=== PATIENT | female | born 1975 | race Caucasian/White ===

== ENCOUNTER 2017-01-16 09:37 | Inpatient (IN) | payer BC ==
[~2017-01-16] VITALS: Ht 175.3 cm; Wt 82.3 kg
[2017-01-16] VITALS (9 sets, daily range): BP systolic 136–159; BP diastolic 81–107; BMI 26.5
[~2017-01-16 09:37] MED LIST: ADDERALL 20 MG20 M1 PO; GLUCOPHAGE1000 MG PO; PRILOSEC20 MG PO; WELLBUTRIN75 MG PO
[2017-01-16 10:24] LABS: COLOR STRAW (YELLOW)
[2017-01-16 10:25] LABS: APPEARANCE CLEAR (CLEAR); BILIRUBIN NEGATIVE (NEGATIVE); GLUCOSE 1000 mg/dL (NEGATIVE); KETONE NEGATIVE (NEGATIVE); LEUKOCYTE ESTERASE NEGATIVE (NEGATIVE); NITRITE NEGATIVE (NEGATIVE); PROTEIN 2+ mg/dL (NEGATIVE); UROBILINOGEN NORMAL (NORMAL)
[2017-01-16 10:26] LABS: BACTERIA MODERATE /hpf (NONE SEEN); EPITHELIAL CELLS 0-5 /hpf (0-5); RED CELLS - URINE 0-5 /hpf (0-5); WHITE CELLS - URINE 0-5 /hpf (0-5); YEAST <1+ /hpf (NONE SEEN)
[2017-01-16 10:48] LABS: KETONE - SERUM NEGATIVE (NEGATIVE)
[2017-01-16 10:57] LABS: ALBUMIN 2.8 g/dL (3.4-5.0); ALKALINE PHOSPHATASE 102 U/L (46-116); ALT (SGPT) 28 U/L (10-68); BILIRUBIN - TOTAL 0.24 mg/dL (0.2-1.3); CALC OSMOLALITY 278 mosm/kg (275-300); CALCIUM 8.5 mg/dL (8.5-10.1); CARBON DIOXIDE 27.6 mmol/L (21.0-32.0); CHLORIDE - SERUM 96 mmol/L (98-107); CREATININE - SERUM 0.7 mg/dL (0.6-1.3); GLUCOSE 325 mg/dL (74-106); PROTEIN - SERUM 7.2 g/dL (6.4-8.2); SODIUM 131 mmol/L (136-145); UREA NITROGEN 22 mg/dL (7-18); eGFR NON AFRICAN AMERICAN > 90 mL/min (90-120)
[2017-01-16 11:01] LABS: CREATINE KINASE 207 UL (21-215)
[2017-01-16 11:17] LABS: TROPONIN-I < 0.017 ng/mL (0.000-0.060)
[2017-01-16 11:40] LABS: BASOPHILS 0.2 % (0.0-2.0); EOSINOPHILS 2.2 % (0-7); HEMATOCRIT 25.4 % (36.0-48.0); IMMATURE GRANULOCYTES 0.2 % (0-5); LYMPHOCYTES 29.5 % (15-50); MCHC 26.8 g/dL (31.0-37.0); MCV 59.2 fL (80.0-100.0); MEAN PLATELET VOLUME 9.1 fL (7.4-10.4); NEUTROPHILS 57.9 % (40-80); PLATELET COUNT 311 10x3/uL (130-400); RBC 4.29 10x6/uL (4.00-5.40); RDW 19.1 % (11.5-14.5); WBC 5.9 10x3/uL (4.8-10.8)
[2017-01-16 11:42] LABS: HEMOGLOBIN 6.8 g/dL (12-16); MCH 15.9 pg (26.0-34.0)
--- NOTE | 2017-01-16 13:25 | NUR ---
rec'd REPORT FROM [facility] (JULIA) ROOM READY FOR PT
--- NOTE | 2017-01-16 14:24 | NUR ---
CONSENT SINGED FOR BLOOD TRANSFUSION - DISUCCES PROCEDURE WITH PT - PT ANXIOUS ABOUT RECEIEVING PRBC. PT AGREED TO TRANSFUSION - WILL START AT 75MG/HR. ~1430 - PT C/O ITCHING - RN PAGED MD TO REQUEST BENADRYL AND TO INFORM OF ADMISSION. 1448 PAGED MD - AWAITING CALL BACK 1510 PAGED MD - AWAITING CALL BACK 1540 RN SPOKE TO MD TO INFORM, PT SLIGHTLY ELEVATED TEAM 99.[address] WOMACK ORDER BENADRYL IV PUSH - GIVEN. 1635 CALLED ANSWERING SERVICE - ASKED IF MDs PAGER IS WORKING - INFORMED AN VIBRATION ANALYST COULD BE AVAILABLE - CALLED MED I/II TO LOCATE MD/VIBRATION ANALYST. SPOKE TO EFREN - PT'S BLOOD SUGAR AT 427, RECHECK AT 402, PT REFUSED STAT LAB DRAW, AND PT REFUSED 20 UNITS HUMALOG, NOTIFIED FISH SKINNING MACHINE FEEDER - PT AGREED TO 15 UNITS HUMALOG - GIVEN. WILL REASSESS BLOOD SUGAR IN 30 MINUTES 1650 - TEMP 100.1 - DR. WOMACK ON UNIT FOR ASSESSMENT - INFORMED OF TEMP. 1330
--- NOTE | 2017-01-16 14:44 | NUR ---
Patient Name: MELY FRY Admission Status: ER Accout number: [id number] Admission Date: 01-16-2017 : 1975 Admission Diagnosis: anemia w/ tachycardia Attending: MILAGRO Current LOS: 1 Anticipated DC Date: 01-18-2017 Planned Disposition: Home Primary Insurance: [employer] [facility] Discharge Planning Comments: Cm met with patient to complete initial discharge planning assessment. Patient gave consent to complete assessment. Patient reports she lives home independently with her significant other. She denied use of community resources. Patient plans to return to home at discharge with her significant other. CM will continue to follow and assist with dc plan/needs. Manager Story: Emma Redd RN, [facility] [phone] Is the patient Alert and Oriented? Yes 0 * PCP Dr. Aguirre 0 * Pharmacy [facility] on [address] 0 * Preadmission Environment Home with Family 0 * ADLs Independent 0 * Equipment None 0 * List name and contact numbers for known caregivers / representatives who currently or will assist patient after discharge: Shawn Mccrary - [facility] - [phone] 0 * Community resources currently utilized None 0 * Additional services required to return to the preadmission environment? No 0 * Can the patient safely return to the preadmission environment? Yes 0 * Has this patient been hospitalized within the prior 30 days at any hospital? No
--- NOTE | 2017-01-16 15:02 | NUR ---
REQUESTED RESULTS AND UPDATE OF LAB
[2017-01-16] MEDS ORDERED: LEXAPRO10 MG PO (16:25)
[2017-01-16] MEDS ORDERED: DIFLUCAN150 MG PO (16:26)
--- NOTE | 2017-01-16 16:56 | NUR ---
DECREASED PRMB TO 10O ML/HOUR
--- NOTE | 2017-01-16 16:57 | NUR ---
RECHECKED BLOOD SUGAR [address] WOMACK
--- NOTE | 2017-01-16 17:30 | NUR ---
AT BEDSIDE FOR ASSESSMENT - REC'D ORDERS SEE WENDY CPOC
--- NOTE | 2017-01-16 18:00 | NUR ---
SIGNIFACANT OTHER IN ROOM VISITING. 2ND UNIT PRBC INFUSING - PT VOICED NOT CONCERNS OR DISTRESS. DR. NOVAK ORDERED 14MCG NICOTINE PATCH. 1814 X-RAY TECH AT BEDSIDE TO TRANPORT PT TO X-RAY - PT VISITING WITH FAMILY ASKE TO RTN LATER TONIGHT. TECH AGREED TO RTN FOR PT. 1829 SISTER CALLED - ANSWERED ALL QUESTIONS PER PT REQUEST - CPOC
--- NOTE | 2017-01-16 19:15 | NUR ---
SHIFT ASSESSMENT COMPLETED. SIGNIFICANT OTHER AT BEDSIDE. WITNESSED LIVING WILL. RT WRIST 20G PIV INTACT INFUSING PRBC'S @ 150ML/HR. NO REACTION NOTED. SCABS/SORES NOTED TO UPPER ARMS, BACK AND SCALP LINE. SCD'S ON TO BILATERAL LE'S AND WORKING PROPERLY. HEELS BRIDGED. +4 PITTING EDEMA TO LOWER HALF OF LEGS BILATERALLY. SINUS TACHYCARDIAC ON THE MONITOR IN THE 110'S. WILL MONITOR.
[2017-01-16] MEDS ORDERED: ZANAFLEX4 MG PO (19:58)
--- NOTE | 2017-01-16 20:18 | NUR ---
IV LASIX GIVEN. PRBC'S COMPLETED AT 2014. NO REACTION NOTED. WILL MONITOR.
--- NOTE | 2017-01-16 21:30 | NUR ---
FSBS ASSESSSED. SUGAR-157. DENIES SLIDING SCALE INSULIN AT THIS TIME OR NICOTINE PATCH. REQUESTING ZANAFLEX. MANAGER PLACEMENT MADE AWARE. WILL MONITOR.
[2017-01-16 23:45] LABS: MAGNESIUM - SERUM 2.3 mg/dL (1.8-2.4); THYROID STIMULATING HORMONE 1.9 uIU/mL (0.36-3.74)
--- NOTE | 2017-01-17 | NUR ---
ASSISTED UP TO BSC. URINE AND BM NOTED AND EMPTIED, BACK TO BED PER SELF. CONNECTED BACK TO IV FLUIDS. NS @ 75ML/HR RESTARTED.
--- NOTE | 2017-01-17 02:00 | NUR ---
EYES CLOSED. LAYING ON LEFT SIDE. NO ACUTE DISTRESS NOTED. WILL MONITOR.
[2017-01-17 03:45] VITALS: BP 138/84
--- NOTE | 2017-01-17 04:00 | NUR ---
EYES CLOSED. NO ACUTE DISTRESS NOTED. WILL MONITOR.
--- NOTE | 2017-01-17 04:40 | NUR ---
ISAAK SCHWARTZ AT BEDSIDE TO DRAW AM LABS. ASSESSED VITAL SIGNS. EMPTIED BSC. PO ZANAFLEX GIVEN. WILL MONITOR.
[2017-01-17 05:11] LABS: BASOPHILS 0 % (0.0-2.0); EOSINOPHILS 2.5 % (0-7); IMMATURE GRANULOCYTES 0.2 % (0-5); LYMPHOCYTES 29.1 % (15-50); MCHC 28.7 g/dL (31.0-37.0); MEAN PLATELET VOLUME 9.9 fL (7.4-10.4); MONOCYTES 10.4 % (2-11); NEUTROPHILS 57.8 % (40-80); PLATELET COUNT 328 10x3/uL (130-400); RBC 4.99 10x6/uL (4.00-5.40); RDW 21.9 % (11.5-14.5); WBC 6.3 10x3/uL (4.8-10.8)
[2017-01-17 05:13] LABS: HEMOGLOBIN A1C 12.9 % (4.8-6.0)
[2017-01-17 05:15] LABS: CALC OSMOLALITY 291 mosm/kg (275-300); CARBON DIOXIDE 28.2 mmol/L (21.0-32.0); CHLORIDE - SERUM 104 mmol/L (98-107); CHOL - HDL RATIO 4.1 ratio (2.3-4.1); CHOLESTEROL, TOTAL 231 mg/dL (0-200); CREATININE - SERUM 0.7 mg/dL (0.6-1.3); GLUCOSE 352 mg/dL (74-106); HDL CHOLESTEROL 57 mg/dL (32-96); LDL CHOLESTEROL 132 mg/dL (0-100); LDL-HDL RATIO 2.3 ratio (1.5-3.5); POTASSIUM - SERUM 4.5 mmol/L (3.5-5.1); SODIUM 138 mmol/L (136-145); TRIGLYCERIDE 214 mg/dL (30-200); UREA NITROGEN 18 mg/dL (7-18); eGFR NON AFRICAN AMERICAN > 90 mL/min (90-120)
--- NOTE | 2017-01-17 05:15 | NUR ---
STANDING UP IN ROOM BRUSHING HAIR. NO ACUTE DISTRESS NOTED. WILL MONITOR.
[2017-01-17 05:18] LABS: % SATURATION 5 % (15-55); IRON 22 ug/dl (35-150); TOTAL IRON BIND CAPACITY 431 ug/dl (260-445); UNSAT IRON BIND CAPACITY 409 ug/dl (150-375)
[2017-01-17 05:28] LABS: HEMATOCRIT 31.4 % (36.0-48.0); MCV 62.9 fL (80.0-100.0)
[2017-01-17 07:00] VITALS: BP 146/79
--- NOTE | 2017-01-17 07:00 | NUR ---
REC'D REPORT FROM OUTGOING RN - PT RESTING SUPINE IN BED WITH EYES CLOSED - EASILY AWAKENED BY VERBAL STIMULI - VOICE NO DISTRESS - ASSESSMENT COMPLETE - PT UP TO BSC. 0730 - BREAKFAST TRAY GIVEN TO PT. CPOC
--- NOTE | 2017-01-17 10:14 | HP ---
PATIENT: MELY FRY MEDICAL RECORD: [id number] ACCOUNT: [id number] LOCATION:[facility] D.2309 : 77 ADMISSION DATE: 01/16/17 HISTORY AND PHYSICAL EXAMINATION HISTORY OF PRESENT ILLNESS: Ms. Fry is a nice 41-year-old white female, who presents initially to the walk-in clinic this morning with weakness, shortness of breath, some chest discomfort. She has a history of uncontrolled diabetes, recent sugars have been running in 300s to 400s. She has been a diabetic for over 10 years. She has a history of gestational diabetes in her earlier 20s with her pregnancies, most recent hemoglobin A1c was 13. She has a history of chronic anemia and has taken iron infusions in the past. She saw Dr. Prieto previously. She does have pretty heavy monthly periods. They usually last 4-5 days and occur about once a month. She has had increasing fatigue and generalized weakness. 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 She works 3 days and states she will gain about 10-15 pounds with being up on her feet and then when she goes home, she is so exhausted and she will diurese over the next few days. She has had polydipsia, polyuria, polyphagia. Her lab reveals a marked microcytic anemia, compatible with an iron deficiency with a hemoglobin of around 6. Her EKG shows a sinus tachycardia. She has got edema. She is admitted at this time for transfusion and further evaluation. PAST MEDICAL HISTORY: Significant for known diabetes for the last 10 years that is complicated by neuropathy. She also has a history of GERD. PAST SURGICAL HISTORY: Include a tubal ligation and cataract surgery. ALLERGIES: None. HOME MEDICATIONS: Include Janumet 1000 b.i.d., Lexapro 10 a day, Adderall 20 every day, Toujeo 45 units a day, Invokana 300 mg a day, OTC Prilosec, Zanaflex, gabapentin 100 t.i.d., and tramadol p.r.n. FAMILY HISTORY: Significant for heart disease and diabetes. SOCIAL HISTORY: Seldom drinks. She smokes a little less than a pack per day. REVIEW OF SYSTEMS: She has had quite a bit of fluctuation in her weight. She has had some chest tightness with marked shortness of breath and generalized weakness and fatigue. She denies any changes in her bowel, states she is chronically constipated. No dysuria, no rashes. PHYSICAL EXAMINATION: GENERAL: Pale and moderately ill in appearance. She is in no distress, but obviously does not feel well. HEENT: Conjunctivae are pale. NECK: Soft and supple. Thyroid is not palpable. HEART: Regular and slightly tachycardic. LUNGS: With good breath sounds. ABDOMEN: Soft. Liver and spleen are not enlarged. EXTREMITIES: Lower extremities reveal no pitting edema of her feet. NEUROLOGIC: Without any gross focal deficits. IMPRESSION: 1. Severe microcytic anemia. HISTORY AND PHYSICAL [id number] MELY FRY 2. Uncontrolled diabetes with neuropathy. 3. Edema. 4. Strong family history of cardiac disease and diabetes. PLAN: Admit, transfuse, check iron studies, hematology consult, check an echo. Must see orders for plan. TRANSINT:[id number] Voice Confirmation ID: [id number] DOCUMENT ID: [id number] NITA WOMACK DO at 1014 CC: [id number] DICTATION DATE: 01/16/171747 MEDIA RELATIONS SPECIALIST: 01/16/172133 ADM IN [facility] [address] [id number]
[2017-01-17 16:00] VITALS: BP 100/58
[2017-01-17 17:00] VITALS: BP 123/82
--- NOTE | 2017-01-17 18:19 | NUR ---
1600-RECIEVED PT AWAKE AND ALERT--NOTED MARKED DECREASED PITTINEDEMA TO BOTH LEGS-PT STATES DECREASED-PT REQUESTING SHOWER AND AMBULATION -NOTIFIED ROUTE SALES REPRESENTATIVE IF ROOM ASSIGNMENT AVAILABLE-STATED NO-NOTIFIED DR WOMACK-RECIEVED VERBAL OK TO ACCOMPANY PT TO CLOSED PT RM WITH SHOWER- 1630-RETURNED TO UNIT-R PERIPHERAL IV RESTARTED N/S AT 75ML/H-COMPLETE NAT SUERO DONE-FAMILY AT [facility]-QUESTIONS ADDRESSED TO BEST OF ABILITY-PT CONTINUES TO REFUSE HABITROL PATCH-FSBS 152-PT STATED FEELS LIGHT HEADED-AGREED WITH PT TO HOLD S/S INSULIN AT THIS
[2017-01-17 19:00] VITALS: BP 128/84
--- NOTE | 2017-01-17 19:32 | NUR ---
REPORT RECIEVED. ASSESSMENT COMPLETEPER LFOW SHEET. VSS. WILL CNOTINUE TO MONITOR DENIES NEEDS.
--- NOTE | 2017-01-17 21:16 | NUR ---
NO NEW CHANGES. VSS. FAMILY AT BEDSIDE. DENIES NEEDS.
[2017-01-17 23:00] VITALS: BP 134/89
--- NOTE | 2017-01-17 23:04 | NUR ---
PT SLEEPING COMFORTABLY. VSS. WILL CONTINUE TO MONITOR.
--- NOTE | 2017-01-18 03:16 | NUR ---
NO NEW CHANGES AT THIS TIME. VSS. PT SLEPEING COMFORTABLY. WILL CONTINUE TO MONITOR.
--- NOTE | 2017-01-18 05:10 | NUR ---
REC'D PT TO ROOM 1215 VIA W/C TRANSPORT FROM ICU. VSS. PT A&OX3. ORIENTED TO ROOM, BATHROOM, BED CONTROLS AND CL USE. BED PLACED IN LOW POSITION WITH UPPER SIDE RAILS RAISED X2. CL/PHONE WITHIN REACH. PT RATES PAIN 2-3/10 AT THIS TIME. ICE GIVEN PER REQUEST. DENIES ADDITIONAL NEEDS AT THIS TIME.
[2017-01-18 07:45] VITALS: BP 84/45
--- NOTE | 2017-01-18 08:15 | NUR ---
PATIENT IS RESTING QUIETLY IN HER BED. SHE HAS EATEN HER MORNING MEAL AND DENIES ANY NAUSEA. HER BS ARE ACTIVE, LUNGS ARE CLEAR AND RRR AUSCULTATES. HER IV SITE DRESSING NEEDS REPAIR, INSERTION SITE IS WITHOUT REDNESS OR EVIDENCE OF IRRITATION. SHE ANTICIPATES DISCHARGE TODAY AND VERIFIES THAT SHE DID REFUSE IV FLUIDS EARLIER THIS MORNING. HYPOTENSION NOTED AND PATINET AGREES TO HAVE FLUIDS REINITIATED. SHE STATES THAT UPON ADMISSION SHE HAD 4+ PITTING EDEMA TO BLE, CURRENTLYSHE HAS TRACE EDEMA BLE NOTED. SHE DOES C/O MILD NICOLE AND OCCASIONAL LE MUSCLE CRAMPS. COFFEE PROVIDED PER REQUEST. DENIES OTHER NEEDS AT THIS TIME. CALL LIGHT IS WITHIN HER REACH.
[2017-01-18 09:34] LABS: BASOPHILS 0.1 % (0.0-2.0); EOSINOPHILS 1.8 % (0-7); HEMATOCRIT 30.5 % (36.0-48.0); HEMOGLOBIN 8.6 g/dL (12-16); IMMATURE GRANULOCYTES 0.1 % (0-5); LYMPHOCYTES 23.1 % (15-50); MCHC 28.2 g/dL (31.0-37.0); MCV 63.9 fL (80.0-100.0); MONOCYTES 9.5 % (2-11); NEUTROPHILS 65.4 % (40-80); PLATELET COUNT 281 10x3/uL (130-400); RBC 4.77 10x6/uL (4.00-5.40); RDW 22.3 % (11.5-14.5)
[2017-01-18 09:35] LABS: WBC 8.1 10x3/uL (4.8-10.8)
--- NOTE | 2017-01-18 09:43 | NUR ---
PATIENT RESTING QUIETLY WITHOUT NOTED NEEDS.
[2017-01-18 09:55] LABS: CALC OSMOLALITY 278 mosm/kg (275-300); CARBON DIOXIDE 24.5 mmol/L (21.0-32.0); CHLORIDE - SERUM 102 mmol/L (98-107); CREATININE - SERUM 0.8 mg/dL (0.6-1.3); GLUCOSE 167 mg/dL (74-106); SODIUM 135 mmol/L (136-145); UREA NITROGEN 27 mg/dL (7-18); eGFR NON AFRICAN AMERICAN 85 mL/min (90-120)
--- NOTE | 2017-01-18 10:30 | NUR ---
PATIENT UP AND ABOUT; IN WHEELCHAIR WITH FAMILY ESCORTING PATIENT TO GO OUTSIDE. REMAINS STABLE WITH NO SIGNS OF DISTRESS.
--- NOTE | 2017-01-18 12:30 | NUR ---
REMAINS STABLE IN ROOM WITH NO SIGNS OF DISTRESS.
[2017-01-18 12:39] VITALS: BP 122/75
--- NOTE | 2017-01-18 13:30 | NUR ---
UP AND ABOUT IN ROOM WITH VISITORS AT BEDSIDE.
[2017-01-18 14:54] VITALS: Ht 175.3 cm; Wt 82.3 kg
--- NOTE | 2017-01-18 14:59 | NUR ---
Reconnected patient to IV and started existing IV fluid at KVO 20 ml an hour.
--- NOTE | 2017-01-18 15:30 | NUR ---
STATES SHE FELT WEAK WHEN BLOOD SUGAR WAS 130MG/DL AROUND LUNCH TIME BUT FEELS BETTER NOW AFTER EATING. UP AND ABOUT IN ROOM WITH VISITORS AT BEDSIDE. IN WHEELCHAIR TO GO OUTSIDE WITH VISITORS.
--- NOTE | 2017-01-18 17:30 | NUR ---
REMAINS STABLE IN ROOM WITH NO SIGNS OF DISTRESS. PIV PATENT.
[2017-01-18 19:55] VITALS: BP 159/85
--- NOTE | 2017-01-18 21:20 | NUR ---
FSBS 311, 20 UNITS HUMALOG GIVEN TO LEFT UPPER ARM PER SSI ORDER. NICOTINE PATCH REFUSED BY PT. LASIX GIVEN VIA SIVP PER ORDERS. PT STATES THAT HER DAUGHTER IS COMING TO VISIT AT A LATER TIME AND REQUEST TO TAKE ZANAFLEX WHEN SHE IS READY TO GO TO SLEEP. BED IN LOW POSITION, UPPER SIDE RAILS RAISED. CL/PHONE WITHIN REACH.
--- NOTE | 2017-01-18 22:15 | NUR ---
PT SITTING UP IN HIGH FOWLERS POSITION VISITING WITH FAMILY MEMBERS AT THIS TIME. PAIN 2/10, TO BACK AND LEGS, DENIES NEED FOR INTERVENTION AT THIS TIME. ASKS TO AMBULATE AROUND UNIT WITH FAMILY MEMBER. FALL PRECAUTIONS DISCUSSED, VERBALIZED UNDERSTANDING. BED IN LOW POSITION WITH UPPER SIDE RAILS RAISED X2. CL/PHONE WITHIN REACH. PT VERBALIZES THAT SHE WILL SIT DOWN IF SHE BECOMES LIGHTHEADED.
--- NOTE | 2017-01-18 22:40 | NUR ---
BACK TO ROOM FROM AMBULATING WITH FAMILY MEMBER. DENIES NEEDS AT THIS TIME
--- NOTE | 2017-01-18 23:09 | NUR ---
PAIN 3-4/10, INTERMITTENT TO BACK AND LEGS, BURNING AND TINGLING. REQUEST ULTRAM AND ZANAFLEX. GIVEN PER REQUEST/ORDER. FAMILY MEMBER NO LONGER AT BEDSIDE. ICE CHIPS GIVEN PER REQUEST. DENIES ADDITIONAL NEEDS AT THIS TIME. BED IN LOW POSITION WITH UPPER SIDE RAILS RAISED X2. CL/PHONE WITHIN REACH. WILL CONT TO MONITOR AND ASSIST PRN.
--- NOTE | 2017-01-18 23:54 | NUR ---
PAIN REASSESSMENT COMPLETED. PT RESTING WITH EYES CLOSED WHEN RN ENTERED ROOM. VSS. PAIN 1-210. DENIES NEEDS AT THIS TIME. BED IN LOW POSITION. CL/PHONE WITHIN REACH. WILL CONT TO MONITOR.
[2017-01-19 00:10] VITALS: BP 163/92
--- NOTE | 2017-01-19 02:33 | NUR ---
ROUNDS MADE. PT RESTING WITH EYES CLOSED. RESPIRATIONS REGULAR, NO S/S OF DISTRESS NOTED. BED IN LOW POSITION WITH UPPER SIDE RAILS RAISED X2. CL/PHONE WITHIN REACH. WILL CONT TO MONITOR AND ASSIST PRN.
--- NOTE | 2017-01-19 03:54 | NUR ---
ROUNDS MADE. PT RESTING WITH EYES CLOSED. RESPIRATIONS REGULAR, NO S/S OF DISTRESS. BED IN LOW POSITION WITH UPPER SIDE RAISED X2. CL/PHONE WITHIN REACH. WILL CONT TO MONITOR.
[2017-01-19 04:20] VITALS: BP 139/82
[2017-01-19 06:29] LABS: BASOPHILS 0.2 % (0.0-2.0); EOSINOPHILS 2.6 % (0-7); HEMATOCRIT 31.4 % (36.0-48.0); HEMOGLOBIN 8.8 g/dL (12-16); IMMATURE GRANULOCYTES 0.2 % (0-5); LYMPHOCYTES 30.5 % (15-50); MCV 64.9 fL (80.0-100.0); MEAN PLATELET VOLUME 9.9 fL (7.4-10.4); MONOCYTES 11.5 % (2-11); PLATELET COUNT 304 10x3/uL (130-400); RBC 4.84 10x6/uL (4.00-5.40); RDW 22.8 % (11.5-14.5)
[2017-01-19 06:40] LABS: MCH 18.2 pg (26.0-34.0); WBC 5.8 10x3/uL (4.8-10.8)
[2017-01-19 07:07] LABS: ALBUMIN 2.3 g/dL (3.4-5.0); ANION GAP 8.5 mmol/L (8-16); BILIRUBIN - TOTAL 0.1 mg/dL (0.2-1.3); CARBON DIOXIDE 28.7 mmol/L (21.0-32.0); POTASSIUM - SERUM 4.2 mmol/L (3.5-5.1); PROTEIN - SERUM 6.2 g/dL (6.4-8.2)
[2017-01-19 08:00] VITALS: BP 160/93
--- NOTE | 2017-01-19 08:15 | NUR ---
PATIENT IS AWAKE AND ALERT, DRESSED AND EXPECTING TO BE DISCHARGED HOME TODAY. 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 SHE FEELS THAT HER FSBS COVERAGE WOULD BE MORE BENEFICIAL DURING THE NIGHT HOURS. SHE REQUESTS AN ULTRAM FOR C/O BACK AND HIP PAIN THAT IS A CHRONIC CONCERN FOR HER. SHE RATES THIS PAIN A 4-5. DENIES OTHER NEEDS. IV TO THE RIGHT FA IS PATENT TO IV FLUSH/ PUSH. CALL LIGHT IS WITHIN HER REACH. SHE DENIES OTHER NEEDS AT THIS TIME. ENCOURAGED HER TO CALL FOR AND NEEDS/ QUESTIONS.
--- NOTE | 2017-01-19 09:00 | NUR ---
PATIENT IS AWAKE AND ALERT. 1+ PITTING EDEMA NOTED TO ZAHRA LOWER EXTREMITIES. DISCUSSED WITH HER THAT WE HELD HER LASIX YESTERDAY AND THE HIGH SODIUM DIET SHE HAD LAST NIGHT. HER LOW SODIUM WAS THEN NOTED. WILL REPORT TO PHYSICIAN.
[2017-01-19 09:17] LABS: C-PEPTIDE 2.9 ng/mL (1.1-4.4)
--- NOTE | 2017-01-19 11:30 | NUR ---
PATIENT'S FSBS DOESN'T REQUIRE INSULIN COVERAGE AT THIS TIME. DISCUSSED HER DIET AND CONCERN FOR MANAGEMENT.
--- NOTE | 2017-01-19 12:00 | NUR ---
DR. MOTT IN THE ASSESS PATINET. EXPECTATION IS FOR DISCHARGE. REPORTED HER EDEMA
[2017-01-19] MEDS ORDERED: FERROUS SULFAT325 MG PO (12:10)
[2017-01-19] MEDS ORDERED: NICODERM C1 PATCH .1 TRANSDERM (12:10)
[2017-01-19] MEDS ORDERED: LANTUS INSULIN10 ML SC (12:11)
[2017-01-19] MEDS ORDERED: GLUCOPHAGE500 MG PO (12:11)
[2017-01-19] MEDS ORDERED: LISINOPRIL10 MG PO (12:11)
[2017-01-19] MEDS ORDERED: HUMALOG 30100 UNITS/ SC (12:12)
[2017-01-19] MEDS ORDERED: KLOR-CON 1010 MEQ PO (12:16)
[2017-01-19] MEDS ORDERED: LASIX20 MG PO (12:16)
--- NOTE | 2017-01-19 12:52 | NUR ---
ORDERS FOR DISCHARGE NOTED. PATIENT IS AWARE AND HAS A RIDE HOME ALREADY HERE. WILL PROCESS.
--- NOTE | 2017-01-19 14:38 | NUR ---
DISCUSSED THE DISCHARGE INSTRUCTIONS WITH PATIENT. INCLUDED HER MEDICATIONS ORDERED AND HIGHLIGHTED THEM FOR EASY IDENTIFICATION. SHE UNDERSTANDS THE SLIDING SCALE. STATES THAT SHE HAS SUPPLIES AT HOME. VARIFIES THAT [facility] IS CORRECT. ALL FOLLOW UP APPTS MADE AND WRITTEN OUT FOR HER. SHE IS APPRECIATIVE AND ANXIOUS TO GO HOME. OUT TO CAR VIA WHEELCHAIR, ACCOMPANIED BY VOLUNTEER
--- NOTE | 2017-01-26 14:37 | EC ---
PATIENT:MELY FRY DATE OF SERVICE: 01/16/17 SEX: F MEDICAL RECORD: [id number] DATE OF : [birth year] LOCATION:[facility] AGE OF PATIENT: 41 ADMISSION DATE: 01/16/17 REFERRING PHYSICIAN: INTERPRETING PHYSICIAN: BECKY JOHNSON MD ECHOCARDIOGRAM REPORT ECHO CHARGES 4 ECHO COMPLETE CLINICAL DIAGNOSIS: EDEMA/SOB ECHOCARDIOGRAPHIC MEASUREMENTS (adult normal given) AC root (d.<3.7cm) 1.3 LV Septum d (<1.2 cm> 1.3 Valve Excursion 1.9 LV Septum (systole) 1.5 Left Atria (s.<4.0cm> 3.8 LVPW d(<1.2cm) 1.6 RV (d.<2.3cm) 3.4 LVPW (sytole) 1.7 LV diastole(<5.6CM) 4.2 MV E-F(>70mm/sec) LV systole 2.6 LVOT Diameter 1.8 MV exc.(>10mm) 1.8 Est.ejection fraction (50-75%) Pericardial Effusion N DOPPLER: LVIT A 138 E LA RVSP 20 LVOT 112 AOP1/2T Asc. Ao 132 RVOT 126 RA PA 150 AV Gradient Peak 6.95 AV Mean 3.58 AV Area 3.0 MV Gradient Peak MV Mean MV Area COMMENTS: Photographic Hand Developer: Tano SUTHERLAND Compugraph Operator:Eileen Denis TAPE# PACS DATE OF SERVICE: 01/17/2017 Echocardiogram FINDINGS: 1. Left ventricular chamber size is within normal limits. Left ventricular systolic function is normal. Overall ejection fraction estimated at 65%. 2. Left atrium, right atrium, and right ventricular chamber sizes are within normal limits. 3. Valvular structures have normal structure and motion. ECHOCARDIOGRAM REPORT [id number] MELY FRY 4. Doppler interrogation only reveals mild tricuspid regurgitation. No other valvular insufficiency or stenosis. Pulmonary systolic pressure is normal estimated at 21 mmHg. 5. No evidence of pericardial effusion or left ventricular thrombus. TRANSINT:[id number] Voice Confirmation ID: [id number] DOCUMENT ID: [id number] 01/25/2017 Edited to correct date of service, dm. BECKY JOHNSON MD at [id number] CC: [id number] DICTATION DATE: 01/18/17 1207 PHARMACOVIGILANCE SAFETY EXPERT: 01/18/17 1420 DIS IN 01/19/17 [address] [place] [id number] [id number]
== END 2017-01-19 14:42 | disposition home or self-care (01) | DRG 812 ==
LOC: D.ER 09:37 → D.ICU 12:59 → D.WS 12:59
PROVIDERS: Emergency Medicine; Family Medicine; ADMIT Family Medicine
DX: D50.9 Iron deficiency anemia, unspecified (principal); E11.65 Type 2 diabetes mellitus with hyperglycemia; E11.40 Type 2 diabetes mellitus with diabetic neuropathy, unspecified; Z79.4 Long term (current) use of insulin; R07.9 Chest pain, unspecified; Z72.0 Tobacco use

== ENCOUNTER 2017-10-17 05:12 | Inpatient (IN) | payer BC ==
[~2017-10-17] VITALS: Ht 175.3 cm; Wt 88.0 kg
[2017-10-17] VITALS (44 sets, daily range): BP systolic 106–183; BP diastolic 66–115; BMI 29.6
[~2017-10-17 05:12] MED LIST changes: +DIFLUCAN150 MG PO; +FERROUS SULFAT325 MG PO; +GLUCOPHAGE500 MG PO; +HUMALOG 30100 UNITS/ SC; +KLOR-CON 1010 MEQ PO; +LANTUS INSULIN10 ML SC; +LASIX20 MG PO; +LEXAPRO10 MG PO; +LISINOPRIL10 MG PO; +NICODERM C1 PATCH .1 TRANSDERM; +ZANAFLEX4 MG PO
[2017-10-17 05:40] LABS: ALBUMIN 2.1 g/dL (3.4-5.0); ALKALINE PHOSPHATASE 226 U/L (46-116); ALT (SGPT) 22 U/L (10-68); CALCIUM 8.1 mg/dL (8.5-10.1); CARBON DIOXIDE 22.8 mmol/L (21.0-32.0); CHLORIDE - SERUM 90 mmol/L (98-107); CKMB 5.9 U/L (0.0-3.6); CREATINE KINASE 195 UL (21-215); CREATININE - SERUM 1.3 mg/dL (0.6-1.3); POTASSIUM - SERUM 4.7 mmol/L (3.5-5.1); PROTEIN - SERUM 6.5 g/dL (6.4-8.2); SODIUM 123 mmol/L (136-145); TROPONIN-I < 0.017 ng/mL (0.000-0.060); UREA NITROGEN 26 mg/dL (7-18); eGFR NON AFRICAN AMERICAN 48 mL/min (90-120)
[2017-10-17 05:41] LABS: CALC OSMOLALITY 314 mosm/kg (275-300); GLUCOSE 1210 mg/dL (74-106)
[2017-10-17 05:48] LABS: BASOPHILS 0.1 % (0-2); EOSINOPHILS 2.4 % (0-7); HEMATOCRIT 26.4 % (36.0-48.0); HEMOGLOBIN 7.3 g/dL (12-16); IMMATURE GRANULOCYTES 0.3 % (0-5); LYMPHOCYTES 15.7 % (15-50); MCH 17.8 pg (26.0-34.0); MCHC 27.7 g/dL (31.0-37.0); MCV 64.2 fL (80.0-100.0); MEAN PLATELET VOLUME 9.9 fL (7.4-10.4); MONOCYTES 6.1 % (2-11); NEUTROPHILS 75.4 % (40-80); PLATELET COUNT 417 10x3/uL (130-400); RBC 4.11 10x6/uL (4.00-5.40); WBC 9.6 10x3/uL (4.8-10.8)
[2017-10-17 07:01] LABS: ANION GAP 15.2 mmol/L (8-16); CALCIUM 7.8 mg/dL (8.5-10.1); CARBON DIOXIDE 22.7 mmol/L (21.0-32.0); CREATININE - SERUM 1.3 mg/dL (0.6-1.3); MAGNESIUM - SERUM 1.9 mg/dL (1.8-2.4); PHOSPHOROUS 4.9 mg/dL (2.5-4.9); POTASSIUM - SERUM 4.9 mmol/L (3.5-5.1)
[2017-10-17 07:19] LABS: CHOL - HDL RATIO 5.7 ratio (2.3-4.1); CHOLESTEROL, TOTAL 302 mg/dL (0-200); HDL CHOLESTEROL 53 mg/dL (32-96); TRIGLYCERIDE 521 mg/dL (30-200)
[2017-10-17] MEDS ORDERED: ULTRAM50 MG PO (07:45)
[2017-10-17] MEDS ORDERED: GABAPENTIN100 MG PO (07:46)
--- NOTE | 2017-10-17 09:59 | NUR ---
0730-RECIEVED AWAKE ALERT-MARKED SOBOE-ABLE TO MVE SELF FROM STRETCHER TO BED-DIFFICULT WITH STRENGTH-ASSISTED TO RESTROOM-REQUIRED 50%ASSIST WITH BALANCE ISSUE-QUESTIONED HERSELF IF SHE HAS M.S.-NOTED MARKED EDEMA TO BOTH LEGS-STATED VISION BECOMING BLURRY-NOTED R PERIPHERAL IV INFUSING N/S AT 100ML/H INSULIN GTT AT 5UNITS/H PLACED TO MONITOR FOR ST 110-NIBP 147/91 C/O SOME SOB AND HEAVINESS-ASSISTED TO BED 0815 L HAND 22 G OBTAINED LAB SENT FOR GLUCOSE CHECK-INSULIN GTT CHANGED TO L ARM--R 20G FOR PRBC -CONSENT OBTAINED FOR BLOOD 0830-PRBC STARTED IN R ARM-BENADRYL 12.5MG IVP GIVEN PREMED TYLENOL PO GIVEN FOR PREMED 0915-C/O TIGHTNESS TO CHEST-O2 SAT 100-HR 110-NIBP 186/114-DR MARCUS PG'D -LASIX 10MG PO GIVEN
[2017-10-17 10:27] LABS: MAGNESIUM - SERUM 1.8 mg/dL (1.8-2.4); PRO BNP 525 pg/mL (0-125); TROPONIN-I < 0.017 ng/mL (0.000-0.060)
[2017-10-17 15:06] LABS: CALC OSMOLALITY 277 mosm/kg (275-300); CALCIUM 8.1 mg/dL (8.5-10.1); CARBON DIOXIDE 24.6 mmol/L (21.0-32.0); CHLORIDE - SERUM 99 mmol/L (98-107); CREATININE - SERUM 0.8 mg/dL (0.6-1.3); GLUCOSE 263 mg/dL (74-106); MAGNESIUM - SERUM 1.7 mg/dL (1.8-2.4); POTASSIUM - SERUM 4.3 mmol/L (3.5-5.1); SODIUM 132 mmol/L (136-145); UREA NITROGEN 23 mg/dL (7-18); eGFR NON AFRICAN AMERICAN 84 mL/min (90-120)
[2017-10-17 18:12] LABS: CALCIUM 7.1 mg/dL (8.5-10.1); CARBON DIOXIDE 24.2 mmol/L (21.0-32.0); CHLORIDE - SERUM 104 mmol/L (98-107); CREATININE - SERUM 0.7 mg/dL (0.6-1.3); MAGNESIUM - SERUM 1.5 mg/dL (1.8-2.4); SODIUM 137 mmol/L (136-145); UREA NITROGEN 20 mg/dL (7-18); eGFR NON AFRICAN AMERICAN > 90 mL/min (90-120)
[2017-10-17 18:14] LABS: CALC OSMOLALITY 281 mosm/kg (275-300); GLUCOSE 181 mg/dL (74-106); POTASSIUM - SERUM 3.4 mmol/L (3.5-5.1)
--- NOTE | 2017-10-17 19:01 | NUR ---
163-DR MARCUS AT [facility]-SPOKE WITH PT AND STATUS REPORT GIVEN 850-ORDRS RECIEVED-ADDRESSED INSULIN-INSULIN GTT D/C'D-S/S STARTED-ULTRAN 50MG PO GIVEN
--- NOTE | 2017-10-17 19:20 | NUR ---
SHIFT ASSESSMENT COMPLETE. PT IS A&O X4 WITH NO COMPLAINTS OF PAIN. O2 @ 2 L/MIN. S1S2 AUDIBLE, HR 109, MONITOR READING SINUS TACH. RR SHALLOW, CLEAR THROUGHOUT ALL LOBES. ABD FLAT, SOFT, NON TENDER TO TOUCH. BS ACTIVE X4. ASSISTED TO BATHROOM, CLEAR YELLOW URINE NOTED. PIV TO L & R FOREARM. L FOREARM INFUSING NS @ 35 ML/HR. LOWER EXT +2 PITTING EDEMA. L AND R PEDAL PULSES WEAK, FEET ARE WARM TO TOUCH. SHE STATES THAT SHE IS HAVING A HARD TIME FEELING HER L FOOT, REFLEXES ARE NORMAL. BED ALARM ON. REFILLED REFRESHMENTS. WILL CONT WITH POC.
--- NOTE | 2017-10-17 19:40 | NUR ---
REFUSED SCDS. EDUCATED ON BENEFITS. WILL CONT TO MONITOR.
--- NOTE | 2017-10-17 21:00 | NUR ---
PO MEDS GIVEN WITH NO COMPLICATIONS. PT DENIES ANY PAIN AT THIS TIME. VSS. WILL CONT WITH POC.
--- NOTE | 2017-10-17 21:10 | NUR ---
FBSB 260. ADMINISTERED 6 UN HUMALOG PER SLIDING SCALE.
[2017-10-17 21:27] LABS: BASOPHILS 0.1 % (0-2); HEMATOCRIT 28.9 % (36.0-48.0); IMMATURE GRANULOCYTES 0.3 % (0-5); LYMPHOCYTES 16.3 % (15-50); MCH 20.8 pg (26.0-34.0); MCHC 30.8 g/dL (31.0-37.0); MEAN PLATELET VOLUME 9.7 fL (7.4-10.4); MONOCYTES 4.6 % (2-11); NEUTROPHILS 74.7 % (40-80); RBC 4.28 10x6/uL (4.00-5.40); RDW 20.9 % (11.5-14.5); WBC 8.8 10x3/uL (4.8-10.8)
[2017-10-17 21:43] LABS: HEMOGLOBIN 8.9 g/dL (12-16)
[2017-10-17 21:44] LABS: MCV 67.5 fL (80.0-100.0); PLATELET COUNT 318 10x3/uL (130-400)
--- NOTE | 2017-10-17 23:30 | NUR ---
REASSESSMENT COMPLETE. PT STATES PAIN OF 7/10 IN HER HEAD/LEGS/GENERALIZED. ADMINISTERED PRN ULTRAM. ASSISSTED TO RESTROOM. SMALL BM. COMPLETE LINEN CHANGE. PARTIAL BED BATH COMPLETE. NO FURTHER CHANGES. WILL CONT TO MONITOR.
[2017-10-18] VITALS (13 sets, daily range): BP systolic 120–176; BP diastolic 69–100; Ht 175.3 cm; Wt 88.0 kg
--- NOTE | 2017-10-18 00:32 | HP ---
PATIENT: MELY FRY MEDICAL RECORD: [id number] ACCOUNT: [id number] LOCATION:[facility] D.CV07 : 77 ADMISSION DATE: 10/17/17 HISTORY AND PHYSICAL EXAMINATION HISTORY: This is a 42-year-old white female who states she just has not felt well, she feels tired all the time. She has had some chest pain. She presented to the ER last night with those complaints and was found to have glucose of 1210. Her hemoglobin was 7.3. She states she has some chest pain when her hemoglobin gets that low. She has been diagnosed with iron-deficient anemia in the past. Her serum ketones were actually negative. She was admitted to the ICU for close monitoring and further control of her diabetes and her anemia. PAST MEDICAL AND SURGICAL HISTORY: Just reviewing records here at [place], she was admitted in 2011 with some abdominal pain and consult was to primary care for that and it was mentioned that this was the first diagnosis of diabetes, though the patient states that she did have gestational diabetes when she was now 21 years ago. It is unclear if she actually followed up with Dr. Ball at that time for her diabetes. She was admitted into the hospital in December of this year with significant anemia. Her iron was low. Her TIBC was at the very upper end of normal. She had been seen by Dr. Prieto in the past for iron-deficiency anemia and gotten 8 injections of iron at some point. I do not know if she has had any other iron treatments. She states she did see digital media coordinator one-time, I am not sure how long ago. She was started on medicines for diabetes, but she never went back. She states her A1c has been as high as 15 and got down to 10. She states she has lost a lot of weight at some point, but never really got her A1c down below the 10. She states she was most recently followed by Dr. Maldonado for her diabetes, but she states she missed one appointment with him and got a letter basically terminating her from the clinic. She ran out of all her medicines and has not had any for a month and a half to 2 months. She also has a history of depression and neuropathy, most likely due to her uncontrolled diabetes. She has a long history of fatigue and weakness as well as depression. PAST SURGICAL HISTORY: Bilateral tubal ligation, cataract repair. DRUG ALLERGIES: None known. HOME MEDICATIONS: I do not know that she was taking any of these right now, but at sometime has been on Janumet at 1000/50 twice a day; Adderall-XR 20 (not sure of a diagnosis for ADD or ADHD; the patient states she was taking it to elderly caregiver her energy); Lexapro 20 mg once a day; Toujeo 45 units once a day; Invokana 300 mg once a day; Prilosec 20 mg once a day; Zanaflex 4 mg at bedtime; gabapentin prescribed as 100 mg 3 times a day, but she would only take 1 or 2 at bedtime because it made her drowsy; tramadol p.r.n.; lisinopril uncertain dose daily; Lasix as needed. She got her medicines at [facility]. HABITS: She smokes less than 1 pack of cigarettes a day. She drinks alcohol occasionally. Denies any drug use. SOCIAL HISTORY: Recently ended a 16 year relationship with significant other. She has a 19-year-old daughter and 18-year-old son that are nearby. 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 FAMILY HISTORY: Father at 64 of end-stage renal disease. He had diabetes. HISTORY AND PHYSICAL [id number] MELY FRY He had coronary artery disease. He had peripheral artery disease and required amputations. Mother at 65 of cerebral bleed. She was on blood thinners. She also had diabetes and also had coronary artery disease. Sister at age 38 in her sleep of unknown causes and one sister is alive with seizure disorder. REVIEW OF SYSTEMS: GENERAL: She states her weight has been up to a size of 300 pounds, but usually now around 175 to 180. HEENT: No particular sinus or allergy problems. RESPIRATORY: Long time smoker. No diagnosis of COPD, asthma or pneumonia. CARDIAC: No known coronary artery disease. GASTROINTESTINAL: No known diarrhea or constipation. She has taken omeprazole for heartburn. GENITOURINARY: No known problems there. MUSCULOSKELETAL: She states she hurts all over and will hurt for long periods of time like a few felt for her radial pulse, she may have pain in that area where you pressed on her radial artery for an hour. She has numbness and tingling and pains down both legs and to her feet. NEUROLOGIC: No seizures, no migraine headaches. She states she is concerned about the possibility of MS, but states she had a CT of her head done at [facility] about 6 months ago, I need to get a copy of that. PSYCHIATRIC: She has depression. PHYSICAL EXAMINATION: VITAL SIGNS: Today, temperature 98.2, pulse 114, respirations 21, blood pressure is 169/106, O2 sat 99%. GENERAL: She is awake, alert, does not appear in acute distress. SKIN: Warm, dry. HEENT: Grossly within normal limits. NECK: Supple. HEART: Tachycardia. No murmur. LUNGS: Clear to auscultation. No wheeze or rales. ABDOMEN: Soft, flat, maybe a little tenderness in the left upper quadrant. No guarding, no rebound, no mass. EXTREMITIES: She has 2+ pitting edema in the lower extremities with tenderness to palpation anywhere. NEUROLOGIC: She has neuropathy symptoms in her lower extremities. LABORATORY DATA: From the ER, CBC with a white count of 9600, hemoglobin 7.3, hematocrit 26.4. Basic metabolic panel; sodium 123, potassium 4.7, chloride 90, CO2 22.8, BUN 26, creatinine 1.3, glucose 1210, alkaline phosphatase 226. Other LFTs were all okay. CK 195, CK-MB 5.9, troponin less than 0.017. Total cholesterol 302, HDL 53, triglycerides 521, LDL is not calculated due to the triglycerides being so high. ASSESSMENT: 1. Uncontrolled diabetes, but not diabetic ketoacidosis. 2. Iron-deficient anemia. 3. Hypertension. 4. Peripheral neuropathy. PLAN: She is in CVICU for close monitoring, on insulin drip now to get her sugar down. We will monitor her electrolytes. We will start her on appropriate meds when the time is right. Discussed statin drugs. She states she was never told that she needed to be on the statin drug. We will get CT of the head HISTORY AND PHYSICAL [id number] MELY FRY report done from [facility]. Further review in the hospital notes, she has a CPAP titration done in December of 2016 and it was 2.9, which is normal. Other tests and r procedures as warranted. TRANSINT:[id number] Voice Confirmation ID: [id number] DOCUMENT ID: [id number] ARIANA MARCUS MD at 0032 CC: [id number] DICTATION DATE: 10/17/17 170 CHEMIST BIOLOGICAL: 10/17/17 182 ADM IN [place] [id number] [place] [id number]
--- NOTE | 2017-10-18 01:25 | NUR ---
PT RESTING ON L SIDE WITH NO SIGNS OF ACUTE DISTRESS NOTED. VSS. WILL CONT WITH POC.
--- NOTE | 2017-10-18 03:30 | NUR ---
REASSESSMENT COMPLETE. ASSISTED PT TO BATHROOM. GAIT IS IMPROVING AND SHE STATES THAT HER L FOOT IS HAVING MORE SENSATION. SEE FLOWSHEET FOR DETAILS. NO FURTHER NEEDS AT THIS TIME. WILL CONT WITH POC.
--- NOTE | 2017-10-18 05:30 | NUR ---
LAB AT BEDSIDE. PT DENIES ANY NEEDS. NO COMPLAINTS AT THIS TIME. VSS. WILL CONT WITH POC.
[2017-10-18 05:59] LABS: BASOPHILS 0.1 % (0-2); EOSINOPHILS 3.6 % (0-7); HEMATOCRIT 29.7 % (36.0-48.0); HEMOGLOBIN 9.1 g/dL (12-16); IMMATURE GRANULOCYTES 0.4 % (0-5); LYMPHOCYTES 20.7 % (15-50); MCH 20.8 pg (26.0-34.0); MCHC 30.6 g/dL (31.0-37.0); MEAN PLATELET VOLUME 9.8 fL (7.4-10.4); MONOCYTES 7.1 % (2-11); NEUTROPHILS 68.1 % (40-80); PLATELET COUNT 305 10x3/uL (130-400); RBC 4.37 10x6/uL (4.00-5.40); RDW 20.9 % (11.5-14.5); WBC 8.5 10x3/uL (4.8-10.8)
--- NOTE | 2017-10-18 06:30 | NUR ---
ADMINISTERED 6 UN HUMALOG PER SLIDING SCALE. FSBS 264
[2017-10-18 06:31] LABS: HEMOGLOBIN A1C 13.9 % (4.8-6.0)
[2017-10-18 06:34] LABS: CALC OSMOLALITY 279 mosm/kg (275-300); CALCIUM 8.3 mg/dL (8.5-10.1); CARBON DIOXIDE 26.6 mmol/L (21.0-32.0); CHLORIDE - SERUM 102 mmol/L (98-107); CREATININE - SERUM 0.8 mg/dL (0.6-1.3); GLUCOSE 219 mg/dL (74-106); SODIUM 135 mmol/L (136-145); UREA NITROGEN 21 mg/dL (7-18); eGFR NON AFRICAN AMERICAN 84 mL/min (90-120)
[2017-10-18 06:40] LABS: POTASSIUM - SERUM 4.2 mmol/L (3.5-5.1)
--- NOTE | 2017-10-18 08:15 | NUR ---
PT UP TO RESTROOM. VOIDED WITHOUT DIFFICULTY. AMBUALTED TO CHAIR WITHOUT ASSIST.
--- NOTE | 2017-10-18 08:30 | NUR ---
DR. MARCUS AT BEDSIDE. UPDATED ON PT'S STATUS.
--- NOTE | 2017-10-18 09:54 | NUR ---
PT ASSISTED BACK TO BED. CALL LIGHT WITHIN REACH.
--- NOTE | 2017-10-18 12:05 | NUR ---
PT SITTING UP IN BED. SET UP WITH BREAKFAST TRAY.
--- NOTE | 2017-10-18 14:23 | NUR ---
PT RESTING IN BED WITH EYES CLOSED. RESPIRATIONS EQUAL AND UNLABORED.
--- NOTE | 2017-10-18 16:27 | NUR ---
PT SITTING UP IN BED VISITING WITH FAMILY. GIVEN FRESH TEA. NO OTHER NEEDS AT THIS TIME.
--- NOTE | 2017-10-18 18:45 | NUR ---
DR. MARQUEZ AT BEDSIDE.
--- NOTE | 2017-10-18 19:20 | NUR ---
SHIFT ASSESSMENT COMPLETE. PT IS A&O X4 WITH NO COMPLAINTS OF PAIN OR DISCOMFORT AT THIS TIME. ASSISTED TO RESTROOM. WASTED THE FIRST URINE. WILL START 24 HOUR URINE COLLECTION NOW. PT'S GAIT IS IMPROVING, BUT SHE STATES THAT HER LEFT FOOT IS STILL FEELING NUMB. +2 PITTING EDEMA NOTED IN LOWER EXT, PEDAL PULSES ARE WEAK. EXT ARE WARM TO TOUCH WITH NORMAL REFLEXES. S1S2 AUDIBLE, RR EVEN AND UNLABORED, CLEAR LUNG HERNANDEZ THROUGHOUT ALL LOBES. ABD IS SOFT AND NON TENDER TO TOUCH, BS ACTIVE X4. SHE STATES THAT SHE DID HAVE A SMALL BM TODAY. REFUSES SCDS AT THIS TIME. SET UP DINNER TRAY PROVIDED BY [employer]. NO FURTHER NEEDS AT THIS TIME. WILL CONT WITH POC.
--- NOTE | 2017-10-18 21:00 | NUR ---
FSBS 145. NO INSULIN ADMIN PER SLIDING SCALE. PO MEDS TAKEN WITHOUT DIFFICULTY. SHE DENIES ANY NEEDS AT THIS TIME. REFILLED REFRESHMENTS. REPOSITONED FOR COMFORT. NO FURTHER NEEDS AT THIS TIME.
--- NOTE | 2017-10-18 23:00 | NUR ---
L ARM BP 176/100 R ARM BP 161/101 PT STATES THAT "HER HEAD IS GOING TO EXPLODE." PAGED PMO CONSULTANT DRSusana FOR DR. MARCUS. AWAITING HIS RESPONSE. ADMINISTERED PRN ULTRAM, REPOSITIONED FOR COMFORT. WILL CONT WITH POC.
--- NOTE | 2017-10-18 23:45 | NUR ---
BP IS NOW 148/68. SHE STATES THAT SHE IS FEELING BETTER AT THIS TIME. NO CALL BACK FROM DR. DICKERSON. WILL CONT WITH POC.
--- NOTE | 2017-10-19 00:05 | NUR ---
ASSISTED TO RESTROOM. GAIT STEADY. EXCRETED 300 ML CLEAR YELLOW URINE. XFER TO COLLECTION BIN ON ICE. WILL CONT TO MONITOR.
--- NOTE | 2017-10-19 01:30 | NUR ---
PT RESTING PEACEFULLY AT THIS TIME WITH NO DISTRESS NOTED. WILL CONT WITH POC.
[2017-10-19 03:00] VITALS: BP 131/86
--- NOTE | 2017-10-19 03:30 | NUR ---
ASSISTED PT TO RESTROOM. 350 ML CONCENTRATED URINE EXCRETED WITH SOME WHITE SEDIMENT NOTED. REFILLED ICE TRAY HOLDING 24 HOUR URINE COLLECTION. SHE DENIES ANY PAIN AT THIS TIME. SHE WAS ABLE TO WALK HERSELF BACK TO BED. GAIT IS STEADY. NO FURTHER NEEDS. VSS. BP 131/86. WILL CONT WITH POC.
--- NOTE | 2017-10-19 05:30 | NUR ---
PT RESTING WITH NO SIGNS OF ACUTE DISTRESS. HR 99 BPM, NORMAL SINUS RHYTHM. RR EVEN AND UNLABORED. WILL CONT WITH POC.
--- NOTE | 2017-10-19 06:50 | NUR ---
PT THROWING UP IN BATHROOM. DR. DOYLE PAGED.
--- NOTE | 2017-10-19 07:15 | NUR ---
RECEIVED PT FOR CARE. PT RESTING IN BED WITH EYES OPEN. CALL LIGHT WITHIN REACH. PT REPORTS NO NAUSEA AT THIS TIME. ASSESSMENT COMPLETED.
[2017-10-19 07:32] LABS: BASOPHILS 0.2 % (0-2); EOSINOPHILS 3.1 % (0-7); HEMATOCRIT 30.5 % (36.0-48.0); HEMOGLOBIN 9.2 g/dL (12-16); IMMATURE GRANULOCYTES 0.5 % (0-5); LYMPHOCYTES 24.1 % (15-50); MCH 20.9 pg (26.0-34.0); MCHC 30.2 g/dL (31.0-37.0); MCV 69.3 fL (80.0-100.0); MEAN PLATELET VOLUME 9.2 fL (7.4-10.4); MONOCYTES 12.1 % (2-11); PLATELET COUNT 292 10x3/uL (130-400); RDW 21.3 % (11.5-14.5)
[2017-10-19 07:33] LABS: WBC 5.5 10x3/uL (4.8-10.8)
[2017-10-19 07:43] LABS: ALBUMIN 1.6 g/dL (3.4-5.0); ALKALINE PHOSPHATASE 93 U/L (46-116); ALT (SGPT) 17 U/L (10-68); CALC OSMOLALITY 279 mosm/kg (275-300); CALCIUM 8.5 mg/dL (8.5-10.1); CARBON DIOXIDE 27.1 mmol/L (21.0-32.0); CHLORIDE - SERUM 103 mmol/L (98-107); CREATININE - SERUM 0.8 mg/dL (0.6-1.3); GLUCOSE 195 mg/dL (74-106); POTASSIUM - SERUM 3.8 mmol/L (3.5-5.1); PROTEIN - SERUM 5.4 g/dL (6.4-8.2); SODIUM 137 mmol/L (136-145); UREA NITROGEN 16 mg/dL (7-18); eGFR NON AFRICAN AMERICAN 84 mL/min (90-120)
[2017-10-19 08:00] VITALS: BP 146/95
[2017-10-19 12:15] VITALS: BP 123/87
--- NOTE | 2017-10-19 12:37 | NUR ---
Nutrition Follow Up: Pt is eating 23% meal avg on a diabetic diet. Noted per chart pt with N/V. +BM 10/18/17. Wt loss noted. Labs reviewed. Meds noted including Lasix. Rec continue current diet as tolerated. RD following.
--- NOTE | 2017-10-19 14:33 | NUR ---
PT UP TO RESTROOM. VOMITING. GIVEN EMESIS BASIN. CALLING CONSULT TO GI.
--- NOTE | 2017-10-19 15:27 | NUR ---
PT TO CT VIA WHEELCHAIR.
--- NOTE | 2017-10-19 16:00 | NUR ---
PT'S FSBS 72. PT REPORTS "FEELING BAD". CLAMMY. COOL TO TOUCH. GAVE PT APPLE JUICE.
[2017-10-19 16:22] VITALS: BP 120/80
--- NOTE | 2017-10-19 16:30 | NUR ---
PT REPORTS FEELING BETTER. WILL CONTINUE TO MONITOR.
--- NOTE | 2017-10-19 18:22 | NUR ---
PT CONTINUES TO COMPLAIN OF "JUST FEELING BAD". HEADACHE FOR [address] LIVE. ORDERS RECEIVED.
--- NOTE | 2017-10-19 19:30 | NUR ---
REC'D PT RESTING IN BED ON ROOM AIR, PT AWAKENS TO VERBAL STIMULI, ORIENTED X 4, RIGHT FOREARM PIV SALINE LOCKED, LEFT FOREARM PIV SALINE LOCKED, MAEE, PT COMPLAINS OF NUMBNESS IN LEFT FOOT, 3+ PITTING EDEMA NOTED TO LOWER EXT'S, PPP, PT DENIES NEEDS AT THIS TIME, SR UP, CALL LIGHT IN REACH, BED IN LOW POSITION.
[2017-10-19 20:20] LABS: PROTEIN - URINE 399.8 mg/dL (0.0-11.9)
[2017-10-19 20:30] VITALS: BP 153/103
--- NOTE | 2017-10-19 20:45 | NUR ---
EVENING MEDS GIVEN, PT WISHES TO WAIT ON ZANAFLEX UNTIL AFTER SHOWER, ZOFRAN GIVEN SLOW IVP ON REQUEST PRIOR TO IRON AND POTASSIUM PILLS, NO FURTHER NEEDS VOICED.
--- NOTE | 2017-10-19 21:15 | NUR ---
PT TAKEN TO SHOWER VIA WHEELCHAIR DAUGHTER ASSISTING
--- NOTE | 2017-10-19 21:55 | NUR ---
PT RETURNED TO ROOM FROM SHOWER, COMPLETE LINEN CHANGE PROVIDED, PT ASSISTED BACK TO BED AND NICODERM PATCH APPLIED, PT REQUESTING PAIN MEDICATION FOR HEADACHE AND BACK PAIN, BP 165/99
--- NOTE | 2017-10-19 22:05 | NUR ---
ULTRAM AND ZANAFLEX GIVEN ORDERED, PT PROVIDED WARM BLANKET ON REQUEST, NO FURTHER NEEDS VOICED.
--- NOTE | 2017-10-19 23:45 | NUR ---
DR. CALVILLO AT SPEAKING WITH PATIENT, NEW ORDERS REC'D.
--- NOTE | 2017-10-20 01:35 | NUR ---
PT AWAKE COMPLAINS OF BEING NAUSEATED AND HEADACHE RATING PAIN "8", TYLENOL 500MG GIVEN PO, ZOFRAN GIVEN 4MG SLOW IVP FOR NAUSEA.
--- NOTE | 2017-10-20 03:00 | NUR ---
PT RESTING ON LEFT SIDE EYES CLOSED, RESP EVEN AND UNLABORED, WILL CONT TO MONITOR FOR CHANGES.
--- NOTE | 2017-10-20 04:30 | NUR ---
REPORT GIVEN TO JAMA ON [facility].
--- NOTE | 2017-10-20 05:05 | NUR ---
PT TRANSFERRED VIA WHEELCHAIR TO ROOM 1223, ASSISTED PT TO BED, CALL LIGHT IN REACH.
--- NOTE | 2017-10-20 05:54 | NUR ---
PT C/O NICOLE AND NAUSEA, ADM TRAMADOL PO AND ZOFRAN SIVP PER MD ORDERS, SALINE LOCK FLUSHED WITH 10MLS OF NS, ZOFRAN ADM, SALINE LOCK FLUSHED, FSBS 148, PT INFORMED OF NEED FOR STOOL SAMPLE, PT INST TO USE CALL LIGHT WHEN NEEDING TO GET UP TO VOID, PT VERBALIZES UNDERSTANDING, DENIES FURTHER NEEDS AT THIS TIME
[2017-10-20 06:34] LABS: BASOPHILS 0 % (0-2); EOSINOPHILS 2.1 % (0-7); HEMATOCRIT 31.7 % (36.0-48.0); HEMOGLOBIN 9.4 g/dL (12-16); IMMATURE GRANULOCYTES 0.5 % (0-5); LYMPHOCYTES 18.8 % (15-50); MCH 20.7 pg (26.0-34.0); MCHC 29.7 g/dL (31.0-37.0); MCV 69.7 fL (80.0-100.0); MEAN PLATELET VOLUME 9.7 fL (7.4-10.4); MONOCYTES 6.5 % (2-11); NEUTROPHILS 72.1 % (40-80); PLATELET COUNT 306 10x3/uL (130-400); RBC 4.55 10x6/uL (4.00-5.40); RDW 21.9 % (11.5-14.5); WBC 5.7 10x3/uL (4.8-10.8)
[2017-10-20 07:00] LABS: ALBUMIN 1.6 g/dL (3.4-5.0); ALKALINE PHOSPHATASE 92 U/L (46-116); ALT (SGPT) 19 U/L (10-68); CALC OSMOLALITY 271 mosm/kg (275-300); CALCIUM 8.6 mg/dL (8.5-10.1); CHLORIDE - SERUM 103 mmol/L (98-107); CREATININE - SERUM 0.7 mg/dL (0.6-1.3); POTASSIUM - SERUM 3.7 mmol/L (3.5-5.1); PROTEIN - SERUM 5.5 g/dL (6.4-8.2); SODIUM 135 mmol/L (136-145); UREA NITROGEN 13 mg/dL (7-18); eGFR NON AFRICAN AMERICAN > 90 mL/min (90-120)
--- NOTE | 2017-10-20 07:00 | NUR ---
SHIFT REPORT TO DAY SHIFT
[2017-10-20 07:01] LABS: GLUCOSE 138 mg/dL (74-106)
[2017-10-20 07:32] VITALS: BP 158/98
--- NOTE | 2017-10-20 07:32 | NUR ---
RCVD PT FROM Martell WARREN RN. PT LYING ON BACK WITH HOB 20 DEGREES. PT REQUESTS COOL RAG ON FOREHEAD FOR HEADACHE RATED 6/10 AT THIS TIME. PT STATES MEDICATIONS DON'T HELP AND FEELS IT MAY BE DUE TO BS BEING LOWER THAN USED TO. HR-RRR, PPP, PIVS SL NOTED TO LEFT AND RIGHT WRISTS WITH NO EDEMA OR ERYETHEMA NOTED TO SITES. BOWEL SOUNDS ACTIVE X4 WITH LEFT UPPER QUADRANT PAIN AND TENDERNESS ON PALPATION. PT REPORTS VOIDING AND BM WITHOUT DIFFICULTY. NO EDEMA NOTED TO BLE. PT DENIES FURTHER NEEDS AT THIS TIME. WILL CONT TO MONITOR.
--- NOTE | 2017-10-20 08:03 | NUR ---
CALL PLACED TO GI LAB. SPOKE WITH ESTEFANÍA IN LAB REGARDING SCHEDULED 0900 MEDICATIONS. MED LIST REVIEWED WITH ESTEFANÍA AND WAS ADVISED TO HOLD ALL MEDICATIONS EXCEPT PEPCID FOR 1030 AM PROCEDURE. LAB WILL CALL BEFORE COMING TO GET PT.
--- NOTE | 2017-10-20 09:35 | NUR ---
PEPCID AND TYLENOL GIVEN PER ORDERS. SEE EMAR. PT RATES HEADACHE PAIN /10 AT THIS TIME. ADV PT ALL OTHER 0900 MEDICATIONS ARE HELD AT THIS TIME PER GI LAB DUE TO PROCEDURE THIS MORNING. ADV PT IF SHE FEELS SYMPOMATIC WITH BS TO CALL RN. PT VERBALIZED UNDERSTANDING. COOL RAG PLACED ON FOREHEAD PER PT REQUEST. PT DENIES FURTHER NEEDS AT THIS TIME.
--- NOTE | 2017-10-20 10:11 | NUR ---
PT AMB IN CROSS WITH PT AT THIS TIME. PER PHYSICAL THERAPY PT NEEDS OUTPATIENT THERAPY FOR DROPPED FOOT THAT HAS BEEN PROGRESSING OVER LAST YEAR.
--- NOTE | 2017-10-20 10:20 | NUR ---
PT REPORTS TYLENOL NOT HELPING AT ALL BUT DENIES NEEDS FOR ANYTHING AT THIS TIME. PT ASKS FOR BS TO BE TAKEN BEFORE GOING TO GI LAB. ADV PT GI LAB WILL CALL BEFORE THEY COME TO GET HER AND WILL CHECK THEN UNLESS SYMPTOMATIC BEFOREHAND. PT VERBALIZED UNDERSTANDING AND DENIES FURTHER NEEDS.
--- NOTE | 2017-10-20 10:38 | NUR ---
PT OFF UNIT VIA BED WITH GI LAB FOR EGD.
--- NOTE | 2017-10-20 11:31 | NUR ---
PT BACK TO ROOM VIA GI LAB.
--- NOTE | 2017-10-20 11:43 | NUR ---
RN TO PT BEDSIDE. PT SITTING UP IN FOOD TO EAT LUNCH. ADV PT WILL BE CLEAR LIQUID DIET FOR COLONOSCOPY ON FRI. PT VERBALIZED UNDERSTANDING. NS NOTED TO BE INFUSING BY GRAVITY. ORDERS AND EMAR REVIEWED. NO ORDERS NOTED FOR IV FLUIDS. PIV SL AT THIS TIME.
--- NOTE | 2017-10-20 12:09 | NUR ---
2 UNITS HUMALOG GIVEN IN RT ARM SUB Q PER SLIDING SCALE ORDERS. SEE EMAR. PT REFUSED FERROUS SULFATE AND STATES "THAT MEDICINE MAKES MY STOMACH HURT." LISINOPRIL, ZOFRAN INFUSION VIA ALARIS PUMP @ 4.7ML/HR BEGUN, LASIX, LEXAPRO, LIPITOR, AND LOVENOX ALL GIVEN PER ORDERS. SEE EMAR FOR ADMINISTRATION. PT SITTING UP IN BED CONSUMING MEAL TRAY DELIVERED WITH FAMILY IN ROOM FOR SUPPORT. PT DENIES FURTHER NEEDS AT THIS TIME.
--- NOTE | 2017-10-20 14:27 | NUR ---
STOOL SAMPLE COLLECTED. 2ND CUP OF GOLYTELY PROVIDED WITH LEMON [place] SODA AND CUP OF ICE. PT WEIGHED USING BED SCALE AT 192.9. 2+ PITTING EDEMA NOTED TO BLE. PT REPORTS SOME EDEMA NORMAL, BUT NOT PITTING. WILL CONT TO MONITOR.
--- NOTE | 2017-10-20 15:12 | NUR ---
TYLENOL 500MG X1 TAB GIVEN FOR HEADACHE PAIN RATED 5/10 AT THIS TIME. PIV TO RT WRIST D/C'D PER PT REQUEST DUE TO C/O SORENESS AND PAIN AT SITE. BANDAID PLACED OVER SITE. PIV TO LT WRIST PATENT WITH ZOFRAN INFUSING PER ORDERS. BABY WIPES AND 3RD CUP OF GOLYTELY PROVIDED AT THIS TIME. PT DENIES FURTHER NEEDS.
--- NOTE | 2017-10-20 15:58 | NUR ---
PT REPORTS PAIN 4/10 WITH HEADACHE AT THIS TIME.
--- NOTE | 2017-10-20 16:21 | NUR ---
FSBS 259. WILL GIVE HUMALOG ACCORDING TO SLIDING SCALE. PT UP TO BR AT THIS TIME.
--- NOTE | 2017-10-20 16:32 | NUR ---
6 UNITS HUMALOG GIVEN PER SLIDING SCALE WITH FSBS OF 259. V/S ASSESSED AT THIS TIME. ELEVATED BP NOTED. WILL CALL REPORT TO ATTENDING MD.
--- NOTE | 2017-10-20 16:38 | NUR ---
ULTRAM GIVEN PER ORDERS. SEE EMAR FOR ADMINISTRATION. FOR PAIN RATED 6/10 WITH HER HEADACHE. PT DENIES FURTHER NEEDS AT THIS TIME. 4TH CUP OF GOLYTELY PROVIDED.
[2017-10-20 16:40] VITALS: BP 178/104
--- NOTE | 2017-10-20 16:50 | NUR ---
REPORT CALLED TO DR MARCUS'S NURSE ON PT'S ELEVATED BP AND 2+ PITTING EDEMA TO BOTH FEET. NURSE STATES SHE WILL LET HIM KNOW.
--- NOTE | 2017-10-20 17:23 | NUR ---
PAIN REASSESSMENT COMPLETE. PT REPORTS NO RELIEF OF HEADACHE WITH ULTRAM AND STATES "THE GETTING UP AND DOWN ISN'T HELPING ANYTHING." PT REPORTS FINISHING 4TH CUP OF GOLYTELY AND WILL BRING ANOTHER. DENIES FURTHER NEEDS AT THIS TIME.
--- NOTE | 2017-10-20 18:07 | NUR ---
ROUNDS MADE. PT LYING ON BACK. HOB 30 DEGREES HOLDING HEAD AT THIS TIME, BUT DENIES NEEDS FOR PAIN MEDICATION. 4TH CUP OF GOLYTELY PROVIDED. PT CONSUMED 100% OF CLEAR LIQUID MEAL TRAY. EDU PT ON CHANGE IN BP MEDS AND LASIX. PT VERBALIZED UNDERSTANDING AND DENIES FURTHER NEEDS.
[2017-10-20 19:30] VITALS: BP 136/82
--- NOTE | 2017-10-20 19:30 | NUR ---
AWAKE DURING INITIAL ROUNDS. INTRODUCED SELF. V/S TAKEN. ASSESSMENT DONE. STATUS Dx: HYPERGLYCEMIA / ANEMIA. ON ZOFRAN DRIP TO L WRIST. IV SITE OK.
--- NOTE | 2017-10-20 20:11 | NUR ---
FERRLECIT (IRON) IV INFUSION STARTED. SEE E-MAR.
--- NOTE | 2017-10-20 20:21 | NUR ---
HS MEDS GIVEN. SEE E-DEC. YURIDIA ADAMS 1tab PO GIVEN FOR C/O HEADACHE/BACK PAIN.
--- NOTE | 2017-10-20 20:59 | NUR ---
FSBS 200mg/dl. HUMALOG 2units SQ TO L UPPER ARM GIVEN PER SLIDING SCALE.
--- NOTE | 2017-10-20 21:00 | NUR ---
ON TELEMETRY--HR 98/min SR.
[2017-10-20 22:58] VITALS: BP 116/70
--- NOTE | 2017-10-20 22:59 | NUR ---
IRON IV INFUSUON COMPLETED.
--- NOTE | 2017-10-20 23:05 | NUR ---
REQUESTED TO HAVE ZOFRAN DRIP OFF AT THIS TIME TO REST HER ARM FROM IV FLUIDS. R ARM SLIGHTLY SWOLLEN FROM PREVIOUS IV SITE.
--- NOTE | 2017-10-21 00:10 | NUR ---
EYES CLOSED. LEFT UNDISTURBED.
--- NOTE | 2017-10-21 02:05 | NUR ---
APPEARS TO BE ASLEEP.
--- NOTE | 2017-10-21 02:10 | NUR ---
EYES CLOSED. LEFT UNDISTURBED.
--- NOTE | 2017-10-21 04:45 | NUR ---
VULCANIZING PRESS OPERATOR HERE TO DRAW AM LAB.
[2017-10-21 05:09] LABS: BASOPHILS 0.1 % (0-2); EOSINOPHILS 2.1 % (0-7); HEMATOCRIT 31.2 % (36.0-48.0); HEMOGLOBIN 9.2 g/dL (12-16); IMMATURE GRANULOCYTES 0.6 % (0-5); LYMPHOCYTES 16.1 % (15-50); MCHC 29.5 g/dL (31.0-37.0); MCV 71.2 fL (80.0-100.0); MEAN PLATELET VOLUME 9.6 fL (7.4-10.4); MONOCYTES 10.8 % (2-11); NEUTROPHILS 70.3 % (40-80); PLATELET COUNT 328 10x3/uL (130-400); RBC 4.38 10x6/uL (4.00-5.40); RDW 22.8 % (11.5-14.5); WBC 7.1 10x3/uL (4.8-10.8)
[2017-10-21 05:14] LABS: INR 0.95 (0.85-1.17); PROTIME 12.3 SECONDS (11.6-15.0)
[2017-10-21 05:27] LABS: ALBUMIN 1.6 g/dL (3.4-5.0); ALKALINE PHOSPHATASE 101 U/L (46-116); ALT (SGPT) 16 U/L (10-68); CALCIUM 8.2 mg/dL (8.5-10.1); CARBON DIOXIDE 28.3 mmol/L (21.0-32.0); CHLORIDE - SERUM 102 mmol/L (98-107); CREATININE - SERUM 0.8 mg/dL (0.6-1.3); POTASSIUM - SERUM 4.2 mmol/L (3.5-5.1); PROTEIN - SERUM 5.3 g/dL (6.4-8.2); SODIUM 135 mmol/L (136-145); UREA NITROGEN 14 mg/dL (7-18); eGFR NON AFRICAN AMERICAN 84 mL/min (90-120)
[2017-10-21 05:36] LABS: CALC OSMOLALITY 280 mosm/kg (275-300); GLUCOSE 287 mg/dL (74-106)
--- NOTE | 2017-10-21 06:26 | NUR ---
SLEPT ON AND OFF DURING THE NIGHT. CONTINUING PLAN OF CARE.
[2017-10-21 07:42] VITALS: BP 150/90
--- NOTE | 2017-10-21 07:42 | NUR ---
RCVD PT FROM Faye GREER, RN. PT ON BACK, HOB 40 DEGREES WITH MEAL TRAY SERVED. PT DENIES RELIEF OF HEADACHE WITH ULTRAM AND RATES PAIN 5/10 STILL. MD HAS BEEN NOTIFIED OF CONSTANT HEADACHE. VSS, HR-RRR, PPP, PT ON TELEMETRY AT THIS TIME. BOWEL SOUNDS ACTIVE X4. 1+ PITTING EDEMA NOTED TO BLE. PT REPORTS VOIDING OK. CONTINUES TO CONSUME GOLYTELY AND WILL RING RN WHEN READY FOR ANOTHER CUP. WILL CONT POC FOR TODAY. PT DENIES FURTHER NEEDS. BED LOW, WHEELS LOCKED, CL IN REACH. SIDE RAILS UP X2.
--- NOTE | 2017-10-21 09:04 | NUR ---
POTASSIUM AND PROTONIX GIVEN PER ORDERS AT THIS TIME. PT DENIES PAIN OR FURTHER NEEDS. WILL CONT TO MONITOR.
--- NOTE | 2017-10-21 09:25 | NUR ---
GOLYTELY, LEMON [place] SODA, AND WARM PACK FOR RT FOREARM PROVIDED AT THIS TIME. PT DENIES FURTHER NEEDS. WILL RETURN WITH THE REST OF MEDS WHEN PHARMACY BRINGS THEM. PT VERBALIZES UNDERSTANDING AND DENIES FURTHER NEEDS.
--- NOTE | 2017-10-21 09:40 | NUR ---
COLONOSCOPY SCHEDULED FOR 10 AM 10/22 PER JANUARY IN SCHEDULING. REPORT CALLED TO DR CALVILLO'S NURSE AT CLINIC AT THIS TIME.
--- NOTE | 2017-10-21 09:58 | NUR ---
VT B-12 INJECTION GIVEN IM IN RT DELTOID, LISINOPRIL GIVEN AND 30 U LANTUS GIVEN IN LLQ PER ORDERS. SEE EMAR. PT JAYME. WELL. DENIES PAIN IN HEAD, BUT RT ARM SORE DUE TO PREVIOUS IV SITE. WARM PACK PROVIDED.
--- NOTE | 2017-10-21 10:25 | NUR ---
2 WARM BLANKETS PROVIDED TO PT'S DAUGHTER PER REQUEST AT THIS TIME. DENIES ANY FURTHER NEEDS.
--- NOTE | 2017-10-21 10:47 | NUR ---
Nutrition Follow Up: Pt is eating 16% meal avg on a clear liquid diet. Noted pt to have colonoscopy 10/22/17. +BM 10/18/17. Wt loss 4#. Labs reviewed - Glucose elevated. Meds noted including Lasix. Rec advancing TIRSO when medically feasible. RD following.
--- NOTE | 2017-10-21 11:42 | NUR ---
BLOOD SUGAR CHECKED-192. WILL RETURN WITH HUMALOG 2 UNITS PER SLIDING SCALE.
--- NOTE | 2017-10-21 11:42 | NUR ---
PT RESTING ON RT SIDE UPON ENTERING ROOM. PT DENIES PAIN OR NEEDS AT THIS TIME. FAMILY IN ROOM FOR SUPPORT.
[2017-10-21 12:00] VITALS: BP 151/92
--- NOTE | 2017-10-21 12:00 | NUR ---
SCHEDULED MEDS GIVEN PER ORDERS AT 1156. SEE EMAR FOR ADMINISTRATION. VSS ASSESSED. PT RATES PAIN 5/10 AT THIS TIME. GOLYTELY PROVIDED. PT DENIES FURTHER NEEDS.
--- NOTE | 2017-10-21 13:18 | NUR ---
ULTRAM GIVEN FOR PAIN RATED 6/10 IN ARM AT THIS TIME. PT DENIES FURTHER NEEDS AT THIS TIME. WILL CONT TO MONITOR.
--- NOTE | 2017-10-21 13:30 | NUR ---
DR MCCLELLAND TO PT ROOM. PER DR MCCLELLAND SHE WILL TRANSFER PT TO L&D AFTER CLINIC (AROUND 1500) TO ASSESS PT AND DO PAP SMEAR.
--- NOTE | 2017-10-21 14:03 | NUR ---
PAIN REASSESSMENT COMPLETE. PT RATES PAIN 5/10 IN FOREARM WITH NO RELIEF. ICE PACK PLACED ON ARM AT THIS TIME. SL IN LT WRIST AREA D/C'D DUE TO ERYTHEMA AND HEAT AT SITE. ATTEMPTED TO RESITE X1 STICK. WILL HAVE ANOTHER RN ATTEMPT.
--- NOTE | 2017-10-21 16:23 | NUR ---
PT RETURNS TO L&D VIA W/C PER Roxana LOPEZ RN WITH REPORT THAT PT FEELS BS IS LOW. FSBS RESULTS 62. PT IS SYMPTOMATIC, COOL AND CLAMMY. APPLE JUICE AND REGULAR SPRITE PROVIDED AT THIS TIME. WILL RECHECK BS IN 30 MINS. PT STATES "I'M ALREADY FEELING A LITTLE BETTER GETTING THE JUICE DOWN."
--- NOTE | 2017-10-21 17:01 | NUR ---
TYLENOL 500MG X1 TAB GIVEN FOR PAIN RATED 6/10 AT THIS TIME, GENERALIZED..FSBS REPEATED WITH RESULTS OF 96. PT REPORTS FEELING BETTER. WARM BLANKET PROVIDED. PT DENIES FURTHER NEEDS.
--- NOTE | 2017-10-21 17:40 | NUR ---
RN OUT OF ROOM AFTER ATTEMPTING TO START IV ACCESS WITH REPORT PT WILL RECEIVE A ML FOR IV ACCESS.
--- NOTE | 2017-10-21 17:46 | NUR ---
PT REPORTS PAIN GONE AT THIS TIME STATING "I THINK THE ICE HELPED SOME." CONSENT FOR COLONOSCOPY EXPLAINED, SIGNED, AND WITNESSED PER THIS RN. PT DENIES FURTHER NEEDS AT THIS TIME.
--- NOTE | 2017-10-21 18:03 | NUR ---
Jame SCHOFIELD RN TO ROOM TO START MIDLINE IV ACCESS.
--- NOTE | 2017-10-21 18:08 | NUR ---
DR CALVILLO TO ROOM TO DISCUSS POC WITH PT. PT REPORT TO DR CALVILLO THAT STOOL IS MUDDY INSTEAD OF CLEAR. V/O RCVD TO PUSH 2 MORE LITERS OF GYLYTELY BEFORE 2 AM. AND TO TEXT HER IF NOT COMPLETED.
--- NOTE | 2017-10-21 18:33 | NUR ---
CUP OF 500ML GOLYTELY PROVIDED TO PT. ADV PT SHE NEEDS TO CONSUME 4 CUPS OF 500 BY MIDNIGHT TONIGHT IN ORDER TO HAVE COLONOSCOPY IN THE MORNING. DIET LEMON [place] SODA PROVIDED. PT DENIES FURTHER NEEDS AT THIS TIME.
--- NOTE | 2017-10-21 19:30 | NUR ---
ASSESSMENT PER FLOW SHEET, VS OBTAINED, MIDLINE TO UPPER LEFT ARM INTACT WITH NO REDNESS OR EDEMA, PT REPORTS FLATUS, STATES "I AM STILL GOING A LITTLE YELLOW WHEN I HAVE A BM", PT INST ON COMPLETING GOLYTELY, PT VERBALIZES UNDERSTANDING, PT INFORMED OF BP, STATES "IT'S PROBABLY BECAUSE I WAS TIGHTENING UP MY ARM, THAT PLACE WHERE THE SL WAS HURTS SO BAD, PLUS DR MARCUS KNOWS ABOUT MY BP, THAT'S WHY HE UPPED MY LISINOPRIL", PT REQUESTED TYLENOL AND ICE PACK FOR HER ARM, INFORMED PT THAT I WILL CHECK TO SEE IF THE TYLENOL WAS DUE
[2017-10-21 19:35] VITALS: BP 157/103
--- NOTE | 2017-10-21 19:54 | NUR ---
PT INFORMED THAT IT WAS NOT TIME FOR THE TYLENOL, OFFERED ULTRAM, PT STATES "YES, I'LL TAKE THAT", ADM ULTRAM PO PER MD ORDERS, SEE EMAR, PT SERVED FRESH H20 AND 500 MLS MORE OF GOLYTELY, ICE PACK PROVIDED, DENIES FURTHER NEEDS, DAUGHTER AT BEDSIDE
--- NOTE | 2017-10-21 20:30 | NUR ---
IRON HUNG IVPB PER MD ORDERS, SEE EMAR, PT DENIES NEEDS AT THIS TIME
--- NOTE | 2017-10-21 21:21 | NUR ---
FSBS OBTAINED, PT REQUESTED AND SERVED CHICKEN BROTH, PT INFORMED THAT I WAS WAITING ON THE KEFLEX FROM THE PHARMACY, PT VERBALIZES UNDERSTANDING, WANTS TO TAKE THE ZANAFLEX RIGHT BEFORE SHE IS TRANSFERRED UPSTAIRS
--- NOTE | 2017-10-21 21:45 | NUR ---
2100 MEDS ADM PER GINNY SANTIZO RN, SEE EMAR
--- NOTE | 2017-10-21 22:00 | NUR ---
REPORT TO JERMAINE CARMONA
--- NOTE | 2017-10-21 23:00 | NUR ---
PT TRANSFERRED VIA WC TO [facility] ROOM 2132, PT TRANSFERRED SELF TO BED, BED IN LOW POSITION, SIDE RAILS X 2, CALL LIGHT IN REACH, KRISTINE RN TO ROOM
--- NOTE | 2017-10-21 23:11 | NUR ---
PT ARRIVED TO FLOOR FROM [facility]OMENS. VSS. BREATHING EVEN AND UNLABORED. PT RECIEVING IRON INFUSION, THEN CAN BE SALINE LOCKED. PT DRINKING LAST 1000 ML OF GOLYTELY FOR UPCOMING COLONOSCOPY TOMORROW. WILL CTM.
[2017-10-22 04:00] VITALS: BP 193/109
--- NOTE | 2017-10-22 04:09 | NUR ---
PT C/O HEADACHE AND HER BLOOD PRESSURE WAS VERY HIGH. GAVE PT PRN TYLENOL AND WILL RECHECK BP.
[2017-10-22 06:01] LABS: BASOPHILS 0.1 % (0-2); EOSINOPHILS 2.2 % (0-7); HEMATOCRIT 31.7 % (36.0-48.0); HEMOGLOBIN 9.5 g/dL (12-16); IMMATURE GRANULOCYTES 0.5 % (0-5); LYMPHOCYTES 19.3 % (15-50); MCH 21.3 pg (26.0-34.0); MCV 71.1 fL (80.0-100.0); MEAN PLATELET VOLUME 9.4 fL (7.4-10.4); MONOCYTES 11.9 % (2-11); PLATELET COUNT 318 10x3/uL (130-400); RBC 4.46 10x6/uL (4.00-5.40); RDW 23.7 % (11.5-14.5); WBC 7.3 10x3/uL (4.8-10.8)
[2017-10-22 06:07] LABS: CALCIUM 8.3 mg/dL (8.5-10.1); CARBON DIOXIDE 29.7 mmol/L (21.0-32.0); CHLORIDE - SERUM 104 mmol/L (98-107); SODIUM 140 mmol/L (136-145)
[2017-10-22 06:08] LABS: CALC OSMOLALITY 276 mosm/kg (275-300); CREATININE - SERUM 0.5 mg/dL (0.6-1.3); GLUCOSE 79 mg/dL (74-106); POTASSIUM - SERUM 3.5 mmol/L (3.5-5.1); UREA NITROGEN 10 mg/dL (7-18); eGFR NON AFRICAN AMERICAN > 90 mL/min (90-120)
[2017-10-22 06:32] LABS: INR 0.93 (0.85-1.17); PROTIME 12.1 SECONDS (11.6-15.0)
--- NOTE | 2017-10-22 07:18 | NUR ---
PT IN BED, WITH EYES CLOSED, AROUSES EASILY TO VOICE. PT UPPER MIDLINE SL. RESP EVEN AND UNLABORED. PT REQUESTING SOME TYLENOL, WILL SEE IF SHE CAN HAVE AND ADMINISTER ORDERD. PT DENIES ANY OTHER NEEDS AT THIS TIME. CALL LIGHT IN REACH, NAD NOTED, WILL CONTINUE PLAN OF CARE.
[2017-10-22 08:32] VITALS: BP 147/87
--- NOTE | 2017-10-22 10:56 | NUR ---
PT TRANSFERED TO GI LAB VIA BED, NAD NOTED.
--- NOTE | 2017-10-22 11:30 | NUR ---
ABLATED 2 POLYPS.
--- NOTE | 2017-10-22 12:42 | NUR ---
BLOOD SUGAR OF 120, NO COVERAGE NEEDED PER S/S. PT'S BP IS STILL HIGH, WILL CALL DR. MARCUS AND GET SOMETHING ORDERED PRN. PT DENIES ANY NEEDS AT THIS TIME CALL LIGHT IN REACH, NAD NOTED.
--- NOTE | 2017-10-22 13:12 | NUR ---
PT CALLED C/O NICOLE AND THINKS HER BP WAS HIGH. CURRENT BP 169/107 PT DID RECIEVE HER LISINOPRIL LATE SHE WAS IN A PROCEDURE WILL GIVE IT MORE TIME TO WORK. PT ALSO C/O HER R.ARM HURTING FROM PREVIOUS INFILTRATION, PROVIDED PT WITH PRN PAIN MEDICATION. SON AT BEDSIDE, PT VOICED THANKS AND DENIES ANY FURTHER NEEDS AT THIS TIME. WILL CPOC.
--- NOTE | 2017-10-22 14:06 | NUR ---
ASSISTED PT INTO SHOWER. PT HAS SMALL ACCIDENT IN BR FLOOR OF GREEN DIARRHEA. NO FURTHER NEEDS AT THIS TIME. WILL CTM.
--- NOTE | 2017-10-22 14:37 | NUR ---
PT SHOWERED AND THEN SAID SHE WAS VERY WEAK AND WAS GOING TO FALL SO SHE LOWERED HERSELF TO FLOOR WITH SONS ASSISTANCE. ROUNDING AND AWARE PT DENIES ANY PAIN OR THAT SHE HIT ANYTHING AND STATES SHE IS FINE BUT C/O NAUSEA REQUESTING PRN ZOFRAN AND WILL BE PROVIDED WITH IT. PT DENIES ANY FURTHER NEEDS AT THIS TIME. WILL CPOC.
--- NOTE | 2017-10-22 19:21 | NUR ---
PT IN BED. PROVIDED DIET [place] AND ICE PER REQUEST. DENIES FURTHER NEEDS AT THIS TIME.
[2017-10-22 20:00] VITALS: BP 130/76
[2017-10-23] VITALS: BP 105/52
--- NOTE | 2017-10-23 02:59 | NUR ---
PT RESTING COMFORTABLY AT THIS TIME, NO NEEDS. CONTINUE TO MONITOR CLOSELY.
[2017-10-23 04:00] VITALS: BP 149/90
--- NOTE | 2017-10-23 05:18 | NUR ---
PT IN BED. COMPLAINS OF PAIN IN LOWER LEFT ARM. UPON INSPECTION SMALL RAISED WHITE WOUND AREA SURROUND BY RED AREA. SPOT IS VERY TENDER AND WARM TO TOUCH. PT STATES IT WAS AN IV THAT INFILTRATED AND HAS NOT HEALED.
--- NOTE | 2017-10-23 07:34 | NUR ---
REPORT RECEIVED ON PATIENT. MORNING ROUNDS MADE. PATIENT LAYING IN BED, EYES CLOSED. CHEST RISES AND FALLS EQUALLY BILAT. NAD NOTED. WILL CONTINUE TO MONITOR. CPOC.
[2017-10-23 07:51] VITALS: BP 164/73
--- NOTE | 2017-10-23 11:07 | NUR ---
NO NEEDS VOICED. CALL LIGHT IN REACH. WILL CONT. PLAN OF CARE.
[2017-10-23 11:12] VITALS: BP 161/79
--- NOTE | 2017-10-23 11:55 | NUR ---
PATIENT SITTING ON SIDE OF BED. C/O PAIN, "6" ON 0-10 SCALE AT PREVIOUS IV SITE ON LEFT ARM. THE AREA IS RAISED, RED & WARM TO THE TOUCH, THERE IS A SMALL WHITE WOUND IN THE MIDDLE OF REDDENED AREA. PATIENT IS VERY CONCERNED. SHE HAS BEEN USING THE BACTROBAN OINTMENT, BUT FEELS SHE MADE NEED SOME IV ANTIBIOTICS. ADVISED I WILL INFORM HER MD. NO OTHER NEEDS AT THIS TIME. CPOC.
[2017-10-23] MEDS ORDERED: ZANAFLEX4 MG PO (15:09)
[2017-10-23] MEDS ORDERED: ZESTRIL40 MG PO (15:10)
[2017-10-23] MEDS ORDERED: LIPITOR10 MG PO (15:10)
[2017-10-23] MEDS ORDERED: CARDIZEM CD120 MG PO (15:10)
[2017-10-23] MEDS ORDERED: LEXAPRO10 MG PO (15:11)
[2017-10-23] MEDS ORDERED: LASIX40 MG PO (15:12)
[2017-10-23] MEDS ORDERED: KLOR-CON 1010 MEQ PO (15:12)
[2017-10-23] MEDS ORDERED: LANTUS INSULIN10 ML SC (15:16)
[2017-10-23] MEDS ORDERED: AUGMENTIN 875-11 TAB PO (15:17)
[2017-10-23] MEDS ORDERED: DIFLUCAN150 MG PO ×2 (15:18→19:16)
[2017-10-23] MEDS ORDERED: GLUCOPHAGE500 MG PO (15:19)
[2017-10-23] MEDS ORDERED: NEURONTIN 300300 MG PO (15:19)
[2017-10-23] MEDS ORDERED: HUMALOG 30100 UNITS/ SC (15:19)
[2017-10-23] MEDS ORDERED: ULTRAM50 MG PO (15:19)
--- NOTE | 2017-10-23 18:26 | NUR ---
CALLED [facility] AND SPOKE WITH ANSWERING SERVICE. TOLD THEM I NEEDED TO REPORT A HIGH BS ON A DR. MARCUS PATIENT. STATES THEY WILL PUT THE PAGE IN.
--- NOTE | 2017-10-23 18:30 | NUR ---
SPOKE WITH DR. DOYLE, INSPECTOR SEMICONDUCTOR WAFER FOR DR. MARCUS. ADVISED BS WAS 491, 12 UNITS OF HUMALOG GIVEN, PATIENT ASYMPTOMATIC. VOICED UNDERSTANDING AND ADVISED TO KEEP IT MONITORED. ALSO, ADVISED DR. MARCUS TOLD PATIENT SHE COULD HAVE DIFULCAN, ORDER NOT IN SYSTEM. PER DR. DOYLE, DIFLUCAN 150MG #3 1 PO QD FOR 3 DAYS. REPEATED BACK AND CONFIRMED.
--- NOTE | 2017-10-23 19:35 | NUR ---
EVENING ROUNDS MADE. PATIENT LAYING IN BED, FAMILY AT BEDSIDE. DENIES ANY NEEDS AT THIS TIME. ADVISED SOMEONE IS WORKING ON HER DISCHARGE PAPERWORK. ALL QUESTIONS ANSWERED. REPORT GIVEN TO COLD ROLL INSPECTOR.
--- NOTE | 2017-10-23 20:27 | NUR ---
MIDLINE REMOVED, TIP INTACT UPON REMOVAL. DRSG APPLIED AFTER HEMOSTASIS ACHIEVED. DISCHARGE TEACHING COMPLETED. SIGNS DISCHARGE INSTRUCTIONS. STATES WILL USE CALL LIGHT TO CALL FOR WC WHEN READY.
--- NOTE | 2017-10-23 20:51 | NUR ---
PT OUT TO PRIVATE AUTOMOBILE VIA WC ACCOMPANIED BY [facility].
== END 2017-10-23 20:52 | disposition home or self-care (01) | DRG 74 ==
LOC: D.ER 05:12 → D.CVICU 06:39 → D.WS 06:39 → D.M2 06:39 → D.WS 10-20 05:15 → D.M2 10-21 22:50
PROVIDERS: Emergency Medicine; Internal Medicine Gastroenterology; Internal Medicine Hematology & Oncology; ADMIT Family Medicine
PROC: 0DB78ZX Excision of Stomach, Pylorus, Via Natural or Artificial Opening Endoscopic, Diagnostic (ICD-10-PCS; 2017-10-20)
PROC: 0DB58ZX Excision of Esophagus, Via Natural or Artificial Opening Endoscopic, Diagnostic (ICD-10-PCS; 2017-10-20)
PROC: 0DB98ZX Excision of Duodenum, Via Natural or Artificial Opening Endoscopic, Diagnostic (ICD-10-PCS; principal; 2017-10-20 10:30)
PROC: 0D5P8ZZ Destruction of Rectum, Via Natural or Artificial Opening Endoscopic (ICD-10-PCS; 2017-10-21)
PROC: 05HC33Z Insertion of Infusion Device into Left Basilic Vein, Percutaneous Approach (ICD-10-PCS; 2017-10-21)
PROC: B54NZZA Ultrasonography of Left Upper Extremity Veins, Guidance (ICD-10-PCS; 2017-10-21)
DX: E11.40 Type 2 diabetes mellitus with diabetic neuropathy, unspecified (principal); L03.114 Cellulitis of left upper limb; L03.113 Cellulitis of right upper limb; E11.21 Type 2 diabetes mellitus with diabetic nephropathy; N92.0 Excessive and frequent menstruation with regular cycle; R10.32 Left lower quadrant pain; I11.0 Hypertensive heart disease with heart failure; I50.9 Heart failure, unspecified; E78.5 Hyperlipidemia, unspecified; F17.200 Nicotine dependence, unspecified, uncomplicated; K21.9 Gastro-esophageal reflux disease without esophagitis; D50.9 Iron deficiency anemia, unspecified; W19.XXXA Unspecified fall, initial encounter; K20.9 Esophagitis, unspecified; K29.00 Acute gastritis without bleeding; K29.80 Duodenitis without bleeding

== ENCOUNTER 2018-01-12 07:00 | Day surgery (SDC) | payer BC ==
[2018-01-11 13:51] LABS: BASOPHILS 0.1 % (0-2); EOSINOPHILS 2.7 % (0-7); HEMATOCRIT 36.1 % (36.0-48.0); IMMATURE GRANULOCYTES 0.3 % (0-5); LYMPHOCYTES 27.4 % (15-50); MCH 26.9 pg (26.0-34.0); MCHC 33.2 g/dL (31.0-37.0); MCV 80.9 fL (80.0-100.0); MONOCYTES 6.7 % (2-11); NEUTROPHILS 62.8 % (40-80); RBC 4.46 10x6/uL (4.00-5.40); RDW 16.1 % (11.5-14.5); WBC 6.7 10x3/uL (4.8-10.8)
[2018-01-11 13:52] LABS: PLATELET COUNT 218 10x3/uL (130-400)
[2018-01-11 14:16] LABS: ANION GAP 9.5 mmol/L (8-16); CALCIUM 8.4 mg/dL (8.5-10.1); CARBON DIOXIDE 28.2 mmol/L (21.0-32.0); POTASSIUM - SERUM 3.7 mmol/L (3.5-5.1)
[~2018-01-12] VITALS: Ht 167.6 cm; Wt 80.7 kg
[2018-01-12] VITALS (7 sets, daily range): BP systolic 95–156; BP diastolic 58–91; Ht 167.6 cm; Wt 80.7 kg
--- NOTE | ~2018-01-12 | OP ---
PATIENT NAME: MELY FRY MEDICAL RECORD: [id number] :79 LOCATION:D.[facility] ADMISSION DATE: SURGEON: HAM GRAJEDA MD DATE OF OPERATION: 01/12/2018 PREOPERATIVE DIAGNOSIS: Cervical intraepithelial neoplasia III. POSTOPERATIVE DIAGNOSIS: Cervical intraepithelial neoplasia III. PROCEDURE: Total laparoscopic hysterectomy with bilateral salpingectomy. SURGEON: Ham Grajeda MD ANESTHESIOLOGIST: Shen Watkins MD ANESTHESIA: General. FINDINGS: Uterus is slightly enlarged. Otherwise, the tubes and ovaries are unremarkable. What was visualized of the abdominal anatomy was also unremarkable. Cervix appears parous without obvious lesion. SPECIMEN REMOVED: Uterus with cervix and bilateral tubes. SPECIMEN DISPOSITION: Pathology. ESTIMATED BLOOD LOSS: Less than or equal to 75 cc. FLUIDS: 1350 cc of normal saline. URINE OUTPUT: 100 of clear urine. COMPLICATIONS: None. DRAINS: Rincon to gravity discontinued in the PACU. INDICATIONS: The patient is a 42-year-old female, noncompliant with annual examination with a recent history of high-grade Pap smear and NICOLLE 3 confirmed by colpo directed biopsy. The patient was counseled and desires definitive treatment. The patient was consented for total laparoscopic hysterectomy and any indicated procedure. DESCRIPTION OF PROCEDURE: After informed consent was assured, the patient was taken to the operating room where anesthetic was obtained and she was placed in [facility]. The patient is now prepped and draped and a speculum introduced in the vagina and uterine manipulator placed. Primary ports now placed in the umbilicus. Accessory ports were placed in right and left lower quadrant. With the patient in Trendelenburg position and well established pneumoperitoneum, the bowel swept free of the pelvis and dissection was begun on the right. Using a gyrus coagulation cutter, the tube was removed from its attachments to the adnexa. This dissection was carried down over the uteroovarian ligament and round ligaments. The anterior leaf of the broad ligament was opened and the bladder flaps developed to the midline. The posterior leaf was opened. The vessels identified on the right side. Then, they are compressed, coagulated, and . Attention was directed to the left side. The left tube was elevated and dissection begun in a similar manner. OPERATIVE REPORT [id number] MELY FRY Again, the dissection was carried out over the uteroovarian and round ligaments. The anterior leaf of the broad ligament is opened all the way to the midline. Posterior leaf is open and the vessels on the left side skeletonized, compressed, coagulated, and . The dissection of the uterus from the attachment to the vaginal vault was begun at the 9 o'clock position. Dissection was carried out from the 9 o'clock to 6 o'clock and then 9 o'clock to 12 o'clock. Attention was now directed to the right side where the dissection was concluded from the 6 o'clock to 12 o'clock positions. Once the uterus is freed, it is pulled into the vaginal vault. Pelvis is inspected. Adequate hemostasis has been established. The legs were positioned and the uterus removed. A weighted speculum was now placed in the vaginal vault and a Magdi retractor used to displace the anterior vault. The stitch was placed through the left uterosacral ligament across the cul-de-sac and through the left uterosacral ligament. This is held to be used later in the procedure. The cuff was now closed in anterior to posterior fashion. Once the cuff has been closed, the aforementioned stitch, the transfix, the uterosacral ligaments is secured in the midline. This holds ligament support and incorporated into the vaginal close. The pneumoperitoneum was now reestablished. A visual inspection reveals adequate hemostasis. Sponge, lap, and needle count was correct times 2 as the pneumoperitoneum was released, trocars were removed, and the skin reapproximated with a subcuticular stitch. Sterile dressing is applied. The patient went to the recovery room in stable condition. TRANSINT:[id number] Voice Confirmation ID: [id number] DOCUMENT ID: [id number] HAM GRAJEDA MD at 1623 CC: [id number] DICTATION DATE: 01/12/18 1238 BUSINESS INTELLIGENCE CONSULTANT: 01/12/18 1306 [facility] 01/12/18 [place] [id number] [place] [address]
[~2018-01-12 07:00] MED LIST changes: +AUGMENTIN 875-11 TAB PO; +CARDIZEM CD120 MG PO; +GABAPENTIN100 MG PO; +LANTUS SOL100 UNIT/1 SC; +LASIX40 MG PO; +LIPITOR10 MG PO; +NEURONTIN 300300 MG PO; +OMEPRAZOLE20 M1 PO; +ULTRAM50 MG PO; +ZESTRIL40 MG PO
[2018-01-13 02:36] VITALS: BP 115/62
== END 2018-01-12 22:15 | disposition home or self-care (01) ==
LOC: D.LD 07:00 → D.OPS 07:00 → D.PAN 09:45 → D.OPS 09:45 → D.LD 13:40 → D.OPS 22:15
PROVIDERS: Anesthesiology; Obstetrics & Gynecology
DX: D06.9 Carcinoma in situ of cervix, unspecified (principal); F17.200 Nicotine dependence, unspecified, uncomplicated; I10 Essential (primary) hypertension; E11.9 Type 2 diabetes mellitus without complications; K21.9 Gastro-esophageal reflux disease without esophagitis; I50.9 Heart failure, unspecified; Z01.812 Encounter for preprocedural laboratory examination

== ENCOUNTER 2018-05-20 19:16 | Emergency (ER) | payer BC ==
[~2018-05-20] VITALS: Ht 167.6 cm; Wt 75.0 kg
[2018-05-20 19:28] VITALS: Ht 167.6 cm; Wt 75.0 kg
[2018-05-20 19:52] LABS: BASOPHILS 0.3 % (0-2); EOSINOPHILS 0.9 % (0-7); HEMATOCRIT 35.7 % (36.0-48.0); HEMOGLOBIN 12.2 g/dL (12-16); IMMATURE GRANULOCYTES 0.3 % (0-5); LYMPHOCYTES 26.7 % (15-50); MCH 27.6 pg (26.0-34.0); MCHC 34.2 g/dL (31.0-37.0); MCV 80.8 fL (80.0-100.0); MEAN PLATELET VOLUME 9.6 fL (7.4-10.4); MONOCYTES 8.2 % (2-11); NEUTROPHILS 63.6 % (40-80); RBC 4.42 10x6/uL (4.00-5.40); RDW 12.8 % (11.5-14.5); WBC 6.5 10x3/uL (4.8-10.8)
[2018-05-20 19:54] LABS: PLATELET COUNT 269 10x3/uL (130-400)
[2018-05-20 20:34] LABS: APTT 25.5 SECONDS (22.8-39.4); INR 0.95 (0.85-1.17); PROTIME 12.3 SECONDS (11.6-15.0)
[2018-05-20 20:34] LABS: ALBUMIN 2.8 g/dL (3.4-5.0); ALKALINE PHOSPHATASE 72 U/L (46-116); ALT (SGPT) 13 U/L (10-68); BILIRUBIN - TOTAL 0.24 mg/dL (0.2-1.3); CALC OSMOLALITY 282 mosm/kg (275-300); CALCIUM 8.8 mg/dL (8.5-10.1); CARBON DIOXIDE 30.3 mmol/L (21.0-32.0); CHLORIDE - SERUM 96 mmol/L (98-107); CREATININE - SERUM 1.8 mg/dL (0.6-1.3); POTASSIUM - SERUM 4.7 mmol/L (3.5-5.1); PROTEIN - SERUM 6.9 g/dL (6.4-8.2); SODIUM 133 mmol/L (136-145); UREA NITROGEN 29 mg/dL (7-18); eGFR NON AFRICAN AMERICAN 33 mL/min (90-120)
[2018-05-20 20:35] LABS: D-DIMER-QUANTITATIVE 1.49 ug/mLFEU (0.20-0.54)
[2018-05-20 20:37] LABS: GLUCOSE 301 mg/dL (74-106)
[2018-05-20 20:44] LABS: CKMB 2.7 U/L (0.0-3.6); CREATINE KINASE 69 UL (21-215); LIPASE 115 U/L (73-393)
[2018-05-20 20:45] LABS: TROPONIN-I < 0.017 ng/mL (0.000-0.060)
[2018-05-20 20:46] LABS: THYROID STIMULATING HORMONE 2.23 uIU/mL (0.36-3.74)
[2018-05-20 21:49] LABS: APPEARANCE HAZY (CLEAR); BILIRUBIN NEGATIVE (NEGATIVE); COLOR YELLOW (YELLOW); GLUCOSE 100 mg/dL (NEGATIVE); KETONE NEGATIVE (NEGATIVE); NITRITE NEGATIVE (NEGATIVE); PROTEIN 2+ mg/dL (NEGATIVE); SPECIFIC GRAVITY 1.015 (1.005-1.020); UROBILINOGEN NORMAL (NORMAL)
[2018-05-21 01:46] VITALS: BP 127/78
== END 2018-05-21 01:46 | disposition home or self-care (01) ==
LOC: D.ER 19:16
PROVIDERS: Family Medicine
DX: R10.9 Unspecified abdominal pain (principal); R53.81 Other malaise; R53.83 Other fatigue; N28.9 Disorder of kidney and ureter, unspecified; R19.7 Diarrhea, unspecified; E11.9 Type 2 diabetes mellitus without complications; I10 Essential (primary) hypertension; F17.200 Nicotine dependence, unspecified, uncomplicated

== ENCOUNTER → 2019-02-27 09:12 | Outpatient (CLI) | payer MEDICAID ==
[2018-05-20 19:28] VITALS: BMI 26.7
== END | disposition home or self-care (01) ==
LOC: D.US 09:12
PROVIDERS: ATTEND Nurse Practitioner Family
DX: I12.9 Hypertensive chronic kidney disease with stage 1 through stage 4 chronic kidney disease, or unspecified chronic kidney disease (principal); N18.3 Chronic kidney disease, stage 3 (moderate); E11.22 Type 2 diabetes mellitus with diabetic chronic kidney disease; D63.1 Anemia in chronic kidney disease; Z68.27 Body mass index [BMI] 27.0-27.9, adult

== ENCOUNTER 2020-06-11 06:29 | Day surgery (SDC) | payer OTHER ==
[~2020-06-11] VITALS: Ht 175.3 cm; Wt 99.7 kg
--- NOTE | ~2020-06-11 | OP ---
PATIENT NAME: MELY FRY MEDICAL RECORD: [id number] :79 LOCATION:D.M2 D.2100 ADMISSION DATE: SURGEON: KONG RODGERS MD DATE OF OPERATION: 06/11/2020 PREOPERATIVE DIAGNOSES: 1. Chronic kidney disease. 2. Hypertension. 3. Diabetes mellitus. POSTOPERATIVE DIAGNOSES: 1. Chronic kidney disease. 2. Hypertension. 3. Diabetes mellitus. PROCEDURE: 1. Laparoscopic peritoneal dialysis catheter placement. 2. Left upper extremity AV graft placement. SURGEON: Kong Rodgers MD REPORT OF PROCEDURE: The patient's abdomen was prepped and draped in sterile fashion. A Veress needle was inserted in the left upper quadrant and the abdomen was insufflated. A 5-mm Visiport trocar was then inserted in the abdomen, I could see the Veress needle and there was no sign of any injury to bowel or surrounding structures. The Veress needle was then removed. Another 5-mm trocar was placed in the midline above the umbilicus. We then placed a trocar in the right lower quadrant, this trocar went through the subcutaneous tissues through the muscle and went right underneath the fascia and peritoneum of the rectus muscles until it penetrated the midline. I then placed a grasper through this trocar and removed it and was able to pull the pigtail catheter down through this opening and placed the pigtail end of the patient's pelvis. The 2 cuffs were noted to be in perfect position at the conclusion of this portion of the case. I then placed a 5-0 Monocryl on the skin incision and sutured the catheter into place with a 4-0 nylon. We irrigated out the wound with heparinized solution and everything flowed nicely. The ports and insufflation were then removed. The skin incisions were closed with subcutaneous 5-0 Monocryl and dressed appropriately. We then prepped and draped the patient's left arm and axilla. Using ultrasound guidance, I could see the patient's left axillary vein and artery coming down on to the arm. A longitudinal incision was made overlying these, and using electrocautery, we dissected down to the vessels. The patient had a very large vein present. The vein was dissected free and a vessel loop was placed proximally and distally on it just before large bifurcation. The patient's artery was then dissected free and we were able to place vessel loops proximally and distally. The artery itself was not very large in caliber, but did have good flow. The patient was given 5000 units of heparin IV. The 4-7 tapered heparinized graft was then tunneled under the skin of the upper arm and looped back to the wound using a beveled tip. The arterial anastomosis was performed first. We made a small opening in the arteriotomy and flushed it with heparinized saline proximally and distally. We then performed an end-to-side anastomosis with 6-0 Prolene. At the conclusion of this, we had good flow through the vessel and the graft. We then clamped off the graft and cut the venous end of the graft with a beveled tip and again made a venotomy with an 11 blade and opened this up further with Kincaid. We flushed it proximally and distally with heparinized saline and then OPERATIVE REPORT [id number] MELY FRY performed an end-to-side anastomosis with running 6-0 Prolene. CONCLUSION: We had good flow through the vessel and we could feel a palpable thrill present at the proximal aspect of the graft. There was no sign of any active bleeding at the conclusion of the case. A 10-Romansh Karlo drain was then inserted and placed in the area overlying the graft anastomoses and sutured down with 4-0 nylon. We reapproximated the subcutaneous tissues with interrupted 3-0 Vicryls and the skin incisions were closed with subcutaneous 5-0 Monocryl. COMPLICATIONS: None. CONDITION: Stable. ANESTHESIA: General endotracheal. BLOOD LOSS: 100 mL. TRANSINT:[id number] Voice Confirmation ID: [id number] DOCUMENT ID: [id number] KONG RODGERS MD CC: NANCY NICHOLS MD [id number] DICTATION DATE: 06/11/20 1239 SASH REPAIRER: 06/11/202055 [facility] [address] [place] [address]
[~2020-06-11 06:29] MED LIST changes: +BASAGLAR K100 UNIT/1 SC; +CLEOCIN HCL300 MG PO; +CYMBALTA60 MG PO; +GABAPENTIN300 MG PO; +LASIX80 MG PO; +LISINOPRIL20 MG PO; +METOLAZONE2.5 MG PO; +METOPROLOL TART50 MG PO; +NORVASC5 MG PO; +PAMELOR10 MG PO; +SODIUM BICARBO650 MG PO; +ZOFRAN4 MG PO
[2020-06-11 07:08] LABS: BASOPHILS 0.2 % (0-2); EOSINOPHILS 4.9 % (0-7); HEMATOCRIT 25.2 % (36.0-48.0); HEMOGLOBIN 8.2 g/dL (12-16); IMMATURE GRANULOCYTES 0.2 % (0-5); LYMPHOCYTES 22.4 % (15-50); MCH 27.4 pg (26.0-34.0); MCHC 32.5 g/dL (31.0-37.0); MCV 84.3 fL (80.0-100.0); MEAN PLATELET VOLUME 8.8 fL (7.4-10.4); MONOCYTES 8.2 % (2-11); NEUTROPHILS 64.1 % (40-80); PLATELET COUNT 222 10x3/uL (130-400); RBC 2.99 10x6/uL (4.00-5.40); RDW 13.6 % (11.5-14.5); WBC 5.1 10x3/uL (4.8-10.8)
[2020-06-11 07:34] LABS: ANION GAP 16.1 mmol/L (8-16); CARBON DIOXIDE 24.7 mmol/L (21.0-32.0); CREATININE - SERUM 6.3 mg/dL (0.6-1.3); POTASSIUM - SERUM 4.8 mmol/L (3.5-5.1)
[2020-06-11 07:56] LABS: CALCIUM 6.5 mg/dL (8.5-10.1)
--- NOTE | 2020-06-11 13:18 | NUR ---
1315 NORCO 10MG PO GIVEN FOR PAIN 7/10 IN LEFT ARM. LEFT ARM STRAIGHT. SPOUSE AT SIDE.
--- NOTE | 2020-06-11 15:53 | NUR ---
1550 REPORT PHONED TO [facility] TO 2100 BY WAYNE
[2020-06-11 17:37] VITALS: BP 133/71
--- NOTE | 2020-06-11 18:51 | NUR ---
PT ARRIVED TO FLOOR WITH HOANG, PT ALERT AND ORIENTED C/O SLIGHT DISCOMFORT IN LEFT ARM FROM AV GRAFT PROCEDURE. PT HAS IV IN RIGHT HAND AND PD IN ABDOMEM. PT ABLE TO AMBULATE TO BATHROOM WITH MINIMAL ASSISTANCE. CALL LIGHT WITHIN REACH AND PERSONAL ITEMS WITHIN REACH. PT IS HUNGRY WILL NOTIFY DIETARY TO SEND UP TRAY FOR PT.
--- NOTE | 2020-06-11 19:00 | NUR ---
REPORT RECEIVED, WILL CONTINUE POC. PATIENT IS AAXO4, SITTING UP IN BED. AT BEDSIDE. NO S/S OF DISTRESS OBSERVED, RR EVEN AND UNLABORED ON ROOM AIR. PIV TO RT HAND, PATENT, SL. PATIENT DENIES NEEDS AT THIS TIME. CL IN REACH, BED LOCKED AND LOWERED. WILL CTM.
[2020-06-11 21:41] VITALS: BP 136/76
[2020-06-11 22:33] VITALS: Ht 175.3 cm; Wt 99.7 kg
--- NOTE | 2020-06-11 23:26 | NUR ---
PATIENT C/O OF NOT BEING ABLE TO URINATE MUCH AND FEELING "FULL". POST VOID BLADDER SCAN SHOWED 999ML+ JAYLA HART APN.
[2020-06-12] VITALS: BP 150/80
--- NOTE | 2020-06-12 00:12 | NUR ---
IN AND OUT CATH PERFORMED WITH 15F CATHETER USING STERILE TECHNIQUE. 1200ML CLEAR YELLOW URINE DRAINED. BLADDER IS NOT LONGER PALPABLE.
[2020-06-12 04:00] VITALS: BP 139/79
--- NOTE | 2020-06-12 05:08 | NUR ---
PATIENT C/O PAIN AND REQUESTED MORPHINE. PATIENT PULLED OUT IV BY ACCIDENT DURING THE NIGHT. NEW 20G IV STARTED TO RT FA X3 ATTEMPTS. GOOD BLOOD RETURN, FLUSHED WITH EASE. MORPHINE ADMINISTERED PER ORDER.
[2020-06-12] MEDS ORDERED: SENNA LAXATIVE8.6 MG PO (08:26)
--- NOTE | 2020-06-12 08:30 | NUR ---
RIGHT FA 20G IV INFILTRATED. DC'D WITH CATH INTACT.
--- NOTE | 2020-06-12 08:35 | NUR ---
BLADDER SCAN DONE AND PT HAD OVER 1000ML. 16 SPANISH WORRELL CATHETER PLACED USING STERILE TECHNIQUE 350 INSTANT RETURNED CLAMPED CATHETER. PT HAVING BLADDER SPASMS. URINE IS LIGHT YELLOW. WILL CONTINUE TO MONITOR.
--- NOTE | 2020-06-12 09:28 | NUR ---
PT STATES SHE IS NO LONGER HAVING BLADDER SPASMS. UNCLAMPED FOELY CATH. WILL CONTINUE TO MONITOR.
[2020-06-12 11:25] VITALS: BP 144/76
--- NOTE | 2020-06-12 11:59 | NUR ---
PENNY NOT IN ROOM OR CASSETTE CALLED MELIZA NARANJO AND SPOKE WITH MAX SHE STATES SHE WILL BRING IT TO ME. I VERBALIZED UNDESTANDING.
--- NOTE | 2020-06-12 12:02 | NUR ---
PT WANTING CHANELLE CHANGED TO Q4H INSTEAD OF Q6H SINCE SHE CAN'T GET MORPHINE FROM NOT HAVING IV ACCESS. CALLED DR. SWEET OFFICE AND THEY STATED THEY WILL HAVE HIS NURSE OR HIM CALL ME BACK. I VERBALIZED UNDERSTANDING.
[2020-06-12] MEDS ORDERED: HYDROCODON-ACE1 EA10 PO (12:19)
--- NOTE | 2020-06-12 12:55 | NUR ---
WRITTEN SCRIPT OF NORCO 10 MG # 20 GIVEN TO PATIENT WITH NO REFILLS. COPY OF THIS TO CHART.
--- NOTE | 2020-06-12 13:39 | NUR ---
LEFT ARM STEF DRAINED REMOVED. PT TOLERATED WELL. DISCHARGE TEACHING DONE WITH PT AND DRESSIGN AND WORRELL CATHETER CARE AND TO REMOVE CATHETER TOMORROW AT 0700 AND IF SHE IS UNABLE TU URINATE AFTER [address] RODGERS'S OFFICE. DEMONSTRATION GIVEN ON HOW TO REMOVE WORRELL CATHETER AND 10CC SYRINGE GIVEN TO PT. PT VERBALIZED UNDERSTANDING. PT AHS NO IV AND NO TELEMETRY.
--- NOTE | 2020-06-12 14:34 | NUR ---
DISCHARGE INSTRUCTIONS GIVEN AND EXPLAINED TO PT. PT VERBALIZED UNDERSTANIDNG. NORCO SCRIPT GIVEN TO PT. PT SIGNED CHART COPY.
--- NOTE | 2020-06-12 15:01 | NUR ---
PT TAKEN OUT VIA WC BY INFORMATION SECURITY SYSTEMS INSTRUCTOR WITH ALL BELONGINGS AND LEFT WITH SPOUSE IN THEIR PERSONAL VEHICLE.
== END 2020-06-12 15:07 | disposition home or self-care (01) ==
LOC: D.OPS 06:29 → D.M2 15:54 → D.OPS 06-12 15:07
PROVIDERS: Anesthesiology; ATTEND Surgery
DX: E11.22 Type 2 diabetes mellitus with diabetic chronic kidney disease (principal); I12.9 Hypertensive chronic kidney disease with stage 1 through stage 4 chronic kidney disease, or unspecified chronic kidney disease; N18.9 Chronic kidney disease, unspecified

== ENCOUNTER 2020-07-30 19:11 | Inpatient (IN) | payer OTHER ==
[~2020-07-30] VITALS: Ht 175.3 cm; Wt 90.7 kg
--- NOTE | ~2020-07-30 | HEMODYNAMI ---
PATIENT:MELY FRY MEDICAL RECORD: [id number] : 79 LOCATION:[address] ADMISSION DATE: 07/31/20 Generatedon:08/13/20209:40 Patient name: MELY FRY Patient #: [id number] SSN: : 1975 Date of study: 08/13/2020 Page: Of Hemodynamic Procedure Report Patient Data Patient Demographics Procedure consent was obtained First Name: MELY Gender: Female Last Name: LISANDRA : 1975 Patient #: [id number] Age: 45 year(s) Race: Unknown Additional ID: [id number] Contact details Address: [address] [place] [address] State: [place] City: [place] Zip code: [address] Past Medical History Allergies: No known allergies Admission Admission Data Admission Date: 07/31/2020 Admission Time: 17:05 Room #: 2104 Height (in.): 69 BSA: 2.06 (m2) Height (cm.): 175.26 BMI: 29.39 (kg/m2) Weight (lbs.): 199 Weight (kg.): 90.26 Procedure Procedure Types Cath Procedure Peripheral Cath Diagnostic Procedure Datapower Consultant Peripheral Procedures Miscellaneous Cathetergram Procedure Description Procedure Date Procedure Date: 08/13/2020 Procedure Start Time: 9:21 Procedure Staff Name Function Zelda Bobby RT Fusion Analyst Koby Spann RT Scrub Wojciech Swanson MD Performing Physician Beti Ho RN Nurse Vilma MAN RN Nurse Procedure Data Cath Procedure Fluoroscopy Diagnostic fluoroscopy Total fluoroscopy Time: 0.6 time: 0.6 min min Diagnostic fluoroscopy Total fluoroscopy dose: 44 dose: 44 mGy mGy Contrast Material Contrast Material Type Amount (ml) Isovue 300 20 Procedure Medications Medication Administration Route Dosage Heparin Flush Bag added to field 1 bags (1000units/500ml NS) Lidocaine 1% added to field 20 Hemodynamics Rest BSA: 2.06 (m2) O2 Consumption: Estimated: 222.26 (ml/min) O2 Consumption indexed : Estimated:107.89 (ml/min/m) Heart Rate: 90 (bpm) Snapshots Pre Cath Intra NCS Post Cath Vital Signs Time Heart Resp SPO2 etCO2 NIBP Rhythm Pain Sedation Rate (ipm) (%) (mmHg) (mmHg) Status Level (bpm) 9:00:59 89 12 85 0 115/73(85) NSR 0 (11) 10(A) , No pain 9:05:07 89 10 100 37 107/71(83) NSR 0 (11) 10(A) , No pain 9:09:14 88 100 37.8 108/64(86) NSR 0 (11) 10(A) , No pain 9:13:20 86 12 100 37 106/66(77) NSR 0 (11) 10(A) , No pain 9:17:24 87 10 98 37 104/63(83) NSR 0 (11) 10(A) , No pain 9:21:30 86 12 98 37 103/64(78) NSR 0 (11) 10(A) , No pain 9:25:34 86 16 98 27.9 107/67(82) NSR 0 (11) 10(A) , No pain 9:29:39 86 4 93 34.7 99/64(76) NSR 0 (11) 10(A) , No pain 9:33:39 0 No Cuff NSR 0 (11) 10(A) , No pain 9:37:39 0 No Cuff NSR 0 (11) 10(A) , No pain Medications Time Medication Route Dose Verified Delivered Reason Notes Effec tiveness by by 8:54:50 Heparin Flush added 1 Wojciech Jeffrey for local Bag to bags Kiki Swanson MD anesthetic (1000units/500ml field APARICIO NS) 8:55:04 Lidocaine 1% added 20ml Wojciech Jeffrey for local to vial Kiki Swanson MD anesthetic field APARICIO Procedure Log Time Note 8:39:20 Patient Height : 69 inches 8:39:27 Patient Weight : 199 lbs 8:39:54 Time tracking: Regular hours (M-F 7:00 - 5:00) 8:54:09 Plan of Care:Hemodynamics will remain stable., Cardiac rhythm will remain stable., Comfort level will be maintained., Respiratory function will remain adequate., Patient/ family verbilizes understanding of procedure., Procedure tolerated without complication., Recovers from procedure without complications.. 8:54:19 Patient received from Med II to IR Alert and oriented. Tansferred to table in Supine position. 8:54:24 Signed procedure consent form obtained from patient. 8:54:33 H&P Date Dictated: 08/13/2020 Within 30 days and on chart.. 8:54:35 Pre-procedure instructions explained to patient. 8:54:36 Pre-op teaching completed and patient verbalized understanding. 8:54:39 Family unavailable. 8:54:42 Patient NPO since Midnight. 8:54:50 Heparin Flush Bag (1000units/500ml NS) 1 bags added to field was administered by Wojciech Swanson MD; for local anesthetic; Verbal order read back and verified. 8:54:55 Patient allergic to No known allergies 8:55:04 Lidocaine 1% 20ml vial added to field was administered by Wojciech Swanson MD; for local anesthetic; Verbal order read back and verified. 8:55:05 Is the patient allergic to Iodine/contrast media? No. 8:55:18 Patient diabetic? Yes. 8:55:20 If diabetic: On Metformin? No 8:55:25 8:55:26 ----Pre-sedation anethsthesia assessment.---- 8:55:30 Previous problem with sedation/anesthesia? No ? 8:55:33 Snore? Yes 8:55:35 Sleep apnea? No 8:55:37 Deviated septum? No 8:55:40 Opens mouth fully? Yes 8:55:41 Sticks out tongue? Yes 8:55:47 Airway obstruction? No ? 8:55:51 Dentures? No ? 8:56:10 Right abdomen area was prepped with chlora-prep and draped in sterile fashion 8:56:16 8:56:20 Use device set IR Diagnostic 8:56:24 Sterile Angiographic Pack opened to sterile field. 8:56:25 Bag Decanter () opened to sterile field. 9:00:00 Vital chart was started 9:01:25 ECG and BP/O2 sat monitors applied to patient. 9:01:26 Baseline sample Acquired. 9:01:30 Full Disclosure recording started 9::31 9:20:22 Physician arrived 9:20:23 --------ALL STOP TIME OUT------ 9:20:24 Final Timeout: patient, procedure, and site verified with staff and physician. All members of the team are in agreement. 9:20:30 Fire Safety Assessment: A--An alcohol-based skin anteseptic being used preoperatively., C--Open oxygen or nitrous oxide is being used. 9:21:04 Procedure started. 9:22:20 GLIDE WIRE ANGLE 180cm ([id number]) opened to sterile field. 9:25:43 pd catheter flushed and ready to use 9:25:48 Procedure ended.(Physican Out) 9:37:07 Fluoroscopy time 00.60 minutes. 9:37:11 Fluoroscopy dose: 44 mGy 9:37:11 Flurop Dose total: 44 9:37:17 Contrast amount:Isovue 300 20ml. 9:37:19 Procedure and supply charges have been captured, reviewed, submitted and are correct. 9:38:19 Vital chart was stopped 9:38:24 Full Disclosure recording stopped Device Usage Item Name Manufacture Quantity Catalog Hospital Part Current Minimal Lot# / Number Charge Number Stock Stock Serial# Code Sterile [place] 1 [id number] 5 Angiographic Health Pack Bag Decanter Microtek 1 [id number] 5 (2002S) Medical Inc. GLIDE WIRE Terumo 1 [id number] 5 ANGLE 180cm ([id number]) Signature Audit [place] Stage Time Signature Unsigned Intra-Procedure 08/13/2020 Zelda Bobby RT(R) 9:38:15 AM RT(R) 08/13/2020 9:39:26 AM Intra-Procedure 08/13/2020 Zelda Bobby 9:40:02 AM RT(R) [facility] [address] [place] [address]
--- NOTE | ~2020-07-30 | OP ---
PATIENT NAME: MELY FRY MEDICAL RECORD: [id number] :[birth year] LOCATION:[address] ADMISSION DATE:07/31/20 SURGEON: MAX RODGERS MD DATE OF OPERATION: 08/16/2020 PREOPERATIVE DIAGNOSES: 1. End-stage renal disease. 2. Clotted left upper extremity arteriovenous graft. 3. Hypertension. 4. Diabetes mellitus. POSTOPERATIVE DIAGNOSES: 1. End-stage renal disease. 2. Clotted left upper extremity arteriovenous graft. 3. Hypertension. 4. Diabetes mellitus. PROCEDURES: 1. Right IJ 19 cm HemoSplit catheter placement. 2. Mechanical thrombectomy of left upper extremity AV graft. 3. Left upper extremity fistulogram. 4. Fluoroscopic interpretation. SURGEON: Max Rodgers MD REPORT OF PROCEDURE: The patient's right neck was prepped and draped in sterile fashion. Using ultrasound guidance, a needle was used to cannulate the right internal jugular vein. The guidewire was advanced with ease. Fluoro was used to note that the wire was in good position in the venous system. A skin incision was made on the right superolateral chest and a subcutaneous tunneling of the catheter was performed between this incision and the wire exit site. The multiple dilators were placed over the wire followed by the dilator trocar device. The wire and dilator were removed and the catheter tips were advanced through the trocar. The trocar was then pulled back until it rested in good position. The catheter aspirated nonpulsatile dark blood and flushed easily with heparinized saline. This was sutured into place with 3-0 Prolenes and the skin incisions were closed with subcutaneous 5-0 Monocryl. The left arm was then prepped and draped in sterile fashion. A previous skin incision in the left superior medial arm, near the axilla was reopened. I was able to dissect through the subcutaneous tissues to the arterial and venous anastomoses of the loop axillary to axillary AV graft. These were noticeably clotted off. A skin incision was made on the distal aspect of the upper arm, near the antecubital space at the most distal aspect of the AV graft. I was able to elevate this portion of the graft and made a transverse incision through it and was able to run a 4 and 5 Oren catheter proximally and distally and removed a large portion of clot. We then had some brisk blood flow present. I was able to oversew the graftotomy using running 6-0 Prolene. I then ran the Oren one more time and got a small portion of the clot. We then inserted a 25 butterfly needle into the graft and performed a fistulogram. There was very slow flow through the vessel and there was some tightening to the arterial end of the AV graft. This has been banded at a previous surgery because of steal syndrome. I went ahead and took these 2 sutures off and using the Oren balloon I dilated this portion of the anastomosis. The patient had some continued clot near the graftotomy. I reopened this and was able to remove some very fresh clot and after performing this we had good brisk flow all the way through the vessel and OPERATIVE REPORT [id number] MELY FRY I could actually feel a thrill present in the axillary vein. The graftotomy was then tied down tightly and we had no evidence of any extravasation or blood near the anastomotic site. The wounds were irrigated out with normal saline. The subcutaneous tissues were reapproximated with interrupted 3-0 Vicryl and the skin was closed with running subcutaneous 5-0 Monocryl. COMPLICATIONS: None. CONDITION: Stable. ANESTHESIA: General endotracheal and local. BLOOD LOSS: 200 mL. INTRAOPERATIVE MEDICATIONS: 5000 units of heparin IV. TRANSINT:[id number] Voice Confirmation ID: [id number] DOCUMENT ID: [id number] MAX RODGERS MD CC: [id number] DICTATION DATE: 08/16/201836 OPERATIONS MANAGER ASSISTANT: 08/17/20214 ADM IN [facility] [address] [place] [address]
--- NOTE | ~2020-07-30 | HEMODYNAMI ---
PATIENT:MELY FRY MEDICAL RECORD: [id number] : 79 LOCATION:[address] ADMISSION DATE: 07/31/20 Generatedon:08/14/202012:33 Patient name: MELY FRY Patient #: [id number] SSN: : 1975 Date of study: 08/14/2020 Page: Of Hemodynamic Procedure Report Patient Data Patient Demographics Procedure consent was obtained First Name: MELY Gender: Female Last Name: LISANDRA : 1975 Patient #: [id number] Age: 45 year(s) Race: Unknown Additional ID: [id number] Contact details Address: [address] [place] [address] State: [place] City: [place] Zip code: [address] Past Medical History Allergies: No known allergies Admission Admission Data Admission Date: 07/31/2020 Admission Time: 17:05 Room #: 2104 Height (in.): 69 BSA: 2.06 (m2) Height (cm.): 175.26 BMI: 29.39 (kg/m2) Weight (lbs.): 199 Weight (kg.): 90.26 Procedure Procedure Types Cath Procedure Peripheral Cath Diagnostic Procedure Fistula Fistulagram Single Access Procedure Description Procedure Date Procedure Date: 08/14/2020 Procedure Start Time: 11:41 Procedure Staff Name Function Nima Stevens MD Performing Physician Koby Spann RT Monitor Dayana Miguel RT Scrub Beti Ho RN Nurse Procedure Data Cath Procedure Fluoroscopy Diagnostic fluoroscopy Total fluoroscopy Time: 4.3 time: 4.3 min min Diagnostic fluoroscopy Total fluoroscopy dose: 88 dose: 88 mGy mGy Contrast Material Contrast Material Type Amount (ml) Isovue 300 80 Estimated blood loss: 0 ml Procedure Medications Medication Administration Route Dosage Heparin Flush Bag added to field 2 bags (1000units/500ml NS) Lidocaine 1% added to field 20 Versed I.V. 1 mg Fentanyl I.V. 50 mcg Versed I.V. 1 mg Fentanyl I.V. 50 mcg Zofran I.V. 4 mg Hydralizine I.V. 10 mg Hemodynamics Rest BSA: 2.06 (m2) O2 Consumption: Estimated: 227.25 (ml/min) O2 Consumption indexed : Estimated:110.32 (ml/min/m) Heart Rate: 96 (bpm) Snapshots Pre Cath Intra NCS Post Cath Vital Signs Time Heart Resp SPO2 etCO2 NIBP (mmHg) Rhythm Pain Sedation Rate (ipm) (%) (mmHg) Status Level (bpm) 11:25:03 96 9 84 33.8 159/80(109) NSR 0 (11) 10(A) , No pain 11:29:18 96 18 100 27 158/83(125) NSR 0 (11) 10(A) , No pain 11:33:32 96 3 99 28.6 159/81(119) NSR 0 (11) 10(A) , No pain 11:37:49 96 0 94 36 163/80(105) NSR 0 (11) 10(A) , No pain 11:42:16 96 14 100 36 134/69(111) NSR 0 (11) 9(A) , No pain 11:46:30 96 6 100 24 132/70(100) NSR 0 (11) 9(A) , No pain 11:50:48 94 16 96 27 144/70(106) NSR 0 (11) 8(A) , No pain 11:55:00 94 18 98 30 134/74(105) NSR 0 (11) 8(A) , No pain 11:59:20 96 19 99 33 153/74(114) NSR 0 (11) 8(A) , No pain 12:03:44 122 21 88 27.7 173/87(129) NSR 0 (11) 8(A) , No pain 12:08:15 112 18 85 29.2 193/94(137) NSR 0 (11) 8(A) , No pain 12:12:53 116 27 95 31.5 202/100(138) NSR 0 (11) 8(A) , No pain 12:17:36 120 32 66 24.7 213/99(135) NSR 0 (11) 8(A) , No pain 12:22:23 122 33 67 21 226/101(149) NSR 0 (11) 8(A) , No pain 12:26:59 124 21 90 26.2 211/99(151) NSR 0 (11) 8(A) , No pain 12:31:46 21 18.8 220/95(151) NSR 0 (11) 8(A) , No pain Medications Time Medication Route Dose Verified Delivered Reason Notes Ef fectiveness by by 11:34:54 Heparin Flush added 2 Nima Herring used for Bag to bags Stevens Stevens procedure (1000units/500ml field MD APARICIO NS) 11:35:05 Lidocaine 1% added 20ml Nima Herring for local to vial Stevens Stevens anesthetic field MD APARICIO 11:47:54 Versed I.V. 1 mg Nima Bang for sedation Rodney Ho RN, MD 11:48:08 Fentanyl I.V. 50 Nima Bang for sedation mcg Rodney Ho RN, MD 12:01:08 Versed I.V. 1 mg Nima Bang for sedation Rodney Ho RN, MD 12:01:19 Fentanyl I.V. 50 Nima Bang for sedation mcg Rodney Ho RN, MD 12:07:44 Zofran I.V. 4 mg Nima Bang for nausea Rodney Ho RN, MD 12:22:20 Hydralizine I.V. 10 mg Nima Bang for Rodney Ho RN hypertension Procedure Log Time Note 10:49:45 Patient Height : 69 inches 10:49:45 Patient Weight : 199 lbs 10:56:13 Procedure Status Urgent Heart Cath (IP). 10:56:18 Beti Ho RN sent for patient. Start room use. 10:56:21 Time tracking: Regular hours (M-F 7:00 - 5:00) 10:56:33 Plan of Care:Hemodynamics will remain stable., Cardiac rhythm will remain stable., Comfort level will be maintained., Respiratory function will remain adequate., Patient/ family verbilizes understanding of procedure., Procedure tolerated without complication., Recovers from procedure without complications.. 11:05:26 Patient received from Med II to IR Alert and oriented. Tansferred to table in Supine position. 11:05:28 Signed procedure consent form obtained from patient. 11:05:29 Correct patient and procedure confirmed by team. 11:05:32 - 11:05:41 H&P Date Dictated: 08/14/2020 Within 30 days and on chart.. 11:05:43 Pre-procedure instructions explained to patient. 11::43 Pre-op teaching completed and patient verbalized understanding. 11:05:49 Patient NPO since Midnight. 11:06:01 no allergies 11:06:57 Is patient on blood thinner?No 11:06:59 Patient diabetic? Yes. 11:07:07 If diabetic: On Metformin? No 11:07:09 - 11:07:10 ----Pre-sedation anethsthesia assessment.---- 11:07:13 Previous problem with sedation/anesthesia? No ? 11:07:34 Snore? Yes 11:07:36 Sleep apnea? No 11:07:42 Deviated septum? No 11:08:13 Opens mouth fully? Yes 11:08:15 Sticks out tongue? Yes 11:08:20 Airway obstruction? No ? 11:08:28 Dentures? No ? 11:08:37 IV patent on arrival in right forearm with 0.9% NaCl at [facility]. 11:08:41 Alarms reviewed by Roberta NSusana 11:08:42 Alarms reviewed by RSusana NSusana 11:08:43 Sharps counted by scrub and verified by RSusanaNSusana 11:08:53 Left Arm area was prepped with chlora-prep and draped in sterile fashio n 11:23:57 ECG and BP/O2 sat monitors applied to patient. 11:23:57 Vital chart was started 11:34:54 Heparin Flush Bag (1000units/500ml NS) 2 bags added to field was administered by Nima Stevens MD; used for procedure; Verbal order read back and verified. 11:35:05 Lidocaine 1% 20ml vial added to field was administered by Nima Stevens MD; for local anesthetic; Verbal order read back and verified. 11:37:54 Baseline sample Acquired. 11:38:43 Use device set IR Diagnostic 11:38:45 Bag Decanter (2001S) opened to sterile field. 11:38:45 Sterile Angiographic Pack opened to sterile field. 11:38:46 Tegaderm 4 x 4 (1626W) opened to sterile field. 11:39:19 5) <15 or on dialysis Very severe, or end stage kidney failure. 11:39:53 Maximum allowable contrast dose (3.7 X eGFR X 0.75)14 ml. 11:40:10 DOUBLE ENDED GUIEDWIRE DOC 145CM (G05784) opened to sterile field. 11:40:11 DILATOR, VESSEL 4/20 opened to sterile field. 11:40:11 PERCUTANEOUS ENTRY 19GA needle opened to sterile field. 11:40:56 Physician arrived 11:40:56 --------ALL STOP TIME OUT------ 11:40:57 Final Timeout: patient, procedure, and site verified with staff and physician. All members of the team are in agreement. 11:41:00 Left Arm site verified by team. 11:41:04 Fire Safety Assessment: A--An alcohol-based skin anteseptic being used preoperatively., C--Open oxygen or nitrous oxide is being used. 11:41:08 Sedation plan: IV Moderate Sedation Medication:Versed, Fentanyl 11:41:25 Procedure started. 11:41:25 Full Disclosure recording started 11:41:30 Local anesthetic to left arm with Lidocaine 1% by Nima Stevens MD.INITIAL ACCESS ONLY 11:47:54 Versed 1 mg I.V. was administered by Beti Ho RN; for sedation; Verbal order read back and verified. 11:48:08 Fentanyl 50 mcg I.V. was administered by Beti Ho RN; for sedation ; Verbal order read back and verified. 11:58:55 St Jacob 6FR 5cm sheath opened to sterile field. 12:01:01 Arrow 6Fr TREROTOLA thrombectomy opened to sterile field. 12:01:08 Versed 1 mg I.V. was administered by Beti Ho RN; for sedation; Verbal order read back and verified. 12:01:19 Fentanyl 50 mcg I.V. was administered by Beti Ho RN; for sedation ; Verbal order read back and verified. 12:07:44 Zofran 4 mg I.V. was administered by Beti Ho RN; for nausea; Verbal order read back and verified. 12:08:57 INFLATOR BasixTOUCH (CK6099) opened to sterile field. 12:08:58 ROSSI 260 wire ([id number]) opened to sterile field. 12:08:58 St Jacob 6FR 5cm sheath opened to sterile field. 12::43 Inflate balloon Inflation number: 1 A Evercross 7 x 2 x 135 Balloon ([id number]) was prepped and advanced across the Undefined1 , then inflated to 0 CATIE for 0:00 (min:sec) . 12:22:20 Hydralizine 10 mg I.V. was administered by Beti Ho RN; for hypertension; Verbal order read back and verified. 12:24:00 Procedure ended.(Physican Out) 12:26:55 Fluoroscopy time 04.30 minutes. 12:27:08 Fluoroscopy dose: 88 mGy 12:27:08 Flurop Dose total: 88 12:27:18 Insertion/operative site no bleeding no hematoma. 12:27:23 Post-op/insertion site Left Fistula dressed using a 4 x 4 and Tegaderm. 12:27:32 Post left arm:stable 12:27:40 Contrast amount:Isovue 300 80ml. 12:27:44 Procedure and supply charges have been captured, reviewed, submitted an d are correct. 12:32:38 Estimated blood loss: 0 ml 12:32:45 Report given to Med II. 12:32:49 Patient transfered to Med II with Bed. 12:33:27 Vital chart was stopped Intervention Summary Intervention Notes Time ActionType Lesion and Equipment Used Action# Pressure Duration Attributes :: Inflate Undefined1 Evercross 7 x 2 1 0 00:00 balloon x 135 Balloon ([id number]) Device Usage Item Name Manufacture Quantity Catalog Number Hospital Part Current M inimal Lot# / Charge Number Stock Stock Serial# Code Bag Decanter Microtek 1 [id number] 5 (2002) Medical Inc. Sterile Cardinal 1 [id number] [id number] 5 Angiographic Health Pack Tegaderm 4 x 4 3M 1 1626W 149789 354671 769232 5 (1626W) DOUBLE ENDED [employer] 1 [id number] 429709 949426 1 [id number] GUIEDWIRE DOC 145CM ([id number]) DILATOR, VESSEL [employer] 1 [id number] 099373 51110 816100 5 [id number] 02/18 PERCUTANEOUS [employer] 1 [id number] 149034 881728 5 [id number] ENTRY 19GA needle [facility] Jacob 6FR 5cm St Jacob 2 387703 107434 712508 5 [id number] sheath [id number] Arrow 6Fr Teleflex 1 [id number] 991498 502541 654938 5 TREROTOLA thrombectomy INFLATOR Merit 1 [id number] 239665 442670 387233 5 [facility] ([id number]) ROSSI 260 wire [employer] 1 [id number] 367956 949910 988900 5 [id number] ([id number]) Evercross 7 x 2 Medtronic 1 [id number] 745502 778824 6563853 5 x 135 Balloon ([id number]) Signature Audit [place] Stage Time Signature Unsigned Intra-Procedure 08/14/2020 Koby 12:33:23 PM [place] RT (R) (CV) [facility] [address] [place] [address]
[~2020-07-30 19:11] MED LIST changes: -GABAPENTIN300 MG PO; +HYDROCODON-ACE1 EA10 PO; +SENNA LAXATIVE8.6 MG PO
[2020-07-31 17:23] VITALS: BP 122/70; BMI 29.6
--- NOTE | 2020-07-31 19:46 | NUR ---
PAGE OUT TO RENAL FOR 3RD TIME TO ASK FOR MEDICATION ORDERS.
[2020-07-31 20:00] VITALS: BP 125/66
[2020-07-31] MEDS ORDERED: ULTRAM50 MG PO (21:05)
[2020-07-31] MEDS ORDERED: DIFLUCAN150 MG PO (21:08)
[2020-08-01] VITALS: BP 106/60
--- NOTE | 2020-08-01 03:07 | NUR ---
I have reviewed this patient and I concur with the Shift Assessment completed by the Licensed Practical Nurse today this shift.
[2020-08-01 04:00] VITALS: BP 120/60
[2020-08-01 06:07] LABS: BASOPHILS 0.2 % (0-2); EOSINOPHILS 1.3 % (0-7); HEMATOCRIT 25.7 % (36.0-48.0); HEMOGLOBIN 8.1 g/dL (12-16); IMMATURE GRANULOCYTES 0.8 % (0-5); LYMPHOCYTES 9.5 % (15-50); MCHC 31.5 g/dL (31.0-37.0); MCV 88.9 fL (80.0-100.0); MEAN PLATELET VOLUME 9.6 fL (7.4-10.4); MONOCYTES 9.1 % (2-11); NEUTROPHILS 79.1 % (40-80); PLATELET COUNT 261 10x3/uL (130-400); RBC 2.89 10x6/uL (4.00-5.40); RDW 15.6 % (11.5-14.5); WBC 9.7 10x3/uL (4.8-10.8)
[2020-08-01 06:20] LABS: ANION GAP 21.3 mmol/L (8-16); CALCIUM 8.6 mg/dL (8.5-10.1); CARBON DIOXIDE 21.9 mmol/L (21.0-32.0); CREATININE - SERUM 8.9 mg/dL (0.6-1.3); POTASSIUM - SERUM 5.2 mmol/L (3.5-5.1)
[2020-08-01 08:10] VITALS: BP 104/59
[2020-08-01 10:37] VITALS: Ht 175.3 cm; Wt 90.7 kg
[2020-08-01 11:44] VITALS: BP 104/59; BP 130/68
[2020-08-01 20:21] VITALS: BP 122/66
[2020-08-02] VITALS: BP 97/56
[2020-08-02 04:23] LABS: BASOPHILS 0.4 % (0-2); EOSINOPHILS 1.9 % (0-7); HEMATOCRIT 24.8 % (36.0-48.0); HEMOGLOBIN 7.6 g/dL (12-16); IMMATURE GRANULOCYTES 0.8 % (0-5); LYMPHOCYTES 8.5 % (15-50); MCH 27.4 pg (26.0-34.0); MCHC 30.6 g/dL (31.0-37.0); MCV 89.5 fL (80.0-100.0); MEAN PLATELET VOLUME 9.1 fL (7.4-10.4); MONOCYTES 8.1 % (2-11); NEUTROPHILS 80.3 % (40-80); PLATELET COUNT 253 10x3/uL (130-400); RBC 2.77 10x6/uL (4.00-5.40); RDW 15.6 % (11.5-14.5); WBC 9.7 10x3/uL (4.8-10.8)
[2020-08-02 04:42] VITALS: BP 92/54
[2020-08-02 05:09] LABS: ALBUMIN 2.4 g/dL (3.4-5.0); ANION GAP 21.5 mmol/L (8-16); BILIRUBIN - DIRECT 0.15 mg/dL (0.00-0.30); BILIRUBIN - INDIRECT 0.38 mg/dL (0.00-1.00); BILIRUBIN - TOTAL 0.53 mg/dL (0.2-1.3); CALCIUM 8.3 mg/dL (8.5-10.1); CARBON DIOXIDE 20.6 mmol/L (21.0-32.0); CREATININE - SERUM 9.9 mg/dL (0.6-1.3); POTASSIUM - SERUM 5.1 mmol/L (3.5-5.1); PROTEIN - SERUM 6.2 g/dL (6.4-8.2)
[2020-08-02 05:41] LABS: PHOSPHOROUS 12.3 mg/dL (2.5-4.9)
[2020-08-02 09:52] VITALS: BP 101/55
[2020-08-02 12:48] LABS: AMYLASE - SERUM 24 U/L (25-115); INR 1.32 (0.85-1.17); LIPASE 66 U/L (73-393); PROTIME 16.3 SECONDS (11.6-15.0)
--- NOTE | 2020-08-02 15:32 | NUR ---
NOTIFIED DR. RAI LAB CALLED WITH POSITIVE BLOOD CULTURE. ORDER GIVEN TO GIVE 1 GRAM OF VANCOMYCIN IV.
--- NOTE | 2020-08-02 15:40 | NUR ---
CONFUSION HALLUCATIONS AND INCREASED SLEEPINESS NOTED TODAY NOTIFIED DR. RAI. WILL CONTINUE TO MONITOR PATIENT.
--- NOTE | 2020-08-02 19:34 | NUR ---
RECEIVED REPORT, ASSUMED CARE, BREATHING EVEN UNLABORED, CALL LIGHT IN REACH, BED LOWEST POSITION, NO S/S OF DISTRESS NOTED, TRIALYSIS CATH PATENT, FAMILY AT BEDSIDE
[2020-08-02 21:41] VITALS: BP 114/66
--- NOTE | 2020-08-03 04:31 | NUR ---
I have reviewed this patient and I concur with the Shift Assessment completed by the Licensed Practical Nurse today this shift.
[2020-08-03 04:40] VITALS: BP 115/62
[2020-08-03 07:05] LABS: ANION GAP 23.5 mmol/L (8-16); CALCIUM 8.4 mg/dL (8.5-10.1); CREATININE - SERUM 11.3 mg/dL (0.6-1.3); POTASSIUM - SERUM 5.5 mmol/L (3.5-5.1); THYROID STIMULATING HORMONE 2.42 uIU/mL (0.36-3.74)
[2020-08-03 07:07] LABS: PHOSPHOROUS 12.7 mg/dL (2.5-4.9)
[2020-08-03 07:26] LABS: BASOPHILS 0.3 % (0-2); EOSINOPHILS 4.2 % (0-7); IMMATURE GRANULOCYTES 0.8 % (0-5); LYMPHOCYTES 10.4 % (15-50); MCH 28.2 pg (26.0-34.0); MCHC 31.3 g/dL (31.0-37.0); MCV 90.2 fL (80.0-100.0); MEAN PLATELET VOLUME 9.5 fL (7.4-10.4); MONOCYTES 11.1 % (2-11); NEUTROPHILS 73.2 % (40-80); PLATELET COUNT 276 10x3/uL (130-400); RBC 2.66 10x6/uL (4.00-5.40); RDW 15.9 % (11.5-14.5); WBC 10.1 10x3/uL (4.8-10.8)
--- NOTE | 2020-08-03 07:36 | NUR ---
UPON WALKING INTO ROOM, PT HAD NC ON HEAD AND WAS SLEEPING. LIPS HAD A BLUE TINT TO THEM. PT AROUSED WITH VERBAL STIMULI AND WAS ABLE TO BE ALERT. O2 WAS 87%. INCREASED TO 3L NC. SATS CAME UP TO 93%. CUP OF ICE RECIEVED PER REQUEST. CALL LIGHT WITHIN REACH. PT TAKEN DOWN TO DIALYSIS VIA BED. DENIES FURTHER NEEDS OR PAIN AT THIS TIME. WILL CONTINUE TO MONTITOR.
[2020-08-03 07:39] LABS: HEMOGLOBIN 7.5 g/dL (12-16)
--- NOTE | 2020-08-03 07:58 | NUR ---
SPOKE WITH Lisa CHRISTENSEN WHO WAS ASKING ABOUT THE PATIENT'S CARE STATES HE WAS HER MEDICAL PROXY YEARS AGO AND WOULD LIKE AN UPDATE ON HER CARE. HE DID NOT HAVE A CODE TO RECIEVE INFORMATION. CALLED TO DIALYSIS TO SPEAK WITH PT AND SHE STATED TO TELL HIM THAT SHE WAS "FEELING SICK RIGHT NOW BUT WOULD CALL HIM LATER". SHE ALSO STATED THAT SHE DID NOT KNOW A AMPARO. TOLD AMPARO EXACTLY WHAT SHE STATED. RELUCTANTLY VERBALIZED UNDERSTANDING. WILL CONTINUE TO MONITOR.
[2020-08-03 08:12] LABS: HEPATITIS C ANTIBODY <0.1 S/CO RAT (0.0-0.9)
[2020-08-03 08:53] LABS: ALT (SGPT) 456 U/L (10-68)
--- NOTE | 2020-08-03 13:52 | NUR ---
PT LAYING SUPINE, RR EVEN AND UNLABORED ON 3L NC. PT STATES SHE IS ANXIOUS AND HURTING, WAS TOLD SHE COULD HAVE HER PRN MEDICATIONS BUT THEY HAD TO BE GIVEN 1 HOUR APART AT LEAST, VERBALIZED UNDERSTANDING. JERMAINE DE SOUZA ATTEMPTED TO REMOVE TRIALYSIS CATHETER PER DR. RAI'S ORDERS, PT STATED SHE WANTED TO WAIT ABOUT 20 MINUTES FOR THE MEDICATION TO TAKEE EFFECT. 20G PIV SITED TO RIGHT FOREARM X1 ATTEMPT. BLOOD INITIATED @ 1345 BY JERMAINE DE SOUZA. VSS REFLECTED BY THE TRANSFUSION SHEET. DENIES FURTHER NEEDS OR PAIN AT THIS TIME. CALL LIGHT WTIHIN REACH. BED IN LOWEST POSITION. WILL CONTINUE TO MONITOR.
--- NOTE | 2020-08-03 14:15 | NUR ---
TRIALYSIS REMOVED. PRESSURE HELD FOR 10 MINUTES, SITE CLEANED, AND PRESSURE DRESSING APPLIED. WILL CTM. NO S/S OF BLEEDING NOTED. CATHETER TIP FULLY INTACT.
[2020-08-03 15:00] VITALS: BP 114/60
--- NOTE | 2020-08-03 15:21 | NUR ---
I have reviewed this patient and I concur with the Shift Assessment completed by the Licensed Practical Nurse today this shift.
[2020-08-03 21:42] VITALS: BP 113/65
--- NOTE | 2020-08-04 00:18 | NUR ---
PT ENCOURGED TO DRINK APPLE JUICE TO HELP BRING UP SUGAR OF 80. PT HASN'T EATEN TODAY. PT COMPLAING OD PAIN. PRN TO BE GIVEN. VITALS STABLE. WILL CONTINUE TO MONITOR
[2020-08-04 01:49] VITALS: BP 111/61
--- NOTE | 2020-08-04 01:50 | NUR ---
PT COMPLAINS OF PAIN 9/10 GENERALIZED. PRN PAIN MEDICATION GIVEN. VITALS STABLE. 02-96 2L NC. BED LOW CALL LIGHT WITHIN REACH. WILL CONTINUE TO MONITOR.
--- NOTE | 2020-08-04 03:28 | NUR ---
I have reviewed this patient and I concur with the Shift Assessment completed by the Licensed Practical Nurse today this shift.
[2020-08-04 05:39] VITALS: BP 102/70
--- NOTE | 2020-08-04 05:47 | NUR ---
PT LETHARGIC WAKES TO VOICE AND IS ORIENTED X4 WHEN AWOKE. PT COMPLAINS OF NAUSEA WITHOUT VOMITING. PT HAS ZOFRAN DRIP AT 4.7. OTHERWISE VITALS STABLE. O2-96% 2L NC. BED LOW CALL LIGHT WITHIN REACH WILL CONTINUE TO MONITOR.
[2020-08-04 06:10] LABS: BASOPHILS 0.2 % (0-2); HEMATOCRIT 26.5 % (36.0-48.0); HEMOGLOBIN 8.3 g/dL (12-16); IMMATURE GRANULOCYTES 0.9 % (0-5); LYMPHOCYTES 10.4 % (15-50); MCH 28.1 pg (26.0-34.0); MCHC 31.3 g/dL (31.0-37.0); MCV 89.8 fL (80.0-100.0); MEAN PLATELET VOLUME 9.4 fL (7.4-10.4); MONOCYTES 13.9 % (2-11); NEUTROPHILS 67.6 % (40-80); PLATELET COUNT 224 10x3/uL (130-400); RBC 2.95 10x6/uL (4.00-5.40); RDW 15.9 % (11.5-14.5); WBC 8.5 10x3/uL (4.8-10.8)
--- NOTE | 2020-08-04 06:23 | NUR ---
PAGED DR. LIVE CONCERNIG PT'S 07/11 PAIN IN LLE.
[2020-08-04 06:46] LABS: ANION GAP 21.6 mmol/L (8-16); CALCIUM 8.4 mg/dL (8.5-10.1); CREATININE - SERUM 9.2 mg/dL (0.6-1.3)
[2020-08-04 06:48] LABS: PHOSPHOROUS 10.4 mg/dL (2.5-4.9); POTASSIUM - SERUM 4.6 mmol/L (3.5-5.1)
[2020-08-04 08:18] VITALS: BP 131/74
[2020-08-04 10:17] LABS: ALT (SGPT) 309 U/L (10-68)
--- NOTE | 2020-08-04 10:34 | NUR ---
PT ALERTA ND OREITNED, LYING IN BED. STATES SHE STILL FEELS REALLY TIRED, BUT LESS LETHARGY THAN THE PREVIOUS DAY. TOOK ALL MEDICATIONS WITHOUT COMPLICATIONS. WILL CNT. TO MONITOR. NO FAMILY AT BEDSIDE AT THIS TIME. CL IN REACH, SRX2.
--- NOTE | 2020-08-04 13:29 | NUR ---
I have reviewed this patient and I concur with the Shift Assessment completed by the Licensed Practical Nurse today this shift.
--- NOTE | 2020-08-04 15:35 | NUR ---
PT AWAKE AND ORIENTED, CONTINUES TO BE PRIMARILY LETHARGIC. FALLING ASLEEP QUICKLY WHILE DOING MUNDANE TASKS. V/S CONT. TO BE STABLE. CL IN REACH,S RX2. NO FAMILY AT BEDSIDE.
[2020-08-04 17:41] VITALS: BP 149/82
[2020-08-04 21:30] VITALS: BP 144/80
[2020-08-05 01:30] VITALS: BP 122/68
--- NOTE | 2020-08-05 03:29 | NUR ---
I have reviewed this patient and I concur with the Shift Assessment completed by the Licensed Practical Nurse today this shift.
[2020-08-05 04:00] VITALS: BP 124/70
[2020-08-05 04:35] VITALS: BP 130/76
[2020-08-05 06:23] LABS: BASOPHILS 0.1 % (0-2); EOSINOPHILS 7.1 % (0-7); HEMATOCRIT 27.3 % (36.0-48.0); HEMOGLOBIN 8.5 g/dL (12-16); IMMATURE GRANULOCYTES 0.9 % (0-5); LYMPHOCYTES 13.5 % (15-50); MCH 27.7 pg (26.0-34.0); MCHC 31.1 g/dL (31.0-37.0); MCV 88.9 fL (80.0-100.0); MEAN PLATELET VOLUME 9.2 fL (7.4-10.4); MONOCYTES 17.1 % (2-11); NEUTROPHILS 61.3 % (40-80); PLATELET COUNT 267 10x3/uL (130-400); RBC 3.07 10x6/uL (4.00-5.40); RDW 15.9 % (11.5-14.5); WBC 8.1 10x3/uL (4.8-10.8)
[2020-08-05 06:51] LABS: ANION GAP 17.2 mmol/L (8-16); CALCIUM 8.3 mg/dL (8.5-10.1); CARBON DIOXIDE 24.1 mmol/L (21.0-32.0); CREATININE - SERUM 10.3 mg/dL (0.6-1.3); POTASSIUM - SERUM 4.3 mmol/L (3.5-5.1)
[2020-08-05 07:02] LABS: PHOSPHOROUS 10.5 mg/dL (2.5-4.9)
[2020-08-05 09:39] VITALS: BP 125/76
--- NOTE | 2020-08-05 10:27 | NUR ---
PT AWAKE AND ORIENTED, C/O BEING EXTREMELY TIRED TODAY. V/S ARE STABLE AND WITHIN PTS NORMAL LIMITS. NO OTHER COMPLAINTS EXPRESSED THIS MORNING. TOOK ALL MEDICATIONS WITHOUT COMPLICATION. NO VISITORS AT THIS TIME. CL IN REACH, SRX2.
--- NOTE | 2020-08-05 10:32 | NUR ---
PT AWAKE AND ORIENTED. CONTINUES TO BE LETHARGIC AND FALLS TO SLEEP QUICKLY WHILE PREFORMING ADLS. PT EXPRESSES FRUSTRATION AT THIS AND IS HOPEFULL IT WILL GET BETTER WITH TIME. PROVIDED CLEAN LINNENS. TOOK ALL MEDICATIONS WITHOUT COMPLICATIONS. CL IN REACH, SRX2. WILL CNT. TO MONITOR. NO VISITORS PRESENT AT THIS TIME.
[2020-08-05 12:00] VITALS: BP 133/78
--- NOTE | 2020-08-05 12:18 | NUR ---
Nutrition Follow-up: ESRD on HD. Diet: Renal ADA PO intake: 50-100% x last 3 meals. States that her appetite is flucuating. She has not vomited today. States that her lips and mouth feel painful and raw. Last BM: none recorded since admit. Wt: 200# (08/01/20) Meds noted: humalog, lasix, protonix, zofran drip, renagel Labs noted: K 4.3(H), Ca 8.3(L), Na 129(L), Glu 121(H), PO4 10.5(H) Recommend continue current diet. Will add Nepro TID with meals. RD following.
--- NOTE | 2020-08-05 16:56 | NUR ---
I have reviewed this patient and I concur with the Shift Assessment completed by the Licensed Practical Nurse today this shift.
--- NOTE | 2020-08-05 21:00 | NUR ---
PT GIVEN OXIR FOR C/O GENERALIZED PAIN.PT RATED PAIN A 6 ON PAIN SCALE.
[2020-08-05 22:24] VITALS: BP 103/52
--- NOTE | 2020-08-06 02:00 | NUR ---
PT LAYING IN BED RESTING QUIETLY.EYES CLOSED.RESP ARE EVEN ET UNLABORED.iv WITHOUT S/S OF INFILTRATION.NO DISTRESS NOTED.
--- NOTE | 2020-08-06 02:50 | NUR ---
pt laying in bed with eyes closed.easily aroused.pt with some confusion. speech with some slurring of words.resp are even et unlabored. dressing to right neck is dry and intact.graph to left arm with dressing intact.IV to right forearm without s/s of infiltration noted.pt is lethargic.callbell in reach.bed in low position. siderails up x2.
[2020-08-06 03:19] VITALS: BP 136/71
[2020-08-06 05:16] LABS: BASOPHILS 0.1 % (0-2); EOSINOPHILS 8.3 % (0-7); HEMATOCRIT 30.7 % (36.0-48.0); HEMOGLOBIN 9.6 g/dL (12-16); IMMATURE GRANULOCYTES 0.5 % (0-5); LYMPHOCYTES 10.5 % (15-50); MCH 27.7 pg (26.0-34.0); MCHC 31.3 g/dL (31.0-37.0); MCV 88.7 fL (80.0-100.0); MEAN PLATELET VOLUME 9.4 fL (7.4-10.4); MONOCYTES 14.5 % (2-11); NEUTROPHILS 66.1 % (40-80); PLATELET COUNT 264 10x3/uL (130-400); RBC 3.46 10x6/uL (4.00-5.40); RDW 15.8 % (11.5-14.5); WBC 9.7 10x3/uL (4.8-10.8)
[2020-08-06 05:52] LABS: ALBUMIN 2.3 g/dL (3.4-5.0); ANION GAP 19.4 mmol/L (8-16); BILIRUBIN - DIRECT 0.13 mg/dL (0.00-0.30); BILIRUBIN - INDIRECT 0.46 mg/dL (0.00-1.00); BILIRUBIN - TOTAL 0.59 mg/dL (0.2-1.3); CALCIUM 8.4 mg/dL (8.5-10.1); CARBON DIOXIDE 23.3 mmol/L (21.0-32.0); POTASSIUM - SERUM 4.7 mmol/L (3.5-5.1); PROTEIN - SERUM 6.6 g/dL (6.4-8.2); VANCOMYCIN - RANDOM 14.5 ug/mL (10.0-20.0)
[2020-08-06 05:54] LABS: PHOSPHOROUS 11.4 mg/dL (2.5-4.9)
[2020-08-06 06:59] VITALS: BP 103/74
[2020-08-06 07:00] VITALS: BP 127/77
[2020-08-06 10:30] VITALS: BP 135/70
--- NOTE | 2020-08-06 10:40 | NUR ---
0702-LYING IN BED W/EYES CLOSED, RESP EVEN AND UNLABORED W/02@3L/NC IN PROGRESS. NO DISTRESS NOTED. 0850-LYING IN BED W/EYES CLOSED, AROUSES EASILY W/PHYSICAL STIMULI. AM PO MEDS ADMINISTERED AT THIS TIME, PT TOLERATED ALL WELL. PT AWAKES TO EAT BREAKFAST, DENIES ANY FURTHER NEEDS.
--- NOTE | 2020-08-06 14:46 | NUR ---
1126-PERCOCET ADMINISTERED/ORDER FOR C/O PAIN--PT TOLERATED WELL. 1300-NSG STUDENT IN ROOM ASSISTING PT W/NEEDS, NO DISTRESS NOTED.
--- NOTE | 2020-08-06 15:21 | NUR ---
PT GOING TO DIALYSIS/BED--ATIVAN GIVEN/REQUEST PRIOR TO LEAVING FLOOR
[2020-08-06 20:00] VITALS: BP 132/79
--- NOTE | 2020-08-06 20:15 | NUR ---
pt recieved back from dialysis.family at bedsidept c/o generalized pain.pt has02 in use @ 2l/m per nasal cannula.resp are even et unlabored.heartrate is regular.pt with a fair appetite.IV without s/s of infiltration.dressing to graft is dry and intact.callbell in reach. siderails up x2.will continue to monitor.
--- NOTE | 2020-08-06 22:09 | NUR ---
PT GIVEN PM MEDS REQUESTED.PT GIVEN PAIN MEDS.PT ALERT AND ORIENTED.WILL CONTINUE TO MONITOR.
[2020-08-07] VITALS: BP 134/77
--- NOTE | 2020-08-07 02:00 | NUR ---
PT RESTING QUIETLY. 02 IN USE. IV WITHOUT S/S OF INFILTRATION.ZOFRAN INFUSING.NO DISTRESS NOTED.
[2020-08-07 04:00] VITALS: BP 118/72
[2020-08-07 06:04] LABS: BASOPHILS 0.1 % (0-2); EOSINOPHILS 7.3 % (0-7); HEMATOCRIT 30.5 % (36.0-48.0); HEMOGLOBIN 9.4 g/dL (12-16); IMMATURE GRANULOCYTES 0.5 % (0-5); LYMPHOCYTES 12.8 % (15-50); MCH 27.6 pg (26.0-34.0); MCHC 30.8 g/dL (31.0-37.0); MCV 89.4 fL (80.0-100.0); MEAN PLATELET VOLUME 9.3 fL (7.4-10.4); MONOCYTES 12.5 % (2-11); NEUTROPHILS 66.8 % (40-80); PLATELET COUNT 237 10x3/uL (130-400); RBC 3.41 10x6/uL (4.00-5.40); RDW 15.6 % (11.5-14.5); WBC 7.5 10x3/uL (4.8-10.8)
[2020-08-07 06:21] LABS: ANION GAP 17.2 mmol/L (8-16); CARBON DIOXIDE 25.2 mmol/L (21.0-32.0); CREATININE - SERUM 8.4 mg/dL (0.6-1.3); POTASSIUM - SERUM 4.4 mmol/L (3.5-5.1)
[2020-08-07 07:42] VITALS: BP 141/80
--- NOTE | 2020-08-07 07:53 | NUR ---
0700 BEDSODE REPORT RECEIVED ASSESSMENT DORIS DISCUSSED PD WITH PT TRIALYSIS TO RIGHT NECK HAS BEED REMOVED DSG CDI DRESSING TO LEFT ARM AV FISTULA CDI PD CATH SECURED TO ABDOMIN WITH TAPE PT QUESTIONED IF SHE WAS HAVING SURGERY TODAY ON AV FISTULA LOOKED NOT IN CMPUTER SAYING THAT SURGERY WILL BE NEXT WEEK WHEN DR RODGERS RETURNS
--- NOTE | 2020-08-07 08:19 | MORECARE ---
CASE MANAGEMENT DISCHARGE SUMMARY PATIENT: MELY FRY UNIT: [id number] ADM DATE: 07/31/20 AGE: 45 : 77 SEX: F ROOM/BED: D.2104 AUTHOR: LAYTON MCCALL PHYSICIAN: REFERRING PHYSICIAN: MIGNON RAI MD DATE OF SERVICE: 08/07/20 Discharge Plan Patient Name: MELY FRY [facility] [facility] 1975 Planned Disposition: Inpatient Rehab Anticipated Discharge Date: Discharge Date: Expected LOS: 0 Initial Reviewer: [email or web address] Initial Review Date: 08/06/2020 Generated: 08/07/20 9:18 am DCPIA - Discharge Planning Initial Assessment Updated by [email or web address]: Aisha Mark on 08/07/20 8:15 am * Is the patient Alert and Oriented? Yes * How many steps to enter\exit or inside your home? 2/0 * PCP Dr. Young in [place] * Pharmacy [facility] in [place] * Preadmission Environment [facility] * Facility Name [facility] * ADLs Partial Dependent * Partial ADLs (Assistance needed) Ambulation Medication Management Toileting Transfers * Equipment Cane * List name and contact numbers for known caregivers / representatives who currently or will assist patient after discharge: Keith collier - [phone] * Verbal permission to speak to the caregivers and representatives has been obtained from the patient. Yes * Community resources currently utilized None * Additional services required to return to the preadmission environment? Yes * Can the patient safely return to the preadmission environment? Yes * Has this patient been hospitalized within the prior 30 days at any hospital? Yes Last DP export: 08/06/20 4:32 p Patient Name: MELY FRY Page 60976 at 0819 All edits/amendments must be made on the electronic document DICTATION DATE: 08/07/20817 MEDICAL REVIEW SPECIALIST: CHAS 08/07/20817 RPT#: [id number] DC DATE: STATUS: ADM IN [facility] [address] [place] [address] END OF REPORT
--- NOTE | 2020-08-07 08:27 | MORECARE ---
CASE MANAGEMENT DISCHARGE SUMMARY PATIENT: MELY FRY UNIT: [id number] ADM DATE: 07/31/20 AGE: 45 : 77 SEX: F ROOM/BED: D.2104 AUTHOR: CAL,DOC PHYSICIAN: REFERRING PHYSICIAN: MIGNON MACHADO MD DATE OF SERVICE: 08/07/20 Discharge Plan Patient Name: MELY FRY Facility: [facility]:[place] : 1975 Planned Disposition: Inpatient Rehab Anticipated Discharge Date: Discharge Date: Expected LOS: 0 Initial Reviewer: [email or web address] Initial Review Date: 08/06/2020 Generated: 08/07/20 9:26 am Comments DCP- Discharge Planning Updated by [email or web address]: Aisha Mark on 08/07/20 7:[address] Patient Name: MELY FRY Admission Status: Elective Accout number: [id number] Admission Date: 07-31-2020 : 1975 Admission Diagnosis:OTH COMPLICATION OF VASCULAR PROSTH DEV/GRFT, INIT Attending: Mignon Machado Current LOS: 7 Anticipated DC Date: Unknown Planned Disposition: Inpatient Rehab Primary Insurance: [employer] MANAGED MEDICAID Discharge Planning Comments: CM met with patient to complete initial dc planning assessment. CM educated patient on the CM role and verbal consent given by patient to complete assessment. CM verified patient's address, phone number, and emergency contact phone numbers. At discharge patient plans to go to an inpatient rehab. THUAN form signed by patient for [facility] inpatient rehab or [facility]. States "whoever will take my insurance. Signed form placed in chart and signed form given to patient. I discussed SNF as well, she does not want to choose a SNF at this time. CM will continue to follow and will assist as needed with dc plans/needs. Corporate Staff Accountant: Aisha Mark DCPIA - Discharge Planning Initial Assessment Updated by [email or web address]: Aisha Mark on 08/07/20 8:15 am * Is the patient Alert and Oriented? Yes * How many steps to enter\\exit or inside your home? 2/0 * PCP Dr. Young in [place] * Pharmacy [facility] in [place] * Preadmission Environment [facility] * Facility Name [facility] in [place] * ADLs Partial Dependent * Partial ADLs (Assistance needed) Ambulation Medication Management Toileting Transfers * Equipment Cane * List name and contact numbers for known caregivers / representatives who currently or will assist patient after discharge: Keith collier - [phone] * Verbal permission to speak to the caregivers and representatives has been obtained from the patient. Yes * Community resources currently utilized None * Additional services required to return to the preadmission environment? Yes * Can the patient safely return to the preadmission environment? Yes * Has this patient been hospitalized within the prior 30 days at any hospital? Yes Coverage Notice Reviewer: [email or web address] Lux Mark Notice Issued Date-Time: 08/07/2020 8:21 Notice Type: Patient Choice Letter Notice Delivered To: Patient Relationship to Patient: Self Sporting Goods Salesperson Name: Delivery Method: HAND - Hand Delivered Tiffany Days: Prior Verbal Notification: Recipient Understood Notice: Yes Recipient Signature: Yes Med Rec Note Co-signed by Attending: Coverage Notice Comment: THUAN for [facility] inpatient rehab or [facility] Last DP export: 08/07/20 7:19 a Patient Name: MELY FRY Page [phone] at 0827 All edits/amendments must be made on the electronic document DICTATION DATE: 08/07/20825 BILLET INSPECTOR: CHAS 08/07/20825 RPT#: [id number] DC DATE: STATUS: ADM IN [facility] [address] [place] [address] END OF REPORT
--- NOTE | 2020-08-07 10:28 | NUR ---
Rehab Note- Acute Inpatient Rehab prescreen order received. THe patient has [employer] insurance and will require a PreAuth. She has a tentative surgery scheduled on Thursday 08/09. Has a pending OT Eval that will be needed for PreAuth process. Will follow at this time and will initate PreAuth process when medically stable and acute work up completed. Thank you for this referral! Odessa Goddard RN CLinical Liaison, [facility] Rehab
--- NOTE | 2020-08-07 11:06 | MORECARE ---
CASE MANAGEMENT DISCHARGE SUMMARY PATIENT: MELY FRY UNIT: [id number] ADM DATE: 07/31/20 AGE: 45 : 79 SEX: F ROOM/BED: D.2104 AUTHOR: CAL,DOC PHYSICIAN: REFERRING PHYSICIAN: MIGNON MACHADO MD DATE OF SERVICE: 08/07/20 Discharge Plan Patient Name: MELY FRY Facility: [facility]:[place] : 1975 Planned Disposition: Inpatient Rehab Anticipated Discharge Date: Discharge Date: Expected LOS: 0 Initial Reviewer: [email or web address] Initial Review Date: 08/06/2020 Generated: 08/07/20 12:06 pm Comments DCP- Discharge Planning Updated by [email or web address]: Aisha Mark on 08/07/20 7:[address] Patient Name: MELY FRY Admission Status: Elective Accout number: [id number] Admission Date: 07-31-2020 : 1975 Admission Diagnosis:OTH COMPLICATION OF VASCULAR PROSTH DEV/GRFT, INIT Attending: Mignon Machado Current LOS: 7 Anticipated DC Date: Unknown Planned Disposition: Inpatient Rehab Primary Insurance: [employer] MANAGED MEDICAID Discharge Planning Comments: CM met with patient to complete initial dc planning assessment. CM educated patient on the CM role and verbal consent given by patient to complete assessment. CM verified patient's address, phone number, and emergency contact phone numbers. At discharge patient plans to go to an inpatient rehab. THUAN form signed by patient for [facility] inpatient [facility] or [facility]. States "whoever will take my insurance. Signed form placed in chart and signed form given to patient. I discussed SNF as well, she does not want to choose a SNF at this time. CM will continue to follow and will assist as needed with dc plans/needs. Assembler And Tester Electronics: Aisha Mark DCPIA - Discharge Planning Initial Assessment Updated by [email or web address]: Aisha Mark on 08/07/20 8:15 am * Is the patient Alert and Oriented? Yes * How many steps to enter\\exit or inside your home? 2/0 * PCP Dr. Young in [place] * Pharmacy [facility] in [place] * Preadmission Environment [facility] * Facility Name [facility] in [place] * ADLs Partial Dependent * Partial ADLs (Assistance needed) Ambulation Medication Management Toileting Transfers * Equipment Cane * List name and contact numbers for known caregivers / representatives who currently or will assist patient after discharge: Keith collier - [phone] * Verbal permission to speak to the caregivers and representatives has been obtained from the patient. Yes * Community resources currently utilized None * Additional services required to return to the preadmission environment? Yes * Can the patient safely return to the preadmission environment? Yes * Has this patient been hospitalized within the prior 30 days at any hospital? Yes External Providers External Provider: [employer] [facility] Next Contact Date: Service Request Date: Service Type: Resolution: Reviewer: Comments: Coverage Notice Reviewer: [email or web address] Lux Mark Notice Issued Date-Time: 08/07/2020 8:21 Notice Type: Patient Choice Letter Notice Delivered To: Patient Relationship to Patient: Self Drupal Web Developer Name: Delivery Method: HAND - Hand Delivered Tiffany Days: Prior Verbal Notification: Recipient Understood Notice: Yes Recipient Signature: Yes Med Rec Note Co-signed by Attending: Coverage Notice Comment: THUAN for [facility] inpatient rehab or [facility] Last DP export: 08/07/20 7:27 a Patient Name: MELY FRY Page [phone] at 1106 All edits/amendments must be made on the electronic document DICTATION DATE: 08/07/201105 SERVICE ADVISOR: CHAS 08/07/20 110 RPT#: [id number] DC DATE: STATUS: ADM IN [facility] [address] [facility] [place] [place] [address] END OF REPORT
--- NOTE | 2020-08-07 11:15 | MORECARE ---
CASE MANAGEMENT DISCHARGE SUMMARY PATIENT: MELY FRY UNIT: [id number] ADM DATE: 07/31/20 AGE: 45 : 79 SEX: F ROOM/BED: D.2104 AUTHOR: LAYTON MCCALL PHYSICIAN: REFERRING PHYSICIAN: MIGNON MACHADO MD DATE OF SERVICE: 08/07/20 Discharge Plan Patient Name: MELY FRY Facility: [facility]:[place] : 1975 Planned Disposition: Inpatient Rehab Anticipated Discharge Date: Discharge Date: Expected LOS: 0 Initial Reviewer: [email or web address] Initial Review Date: 08/06/2020 Generated: 08/07/20 12:15 pm Comments DCP- Discharge Planning Updated by [id number]: Aisha Mark on 08/07/20 10:[address] CM received a call from patient's boyfriend stating he had just spoken to patient and she would prefer a referral to [facility] [email or web address]. I have called Dulce Maria with [facility] [employer] and clinical faxed. She is pending possible surgery Wednesday, so will continue to follow. CM will continue to follow and assist with discharge planning/needs. DCP- Discharge Planning Updated by [id number]: Aisha Mark on 08/07/20 7:[address] Patient Name: MELY FRY Admission Status: Elective Accout number: [id number] Admission Date: 07-31-2020 : 1975 Admission Diagnosis:OTH COMPLICATION OF VASCULAR PROSTH DEV/GRFT, INIT Attending: Mignon Machado Current LOS: 7 Anticipated DC Date: Unknown Planned Disposition: Inpatient Rehab Primary Insurance: [employer] MANAGED MEDICAID Discharge Planning Comments: CM met with patient to complete initial dc planning assessment. CM educated patient on the CM role and verbal consent given by patient to complete assessment. CM verified patient's address, phone number, and emergency contact phone numbers. At discharge patient plans to go to an inpatient rehab. THUAN form signed by patient for [facility] inpatient rehab or [facility]. States "whoever will take my insurance. Signed form placed in chart and signed form given to patient. I discussed SNF as well, she does not want to choose a SNF at this time. CM will continue to follow and will assist as needed with dc plans/needs. Medical Director: Aisha Mark DCPIA - Discharge Planning Initial Assessment Updated by [email or web address]: Aisha Mark on 08/07/20 8:15 am * Is the patient Alert and Oriented? Yes * How many steps to enter\\exit or inside your home? 2/0 * PCP Dr. Young in [place] * Pharmacy [facility] in [place] * Preadmission Environment [facility] * Facility Name [facility] in [place] * ADLs Partial Dependent * Partial ADLs (Assistance needed) Ambulation Medication Management Toileting Transfers * Equipment Cane * List name and contact numbers for known caregivers / representatives who currently or will assist patient after discharge: Keith Patrickedwin Wasserman nasjanetonia - [phone] * Verbal permission to speak to the caregivers and representatives has been obtained from the patient. Yes * Community resources currently utilized None * Additional services required to return to the preadmission environment? Yes * Can the patient safely return to the preadmission environment? Yes * Has this patient been hospitalized within the prior 30 days at any hospital? Yes Coverage Notice Reviewer: [id number] - Aisha Mark Notice Issued Date-Time: 08/07/2020 8:21 Notice Type: Patient Choice Letter Notice Delivered To: Patient Relationship to Patient: Self Cryptologic Linguist Name: Delivery Method: HAND - Hand Delivered Tiffany Days: Prior Verbal Notification: Recipient Understood Notice: Yes Recipient Signature: Yes Med Rec Note Co-signed by Attending: Coverage Notice Comment: THUAN for [facility] inpatient rehab or [facility] Last DP export: 08/07/20 10:06 a Patient Name: MELY FRY Page [phone] at 1115 All edits/amendments must be made on the electronic document DICTATION DATE: 08/07/20 1115 IT SECURITY ENGINEER: CHAS 08/07/20 1115 RPT#: [id number] DC DATE: STATUS: ADM IN [facility] [address] [place] [address] END OF REPORT
--- NOTE | 2020-08-07 12:37 | NUR ---
COMPLAINTS OF PAIN TO NECK AND ARM 04/10. OXY. GIVEN PER ORDERS
[2020-08-07 14:21] VITALS: BP 110/61
[2020-08-07 16:16] VITALS: BP 108/68
--- NOTE | 2020-08-07 19:13 | NUR ---
RECIEVED UP IN BED WITH EYES OPENA ND TV ON. ALERT AND ORIENTED X4. O2@ 2 LITERS PER N/C. IV TO RT FA WITH ZOFRAN AT 4.7ML/HR. DSG TO RT NECK. LT ARM RESERVED D/T AVF. DENIES ANY NEEDS AT THIS TIME.
[2020-08-07 20:00] VITALS: BP 116/70
[2020-08-08] VITALS: BP 104/66
[2020-08-08 04:00] VITALS: BP 137/62
[2020-08-08 08:15] LABS: AMYLASE - SERUM 20 U/L (25-115); LIPASE 98 U/L (73-393)
[2020-08-08 09:40] LABS: BASOPHILS 0 % (0-2); EOSINOPHILS 8.8 % (0-7); HEMATOCRIT 30.5 % (36.0-48.0); HEMOGLOBIN 9.5 g/dL (12-16); IMMATURE GRANULOCYTES 0.2 % (0-5); LYMPHOCYTES 8.5 % (15-50); MCH 27.6 pg (26.0-34.0); MCHC 31.1 g/dL (31.0-37.0); MCV 88.7 fL (80.0-100.0); MONOCYTES 14.7 % (2-11); NEUTROPHILS 67.8 % (40-80); PLATELET COUNT 213 10x3/uL (130-400); RBC 3.44 10x6/uL (4.00-5.40); RDW 15.3 % (11.5-14.5); WBC 8.4 10x3/uL (4.8-10.8)
[2020-08-08 09:44] LABS: ANION GAP 18.6 mmol/L (8-16); CALCIUM 8.1 mg/dL (8.5-10.1); CREATININE - SERUM 9.4 mg/dL (0.6-1.3); POTASSIUM - SERUM 4.6 mmol/L (3.5-5.1)
[2020-08-08 09:51] LABS: ALBUMIN 2.2 g/dL (3.4-5.0); BILIRUBIN - TOTAL 0.62 mg/dL (0.2-1.3); PHOSPHOROUS 8.3 mg/dL (2.5-4.9); PROTEIN - SERUM 5.8 g/dL (6.4-8.2)
[2020-08-08 10:17] VITALS: BP 103/64
--- NOTE | 2020-08-08 10:50 | NUR ---
PATIENT DOWN TO DIALYSIS
--- NOTE | 2020-08-08 12:13 | NUR ---
Nutrition Follow-up: C/o nausea. Reports that she felt hungry this AM but did not like the food provided; attempting to eat yogurt at time of visit. States that Nepro is "ok". PO4 improved but remains elevated; noted binder increased. Plans for HD today and AVG revision tomorrow. Diet: Renal ADA, Nepro TID Wt: 200# (08/01) Last BM: 08/08 Labs noted: Na 130, K+ 4.6, Glu 141, Ca 8.1, PO4 8.3, Alb 2.2 Meds noted: Zofran, Renagel, Lasix, Protonix, Humalog -Encourage PO intake and honor food preferences within diet restrictions. -Monitor wt. -RD following.
[2020-08-08 16:59] VITALS: BP 106/64
--- NOTE | 2020-08-08 17:17 | MORECARE ---
CASE MANAGEMENT DISCHARGE SUMMARY PATIENT: MELY FRY UNIT: [id number] ADM DATE: 07/31/20 AGE: 45 : 79 SEX: F ROOM/BED: D.7154 AUTHOR: LAYTON MCCALL PHYSICIAN: REFERRING PHYSICIAN: MIGNON MACHADO MD DATE OF SERVICE: 08/08/20 Discharge Plan Patient Name: MELY FRY Facility: [facility]:[place] : 1975 Planned Disposition: Inpatient Rehab Anticipated Discharge Date: Discharge Date: Expected LOS: 0 Initial Reviewer: [email or web address] Initial Review Date: 08/06/2020 Generated: 08/08/20 6:16 pm Comments DCP- Discharge Planning Updated by [email or web address]: Lara Klein on 08/08/20 4:[address] CM left a message for Jocye, with [facility] regarding acceptance, but has not received a response as yet. DCP- Discharge Planning Updated by [email or web address]: Aisha Mark on 08/07/20 10:[address] CM received a call from patient's boyfriend stating he had just spoken to patient and she would prefer a referral to [facility]. I have called Dulce Maria with [facility] and clinical faxed. She is pending possible surgery Wednesday, so will continue to follow. CM will continue to follow and assist with discharge planning/needs. DCP- Discharge Planning Updated by [id number]: Aisha Mark on 08/07/20 7:[address] Patient Name: MELY FRY Admission Status: Elective Accout number: [id number] Admission Date: 07-31-2020 : 1975 Admission Diagnosis:OTH COMPLICATION OF VASCULAR PROSTH DEV/GRFT, INIT Attending: Mignon Machado Current LOS: 7 Anticipated DC Date: Unknown Planned Disposition: Inpatient Rehab Primary Insurance: [facility] MANAGED MEDICAID Discharge Planning Comments: CM met with patient to complete initial dc planning assessment. CM educated patient on the CM role and verbal consent given by patient to complete assessment. CM verified patient's address, phone number, and emergency contact phone numbers. At discharge patient plans to go to an inpatient rehab. THUAN form signed by patient for [facility] inpatient rehab or [facility]. States "whoever will take my insurance. Signed form placed in chart and signed form given to patient. I discussed SNF as well, she does not want to choose a SNF at this time. CM will continue to follow and will assist as needed with dc plans/needs. Paper Bag Maker: Aisha Mark DCPIA - Discharge Planning Initial Assessment Updated by [email or web address]: Aisha Mark on 08/07/20 8:15 am * Is the patient Alert and Oriented? Yes * How many steps to enter\\exit or inside your home? 2/0 * PCP Dr. Young in [place] * Pharmacy [facility] in [place] * Preadmission Environment Snf Acute Care Facility * Facility Name [facility] in [place] * ADLs Partial Dependent * Partial ADLs (Assistance needed) Ambulation Medication Management Toileting Transfers * Equipment Cane * List name and contact numbers for known caregivers / representatives who currently or will assist patient after discharge: Keith collier - [phone] * Verbal permission to speak to the caregivers and representatives has been obtained from the patient. Yes * Community resources currently utilized None * Additional services required to return to the preadmission environment? Yes * Can the patient safely return to the preadmission environment? Yes * Has this patient been hospitalized within the prior 30 days at any hospital? Yes Coverage Notice Reviewer: [id number] - Aisha Mark Notice Issued Date-Time: 08/07/2020 8:21 Notice Type: Patient Choice Letter Notice Delivered To: Patient Relationship to Patient: Self Mine Equipment Design Engineer Name: Delivery Method: HAND - Hand Delivered Tiffany Days: Prior Verbal Notification: Recipient Understood Notice: Yes Recipient Signature: Yes Med Rec Note Co-signed by Attending: Coverage Notice Comment: THUAN for [facility] inpatient rehab or [facility] Last DP export: 08/07/20 10:15 a Patient Name: MELY FRY Page 61683 at 1717 All edits/amendments must be made on the electronic document DICTATION DATE: 08/08/201715 PHOTOGRAMMETRIC TECHNICIAN: CHAS 08/08/201715 RPT#: [id number] DC DATE: STATUS: ADM IN [facility] [address] [place] [address] END OF REPORT
[2020-08-08 20:00] VITALS: BP 135/73
[2020-08-09 04:00] VITALS: BP 109/64
--- NOTE | 2020-08-09 07:42 | NUR ---
RECEIVE SHIFT REPORT. PATIENT RESTING IN BED WITH LIGHTS OFF. NPO SINCE MIDNIGHT FOR REVISION OF LAVF TODAY. WILL CONTINUE PLAN OF CARE AND SAFETY PRECAUTIONS.
--- NOTE | 2020-08-09 08:00 | MORECARE ---
CASE MANAGEMENT DISCHARGE SUMMARY PATIENT: MELY FRY UNIT: [id number] ADM DATE: 07/31/20 AGE: 45 : [birth year] SEX: F ROOM/BED: D.2104 AUTHOR: LAYTON MCCALL PHYSICIAN: REFERRING PHYSICIAN: MIGNON MACHADO MD DATE OF SERVICE: 08/09/20 Discharge Plan Patient Name: MELY FRY Facility: [facility]:[place] : 1975 Planned Disposition: Inpatient Rehab Anticipated Discharge Date: Discharge Date: Expected LOS: 0 Initial Reviewer: [email or web address] Initial Review Date: 08/06/2020 Generated: 08/09/20 8:59 am Comments DCP- Discharge Planning Updated by [id number]: Aisha Mark on 08/09/20 6:[address] Updated clinical with PT/OT notes faxed to [facility] INpatient rehab. CM will continue to follow and assist with discharge planning/needs. DCP- Discharge Planning Updated by [email or web address]: Lara Klein on 08/08/20 4:[address] CM left a message for Joyce, with [facility] regarding acceptance, but has not received a response as yet. DCP- Discharge Planning Updated by [id number]: Aisha Mark on 08/07/20 10:[address] CM received a call from patient's boyfriend stating he had just spoken to patient and she would prefer a referral to [facility]. I have called Dulce Maria with [facility] and clinical faxed. She is pending possible surgery Wednesday, so will continue to follow. CM will continue to follow and assist with discharge planning/needs. DCP- Discharge Planning Updated by [email or web address]: Aisha Mark on 08/07/20 7:[address] Patient Name: MELY FRY Admission Status: Elective Accout number: [id number] Admission Date: 07-31-2020 : 1975 Admission Diagnosis:OTH COMPLICATION OF VASCULAR PROSTH DEV/GRFT, INIT Attending: Mignon Machado Current LOS: 7 Anticipated DC Date: Unknown Planned Disposition: Inpatient Rehab Primary Insurance: [employer] MANAGED MEDICAID Discharge Planning Comments: CM met with patient to complete initial dc planning assessment. CM educated patient on the CM role and verbal consent given by patient to complete assessment. CM verified patient's address, phone number, and emergency contact phone numbers. At discharge patient plans to go to an inpatient rehab. THUAN form signed by patient for [facility] inpatient rehab or [facility]. States "whoever will take my insurance. Signed form placed in chart and signed form given to patient. I discussed SNF as well, she does not want to choose a SNF at this time. CM will continue to follow and will assist as needed with dc plans/needs. Body Die Maker: Aisha Mark DCPIA - Discharge Planning Initial Assessment Updated by [id number]: Aisha Mark on 08/07/20 8:15 am * Is the patient Alert and Oriented? Yes * How many steps to enter\\exit or inside your home? 2/0 * PCP Dr. Young in [place] * Pharmacy [facility] in [place] * Preadmission Environment Correction Acute Care Facility * Facility Name [facility] * ADLs Partial Dependent * Partial ADLs (Assistance needed) Ambulation Medication Management Toileting Transfers * Equipment Cane * List name and contact numbers for known caregivers / representatives who currently or will assist patient after discharge: Keithadalgisa Charltontonia Wasserman nando - [phone] * Verbal permission to speak to the caregivers and representatives has been obtained from the patient. Yes * Community resources currently utilized None * Additional services required to return to the preadmission environment? Yes * Can the patient safely return to the preadmission environment? Yes * Has this patient been hospitalized within the prior 30 days at any hospital? Yes Coverage Notice Reviewer: [id number] - Aisha Mark Notice Issued Date-Time: 08/07/2020 8:21 Notice Type: Patient Choice Letter Notice Delivered To: Patient Relationship to Patient: Self Oyster Opener Name: Delivery Method: HAND - Hand Delivered Tiffany Days: Prior Verbal Notification: Recipient Understood Notice: Yes Recipient Signature: Yes Med Rec Note Co-signed by Attending: Coverage Notice Comment: THUAN for [facility] inpatient rehab or [facility] Last DP export: 08/08/20 4:17 p Patient Name: MELY FRY Page [id number] Electronically Signed by [facility] on 08/09/20 at 0800 All edits/amendments must be made on the electronic document DICTATION DATE: 08/09/20799 NANOELECTRONICS ENGINEER: CHAS 08/09/20799 RPT#: [id number] DC DATE: STATUS: ADM IN [facility] [address] [place] [address] END OF REPORT
[2020-08-09 10:44] VITALS: BP 126/70
--- NOTE | 2020-08-09 11:43 | NUR ---
OT NOTE: PT PERFORMED VERY WELL TODAY. BED MOB WITH SPV; SIT TO STAND AND TRANSFER TO BS COMMODE WITH MIN/MOD ASSIST. PT ABLE TO STAND AT BEDSIDE WITH UE SUPPORT OF BED RAIL WHILE PERINEAL CARE PERFORMED.. PT WITH LARGE LIQUID BM AND WAS ABLE TO TOLERATE STANDING FOR GREATER THAN 5 MIN. ABLE TO FRANDY GOWN WITH MIN ASSIST. MAX ASSIST TO DOFF AND FRANDY SOCKS. BACK TO BED WITH SBA. PT VERY FATIGUED FOLLOWING THESE ACT, BUT DOING MUCH BETTER THAN PREVIOUS TMT SESSION. REPORTS THAT SHE IS HAVING SURGERY LATER TODAY. JAMA BROTHERS, OTR/L [phone]
[2020-08-09 13:47] VITALS: BP 111/65
--- NOTE | 2020-08-09 13:48 | NUR ---
PATIENT ARRIVED BACK TO UNIT VIA BED. VITAL SIGNS STABLE. FIANCE AT BEDSIDE. PATIENT AWAKE AND ORIENTED. WILL CONTINUE PLAN OF CARE.
[2020-08-09 23:04] VITALS: BP 118/72
[2020-08-10 02:06] VITALS: BP 153/77
[2020-08-10 05:53] VITALS: BP 130/59
--- NOTE | 2020-08-10 08:02 | NUR ---
PATIENT IS LYING FLAT IN BED THIS AM, PLAN OF CARE REVIEWED AND ASSESSMENT HAS BEEN COMPLETED. PATIENT REPORTS LEFT ARM PAIN FROM FISTULA PLACEMENT YESTERDAY. SHE ALSO REPORTS BEING ACHEY ALL OVER. PD NOTED TO MID ABD. PLAN OF CARE REVIEWED AND ASSESSMENT HAS BEEN COMPLETED. NAD NOTED. CALL LIGHT IN REACH.
[2020-08-10 08:23] VITALS: BP 150/80
[2020-08-10 11:56] VITALS: BP 170/78
--- NOTE | 2020-08-10 12:30 | NUR ---
NURSE RECHECKS PATIENT'S TEMP AND PULSE. PULSE IS 100 TEMP IS 99.5
--- NOTE | 2020-08-10 12:32 | NUR ---
PATIENT IS VERY LETHARGIC AND HAS BEEN ALL MORNING. PATIENT WILL FALL ASLEEP EVEN SHE IS TALKING. CANT HOLD HER WATER UP, SHE STATES SHE IS HURTING REALLY BAD, BUT NURSE UNSURE IF SHE SHOULD GIVE PAIN MEDS DUE TO BEING SO LETHARGIC.
--- NOTE | 2020-08-10 13:51 | NUR ---
NURSE CALLS NIKO WILKINS MEAT SALES AND STORAGE MANAGER. SHE GIVES VERBAL OKAY THAT NURSE CAN HOLD ON THE VANC IV AND SEND WITH HER WHEN SHE GOES TO DIALYSIS. AND TO GIVE 650 TYLENOL TO PATIENT FOR PAIN. NURSE VERBS UNDERSTANDING.
[2020-08-10 16:08] VITALS: BP 140/76
--- NOTE | 2020-08-10 16:41 | NUR ---
PT PRE MEDICATED FOR DIALYSIS
--- NOTE | 2020-08-10 19:05 | NUR ---
REPORT RECEIVED, PT CARE ASSUMED. PT IN DIALYSIS.
[2020-08-10 20:30] VITALS: BP 112/76
[2020-08-11 00:30] VITALS: BP 128/64
[2020-08-11 04:30] VITALS: BP 133/67
--- NOTE | 2020-08-11 07:20 | NUR ---
RECIEVE REPORT. RESTING IN BED WITH EYES CLOSED. NO SIGNS OF DISTRESS. CONTINUE PLAN OF CARE AND SAFETY PRECAUTIONS.
[2020-08-11 08:32] VITALS: BP 149/72
[2020-08-11 11:34] LABS: BASOPHILS 0.1 % (0-2); EOSINOPHILS 5.7 % (0-7); HEMATOCRIT 34.9 % (36.0-48.0); HEMOGLOBIN 10.9 g/dL (12-16); IMMATURE GRANULOCYTES 0.6 % (0-5); LYMPHOCYTES 9.1 % (15-50); MCH 27.3 pg (26.0-34.0); MCHC 31.2 g/dL (31.0-37.0); MCV 87.3 fL (80.0-100.0); MEAN PLATELET VOLUME 9.6 fL (7.4-10.4); MONOCYTES 12.2 % (2-11); NEUTROPHILS 72.3 % (40-80); PLATELET COUNT 283 10x3/uL (130-400)
[2020-08-11 11:56] LABS: ANION GAP 15.1 mmol/L (8-16); BILIRUBIN - TOTAL 0.71 mg/dL (0.2-1.3); CARBON DIOXIDE 24.3 mmol/L (21.0-32.0); CREATININE - SERUM 7.8 mg/dL (0.6-1.3); PHOSPHOROUS 5.9 mg/dL (2.5-4.9); POTASSIUM - SERUM 4.4 mmol/L (3.5-5.1); PROTEIN - SERUM 5.6 g/dL (6.4-8.2); VANCOMYCIN - RANDOM 5.8 ug/mL (10.0-20.0)
[2020-08-11 12:40] VITALS: BP 128/78
[2020-08-11 16:13] VITALS: BP 124/74
[2020-08-11 20:46] VITALS: BP 109/64
[2020-08-12 01:31] VITALS: BP 135/67
[2020-08-12 05:41] VITALS: BP 107/64
[2020-08-12 07:11] LABS: BASOPHILS 0.1 % (0-2); EOSINOPHILS 6.9 % (0-7); HEMATOCRIT 31.1 % (36.0-48.0); HEMOGLOBIN 9.8 g/dL (12-16); IMMATURE GRANULOCYTES 0.7 % (0-5); LYMPHOCYTES 15.5 % (15-50); MCH 27.1 pg (26.0-34.0); MCHC 31.5 g/dL (31.0-37.0); MCV 86.1 fL (80.0-100.0); MEAN PLATELET VOLUME 9.2 fL (7.4-10.4); MONOCYTES 7.7 % (2-11); NEUTROPHILS 69.1 % (40-80); PLATELET COUNT 257 10x3/uL (130-400); RBC 3.61 10x6/uL (4.00-5.40); RDW 15.1 % (11.5-14.5); WBC 8.3 10x3/uL (4.8-10.8)
--- NOTE | 2020-08-12 07:20 | NUR ---
RECIEVE REPORT. RESTING IN BED WITH EYES CLOSED. NO SIGNS OF DISTRESS. CONTINUE PLAN OF CARE AND SAFETY PRECAUTIONS.
[2020-08-12 07:32] LABS: ALBUMIN 1.8 g/dL (3.4-5.0); ANION GAP 16.1 mmol/L (8-16); BILIRUBIN - TOTAL 0.56 mg/dL (0.2-1.3); CALCIUM 7.7 mg/dL (8.5-10.1); CARBON DIOXIDE 25.9 mmol/L (21.0-32.0); CREATININE - SERUM 8.5 mg/dL (0.6-1.3); PHOSPHOROUS 5.5 mg/dL (2.5-4.9); PROTEIN - SERUM 5.1 g/dL (6.4-8.2)
[2020-08-12 08:02] VITALS: BP 94/57
--- NOTE | 2020-08-12 10:20 | MORECARE ---
CASE MANAGEMENT DISCHARGE SUMMARY PATIENT: MELY FRY UNIT: [id number] ADM DATE: 07/31/20 AGE: 45 : 79 SEX: F ROOM/BED: D.8424 AUTHOR: CAL,DOC PHYSICIAN: REFERRING PHYSICIAN: MIGNON MACHADO MD DATE OF SERVICE: 08/12/20 Discharge Plan Patient Name: MELY FRY Facility: [facility]:[place] : 1975 Planned Disposition: Inpatient Rehab Anticipated Discharge Date: Discharge Date: Expected LOS: 0 Initial Reviewer: [email or web address] Initial Review Date: 08/06/2020 Generated: 08/12/20 11:19 am Comments DCP- Discharge Planning Updated by [id number]: Aisha Mark on 08/12/20 9:[address] Updated clinical faxed to [facility] and I spoke with Dulce Maria. Dulc eMaria states she will submit updates to insurance for CT. CM will continue to follow and assist with discharge planning/needs. DCP- Discharge Planning Updated by [email or web address]: Aisha Mark on 08/09/20 6:[address] Updated clinical with PT/OT notes faxed to [facility] INpatient rehab. CM will continue to follow and assist with discharge planning/needs. DCP- Discharge Planning Updated by [id number]: Lara Klein on 08/08/20 4:[address] CM left a message for Joyce, with [facility] regarding acceptance, but has not received a response as yet. DCP- Discharge Planning Updated by [email or web address]: Aisha Mark on 08/07/20 10:[address] CM received a call from patient's boyfriend stating he had just spoken to patient and she would prefer a referral to [facility]. I have called Dulce Maria with [facility] and clinical faxed. She is pending possible surgery Wednesday, so will continue to follow. CM will continue to follow and assist with discharge planning/needs. DCP- Discharge Planning Updated by [id number]: Aisha Mark on 08/07/20 7:[address] Patient Name: MELY FRY Admission Status: Elective Accout number: [id number] Admission Date: 07-31-2020 : 1975 Admission Diagnosis:OTH COMPLICATION OF VASCULAR PROSTH DEV/GRFT, INIT Attending: Mignon Machado Current LOS: 7 Anticipated DC Date: Unknown Planned Disposition: Inpatient Rehab Primary Insurance: [employer] MEDICAID Discharge Planning Comments: CM met with patient to complete initial dc planning assessment. CM educated patient on the CM role and verbal consent given by patient to complete assessment. CM verified patient's address, phone number, and emergency contact phone numbers. At discharge patient plans to go to an inpatient rehab. THUAN form signed by patient for [facility] inpatient rehab or [facility]. States "whoever will take my insurance. Signed form placed in chart and signed form given to patient. I discussed SNF as well, she does not want to choose a SNF at this time. CM will continue to follow and will assist as needed with dc plans/needs. Trucking Manager: Aisha Mark DCPIA - Discharge Planning Initial Assessment Updated by [email or web address]: Aisha Mark on 08/07/20 8:15 am * Is the patient Alert and Oriented? Yes * How many steps to enter\\exit or inside your home? 2/0 * PCP Dr. Young in [place] * Pharmacy [facility] in [place] * Preadmission Environment Drug Abuse Treatment Specialist Acute Care Facility * Facility Name [facility] in [place] * ADLs Partial Dependent * Partial ADLs (Assistance needed) Ambulation Medication Management Toileting Transfers * Equipment Cane * List name and contact numbers for known caregivers / representatives who currently or will assist patient after discharge: Keith collier - [phone] * Verbal permission to speak to the caregivers and representatives has been obtained from the patient. Yes * Community resources currently utilized None * Additional services required to return to the preadmission environment? Yes * Can the patient safely return to the preadmission environment? Yes * Has this patient been hospitalized within the prior 30 days at any hospital? Yes Coverage Notice Reviewer: [id number] - Aisha Mark Notice Issued Date-Time: 08/07/2020 8:21 Notice Type: Patient Choice Letter Notice Delivered To: Patient Relationship to Patient: Self Diet Kitchen Cook Name: Delivery Method: HAND - Hand Delivered Tiffany Days: Prior Verbal Notification: Recipient Understood Notice: Yes Recipient Signature: Yes Med Rec Note Co-signed by Attending: Coverage Notice Comment: THUAN for [facility] inpatient rehab or [facility] Last DP export: 08/09/20 7:00 a Patient Name: MELY FRY Page [id number] at 1020 All edits/amendments must be made on the electronic document DICTATION DATE: 08/12/20 1019 [place] FLOORS INSTALLER: CHAS 08/12/20 1019 RPT#: [id number] DC DATE: STATUS: ADM IN [facility] [address] [place] [address] END OF REPORT
[2020-08-12 11:56] VITALS: BP 108/74
--- NOTE | 2020-08-12 13:00 | NUR ---
ALERT AND ORIENTED X4. ATTEMPT TO FLUSH PD CATH ORDERED. UNABLE TO FILL. CLEAN AND REDRESS PD CATHETER. ON FLOOR, NOTIFY HER.
--- NOTE | 2020-08-12 14:08 | OP ---
PATIENT NAME: MELY FRY MEDICAL RECORD: [id number] :[birth year] LOCATION:D.M2 D.2104 ADMISSION DATE:07/31/20 SURGEON: MAX RODGERS MD DATE OF OPERATION: 08/09/2020 PREOPERATIVE DIAGNOSES: 1. Left upper extremity steal syndrome. 2. End-stage renal disease. 3. Left upper extremity AV graft in situ. 4. Diabetes mellitus. 5. Hypertension. POSTOPERATIVE DIAGNOSES: 1. Left upper extremity steal syndrome. 2. End-stage renal disease. 3. Left upper extremity AV graft in situ. 4. Diabetes mellitus. 5. Hypertension. PROCEDURE: Left upper extremity AV graft banding. SURGEON: Max Rodgers MD REPORT OF PROCEDURE: The patient's left upper extremity was prepped and draped in sterile fashion. The patient had a previous [id number] AV graft through PTFE material. A skin incision was made on the medial aspect of the left upper arm and electrocautery was used to dissect through the subcutaneous tissues. I was able to dissect out the arterial limb of the AV graft as it entered from the patient's axillary artery. We were able to get around this with a suture and as we manipulated the graft, we gauged the pulses in the left radial artery and also the flow through the graft. We were able to tighten down the entrance of the graft using the suture until we had a palpable pulse in the left radial artery, but we still had good brisk flow through the AV graft. After this first suture had been placed, then a second suture was placed just above this. Again, we continued to have good brisk flow through the AV graft and a palpable pulse in the left radial artery. At this point, we irrigated out the wound with normal saline. The subcutaneous tissues were reapproximated with interrupted 3-0 Vicryl and the skin was closed with running subcutaneous 5-0 Monocryl. COMPLICATIONS: None. CONDITION: Stable. ANESTHESIA: General endotracheal and local. BLOOD LOSS: Minimal. NTS:[id number] Voice Confirmation ID: [id number] DOCUMENT ID: [id number] OPERATIVE REPORT [id number] LISANDRAMELY MAX RODGERS MD at 1408 CC: [id number] DICTATION DATE: 08/09/20 1249 PAINTER SPRAY: 08/09/202047 ADM IN [facility] [address] [id number]
--- NOTE | 2020-08-12 15:10 | NUR ---
OT NOTE: BED MOB WITH MIN ASSIST FOR SUPINE TO SIT; ABLE TO WASH FACE AND HANDS WITH CLOTH AND SET UP..FEEDING WITH SET UP. PT EXHIBITING GOOD ROM IN L HAND, HOWEVER, PT CONT TO REPORT PAIN AND PARASTHESIA IN PROXIMAL AREA OF CARRANZA SURFACE. RIBBER STRENGTH REMAINS WEAK. MOD ASSIST FOR SIT TO STAND. MORE UNSTEADY TODAY WITH TRANSFERS. TOLERATING SITTING UP IN CHAIR FOR APPROX 3 HRS. RECOMMEND IP REHAB. JAMA BROTHERS, OTR/L
--- NOTE | 2020-08-12 15:58 | NUR ---
ALERT AND ORIENTED X4. SITTING UP IN BED. CONSENTS FOR PROCEDURE SIGNED ON CHART. CONTINUE PLAN OF CARE AND SAFEY PRECAUTIONS.
[2020-08-12 17:26] VITALS: BP 125/78
[2020-08-12 18:08] LABS: AEROBE ID Final report (())
--- NOTE | 2020-08-12 19:14 | NUR ---
OT NOTE: PT COMPLETED SUPINE TO SIT WITH CGA/MIN A. PT COMPLETED BED TO CHAIR TSF WITH CGA. PT COMPLETED UE AROM WITH WALKER MANAGEMENT. PT EXHIBITED INCREASED ACTIVITY TOLERANCE. [phone] HERI PHILIP COTA
[2020-08-12 23:15] VITALS: BP 115/68
[2020-08-13 03:03] VITALS: BP 127/81
[2020-08-13 05:52] LABS: BASOPHILS 0.1 % (0-2); EOSINOPHILS 8.6 % (0-7); IMMATURE GRANULOCYTES 0.7 % (0-5); LYMPHOCYTES 13.6 % (15-50); MCH 26.6 pg (26.0-34.0); MCV 85.8 fL (80.0-100.0); MEAN PLATELET VOLUME 9.7 fL (7.4-10.4); MONOCYTES 15.9 % (2-11); NEUTROPHILS 61.1 % (40-80); PLATELET COUNT 290 10x3/uL (130-400); RBC 3.38 10x6/uL (4.00-5.40); RDW 14.9 % (11.5-14.5); WBC 8.3 10x3/uL (4.8-10.8)
[2020-08-13 06:11] VITALS: BP 93/56
[2020-08-13 06:44] LABS: ALBUMIN 1.5 g/dL (3.4-5.0); ANION GAP 14.8 mmol/L (8-16); BILIRUBIN - TOTAL 0.47 mg/dL (0.2-1.3); CALCIUM 7.4 mg/dL (8.5-10.1); CARBON DIOXIDE 24.1 mmol/L (21.0-32.0); CREATININE - SERUM 8.8 mg/dL (0.6-1.3); POTASSIUM - SERUM 3.9 mmol/L (3.5-5.1); PROTEIN - SERUM 4.9 g/dL (6.4-8.2)
[2020-08-13 07:00] VITALS: BP 95/54
--- NOTE | 2020-08-13 07:20 | NUR ---
RECIEVE REPORT. RESTING IN BED WITH EYES CLOSED. NO SIGNS OF DISTRESS. CONTINUE PLAN OF CARE AND SAFETY PRECAUTIONS.
[2020-08-13 08:06] LABS: APTT 39.1 SECONDS (22.8-39.4); INR 1.21 (0.85-1.17); PROTIME 15.2 SECONDS (11.6-15.0)
--- NOTE | 2020-08-13 12:48 | NUR ---
Nutrition Follow-up: Pt out of room for procedure at time of visit this AM; noted plans for cathetergram of PD cath today. Per chart, pt eating 0-50% of meals. Wt: 200# (08/01) Labs noted: Na 128, K+ 3.9, Glu 126, Ca 7.4, Alb 1.5 Meds noted: Renagel, Zofran, Lasix, Protonix, Humalog, Lantus -Resume diet as medically feasible following procedure. -Encourage PO intake and honor food preferences within diet restrictions. -Monitor wt. -RD following.
--- NOTE | 2020-08-13 14:33 | NUR ---
OT NOTE: OUT OF ROOM IN PM JAMA BROTHERS, OTR/L
--- NOTE | 2020-08-13 16:47 | NUR ---
ALERT AND ORIENTED X4. INITIATE PD FLUSH. UNABLE TO FLUSH FOR 30 MINS. WHEN ATTEMPTING TO DISCONNECT PD FLUID BEGAN INFUSING. ABLE TO INSTILL 2000ml OF PD FLUID. BEGIN DRAINING PD.
--- NOTE | 2020-08-13 18:54 | NUR ---
ALERT AND ORIENTED X4. SITTING UP IN BED. SPOUSE AT BEDSIDE. CONSENTS FOR PROCEDURE SIGNED ON CHART. DENIES ANY NEEDS. CONTINUE PLAN OF CARE AND SAFETY PRECAUTIONS.
[2020-08-13 19:10] LABS: EOS BF 4 %; MACROPHAGES BF 18 %; NEUT - BF 71 %
[2020-08-13 20:00] VITALS: BP 108/68
[2020-08-14] VITALS: BP 164/78
[2020-08-14 04:00] VITALS: BP 163/65
[2020-08-14 06:35] LABS: BASOPHILS 0.1 % (0-2); HEMATOCRIT 32.3 % (36.0-48.0); HEMOGLOBIN 10.1 g/dL (12-16); IMMATURE GRANULOCYTES 0.9 % (0-5); LYMPHOCYTES 8.4 % (15-50); MCH 26.4 pg (26.0-34.0); MCHC 31.3 g/dL (31.0-37.0); MCV 84.6 fL (80.0-100.0); MEAN PLATELET VOLUME 9.1 fL (7.4-10.4); MONOCYTES 10.3 % (2-11); NEUTROPHILS 70.3 % (40-80); PLATELET COUNT 320 10x3/uL (130-400); RBC 3.82 10x6/uL (4.00-5.40); WBC 12.9 10x3/uL (4.8-10.8)
[2020-08-14 06:42] LABS: INR 1.06 (0.85-1.17); PROTIME 13.8 SECONDS (11.6-15.0)
[2020-08-14 06:43] LABS: APTT 26.2 SECONDS (22.8-39.4)
[2020-08-14 07:29] VITALS: BP 136/52
[2020-08-14 07:32] LABS: ALBUMIN 1.8 g/dL (3.4-5.0); ANION GAP 15.8 mmol/L (8-16); BILIRUBIN - TOTAL 0.44 mg/dL (0.2-1.3); CALCIUM 7.4 mg/dL (8.5-10.1); CARBON DIOXIDE 24.2 mmol/L (21.0-32.0); CREATININE - SERUM 9.5 mg/dL (0.6-1.3); PHOSPHOROUS 5.6 mg/dL (2.5-4.9); PROTEIN - SERUM 5.3 g/dL (6.4-8.2)
--- NOTE | 2020-08-14 07:53 | NUR ---
REVIEWED HARD CHART, NO EKG SEEN FOR SURGERY. DONE.
--- NOTE | 2020-08-14 08:10 | NUR ---
ROUNDING DONE WITH PATIENT RESTING WITH EYES CLOSED. NPO FOR SURGERY. ON 2L PER NC. NO IV ACCESS SEEN. ON HEART MONITOR. WILL RECEIVE CHG BATH AND GET READY FOR SURGERY.
--- NOTE | 2020-08-14 08:26 | NUR ---
ESSENCE BATH AND LINENS BEING DONE AT THIS TIME BY NURSING STUDENTS.
--- NOTE | 2020-08-14 10:24 | NUR ---
RIGHT UPPER ARM SALINE LOCK SITED PER GABI AMBROCIO NURSE
--- NOTE | 2020-08-14 13:17 | NUR ---
PILLOW PLACED UNDER LEFT ARM TO HELP KEEP STRIGHT. PATIENT HAS SOME EMESIS JUST NOW. WILL WAIT TILL THIS PASSES AND THEN CLEAN PATIENT AND NEW LINENS AGAIN.
--- NOTE | 2020-08-14 13:40 | NUR ---
BRUIT HEARD FAINTING TO LEFT ARM POST PROCEDURE.
--- NOTE | 2020-08-14 15:14 | NUR ---
COMPLAINTS OF PAIN TO LEFT ARM, PERCOCET GIVEN ORDERED. STATES TO ITCHING. WILL CALL FRANKY MULLINS [facility] FOR SOMETHING. CHICKEN NOODLE SOUP ORDERED FOR PATIENT.
--- NOTE | 2020-08-14 15:37 | NUR ---
OT NOTE: PT REQUIRED MIN A WITH SUPINE TO SIT. PT COMPLETED EOB SITTING WITH SBA. PT COMPLETED SIT TO STAND WITH CGA. PT DID WELL TODAY. [phone] THANK YOU,GILDA SMITH
[2020-08-14 15:55] VITALS: BP 103/51
--- NOTE | 2020-08-14 16:08 | NUR ---
PATIENT TO REFUSE THE RENAGEL AFTER THEY WERE ALREADY OPENED UP.
--- NOTE | 2020-08-14 16:31 | MORECARE ---
CASE MANAGEMENT DISCHARGE SUMMARY PATIENT: MELY FRY UNIT: [id number] ADM DATE: 07/31/20 AGE: 45 : 79 SEX: F ROOM/BED: D.9405 AUTHOR: CAL,DOC PHYSICIAN: REFERRING PHYSICIAN: MIGNON MACHADO MD DATE OF SERVICE: 08/14/20 Discharge Plan Patient Name: MELY FRY Facility: [facility]:[place] : 1975 Planned Disposition: Inpatient Rehab Anticipated Discharge Date: Discharge Date: Expected LOS: 0 Initial Reviewer: [email or web address] Initial Review Date: 08/06/2020 Generated: 08/14/20 5:30 pm Comments DCP- Discharge Planning Updated by [email or web address]: Aisha Mark on 08/14/20 3:[address] Dulce Maria with [facility] called and states they have Auth from patient's insurance for admission. I informed Dulce Maria of the fistulagram today and she may need to do PD. Dulce Maria states that the nurses there cannot assist with PD, so the patient or family member would need to do all PD themselves and use their own supplies. I called Norma Pat and informed her, they will assess patient in the am. CM will continue to follow and assist with discharge planning/needs. DCP- Discharge Planning Updated by [email or web address]: Aisha Mark on 08/12/20 9:[address] Updated clinical faxed to [facility] and I spoke with Dulce Maria. Dulce Maria states she will submit updates to insurance for PA. CM will continue to follow and assist with discharge planning/needs. DCP- Discharge Planning Updated by [id number]: Aisha Mark on 08/09/20 6:[address] Updated clinical with PT/OT notes faxed to [facility] INpatient rehab. CM will continue to follow and assist with discharge planning/needs. DCP- Discharge Planning Updated by [id number]: Lara Klein on 08/08/20 4:[address] CM left a message for Joyce, with [facility] regarding acceptance, but has not received a response as yet. DCP- Discharge Planning Updated by [id number]: Aisha Mark on 08/07/20 10:[address] CM received a call from patient's boyfriend stating he had just spoken to patient and she would prefer a referral to [facility]. I have called Dulce Maria with [facility] and clinical faxed. She is pending possible surgery Wednesday, so will continue to follow. CM will continue to follow and assist with discharge planning/needs. DCP- Discharge Planning Updated by [id number]: Aisha Lopezanabell on 08/07/20 7:[address] Patient Name: MELY FRY Admission Status: Elective Accout number: [id number] Admission Date: 07-31-2020 : 1975 Admission Diagnosis:OTH COMPLICATION OF VASCULAR PROSTH DEV/GRFT, INIT Attending: Mignon Machado Current LOS: 7 Anticipated DC Date: Unknown Planned Disposition: Inpatient Rehab Primary Insurance: [employer] MANAGED MEDICAID Discharge Planning Comments: CM met with patient to complete initial dc planning assessment. CM educated patient on the CM role and verbal consent given by patient to complete assessment. CM verified patient's address, phone number, and emergency contact phone numbers. At discharge patient plans to go to an inpatient rehab. THUAN form signed by patient for [facility] inpatient rehab or [facility]. States "whoever will take my insurance. Signed form placed in chart and signed form given to patient. I discussed SNF as well, she does not want to choose a SNF at this time. CM will continue to follow and will assist as needed with dc plans/needs. Justice Court Judge: Aisha Deedee DCPIA - Discharge Planning Initial Assessment Updated by [email or web address]: Aisha Mark on 08/07/20 8:15 am * Is the patient Alert and Oriented? Yes * How many steps to enter\\exit or inside your home? 2/0 * PCP Dr. Young in [place] * Pharmacy [facility] in [place] * Preadmission Environment Long-Term Acute Care Facility * Facility Name [facility] in [place] * ADLs Partial Dependent * Partial ADLs (Assistance needed) Ambulation Medication Management Toileting Transfers * Equipment Cane * List name and contact numbers for known caregivers / representatives who currently or will assist patient after discharge: Keith lovellientonia - [phone] * Verbal permission to speak to the caregivers and representatives has been obtained from the patient. Yes * Community resources currently utilized None * Additional services required to return to the preadmission environment? Yes * Can the patient safely return to the preadmission environment? Yes * Has this patient been hospitalized within the prior 30 days at any hospital? Yes Coverage Notice Reviewer: [email or web address] Lux Mark Notice Issued Date-Time: 08/07/2020 8:21 Notice Type: Patient Choice Letter Notice Delivered To: Patient Relationship to Patient: Self Concert Singer Name: Delivery Method: HAND - Hand Delivered Tiffany Days: Prior Verbal Notification: Recipient Understood Notice: Yes Recipient Signature: Yes Med Rec Note Co-signed by Attending: Coverage Notice Comment: THUAN for [facility] inpatient rehab or [facility] Last DP export: 08/12/20 9:20 Patient Name: MELY FRY Page 25202 at 1631 All edits/amendments must be made on the electronic document DICTATION DATE: 08/14/20 163 FIELD ADVISOR: CHAS 08/14/20 1631 RPT#: [id number] DC DATE: STATUS: ADM IN [facility] [address] [place] [address] END OF REPORT
--- NOTE | 2020-08-14 16:37 | NUR ---
DOPPLE TO LEFT UPPER INNER ARM, HEARTBEAT HEARD, PATIENT ALSO TO HEAR IT. ALBANIA WILKINS CALLED AND TOLD THIS.
--- NOTE | 2020-08-14 16:50 | NUR ---
COMPLETE LINEN CHANGE AND BATH GIVEN AGAIN R/T SICKNESS EARILER. PATIENT ATE CHICKEN NOODLE SOUP WITH DAUGHTER PRESENT.
[2020-08-14 20:00] VITALS: BP 93/46
--- NOTE | 2020-08-14 21:07 | NUR ---
PT ARRIVED TO DIALYSIS SUITE VIA BED. ATTEMPTED AVG STICK X2 ARTERIAL AND VENOUS. NO BLOOD FLASH, UNABLE TO CANNULATE. REMOVED MEDIUM SIZED CLOT FROM ARTERIAL CATH. CALLED DR MCCORMICK TO INFORM HER OF SITUATION.
[2020-08-15 06:46] LABS: HEMATOCRIT 32.5 % (36.0-48.0); HEMOGLOBIN 10.4 g/dL (12-16); MCH 27.7 pg (26.0-34.0); MCV 86.4 fL (80.0-100.0); MEAN PLATELET VOLUME 9.3 fL (7.4-10.4); NEUTROPHILS 73.9 % (40-80); PLATELET COUNT 262 10x3/uL (130-400); RBC 3.76 10x6/uL (4.00-5.40); RDW 15.4 % (11.5-14.5); WBC 15.5 10x3/uL (4.8-10.8)
[2020-08-15 07:04] LABS: ALBUMIN 1.9 g/dL (3.4-5.0); ANION GAP 22.2 mmol/L (8-16); BILIRUBIN - TOTAL 0.41 mg/dL (0.2-1.3); CALCIUM 7.3 mg/dL (8.5-10.1); CARBON DIOXIDE 21.9 mmol/L (21.0-32.0); POTASSIUM - SERUM 4.1 mmol/L (3.5-5.1); PROTEIN - SERUM 5.3 g/dL (6.4-8.2)
--- NOTE | 2020-08-15 07:43 | NUR ---
PT IS RESTING IN BED WITH EYES CLOSED. RESPIRATIONS ARE EVEN AND ULABORED. PT IS EASILY AROUSED WITH VERBAL STIMULATION. PT IS AAO X 4 UPON AROUSAL. PT DENIES PRESENCE OF PAIN/N/V AT THIS TIME. DRESSING TO RLQ IN PLACE AND IS CDI. PT DENIES PRESENCE OF DIZZINESS/DYSPNEA AT THIS TIME. PIV TO RIGHT HAND IN PLACE AND FLUSHES WITHOUT DIFFICULTY. BED IS IN THE LOWEST POSITION. CALL LIGHT AND BEDSIDE TABLE ARE WITHIN REACH. SIDE RAILS X 2. PT DENIES FURTHER NEEDS. WILL CONT TO MONITOR.
[2020-08-15 09:17] VITALS: BP 115/57
--- NOTE | 2020-08-15 10:06 | NUR ---
DIALYSIS COORDINATOR: SEVERAL NOTES REPEATING QUESTION: DOES THIS PATIENT HAVE A CHRONIC UNIT YET? I HAVE SPOKEN SEPARATELY TO DR. LEONARD, DR. MCCORMICK, DR. RAI AND DR. MARRUFO ABOUT THIS PATIENT. MY APOLOGIES THAT NOTE WASN'T UPDATED ACCORDINGLY. THIS PATIENT'S REFERRAL HAS BEEN STARTED FOR OPHD PLACEMENT WITH [facility]. HOWEVER, SINCE ANTICIPATED D/C IS TO ACUTE REHAB, IT IS NOT NECESSARY TO OBTAIN A CONFIRMED CHAIR TIME FOR PATIENT PRIOR TO D/C FROM THIS HOSPITALIZATION. SINCE IT IS UNKNOWN HOW LONG THE PATIENT WILL REMAIN WITH THE ACUTE REHAB IT WILL BE NECESSARY FOR THE CM STAFF WITH THE ACUTE REHAB TO F/U WITH [facility] ADMISSIONS & [facility] PRIOR TO PATIENT'S D/C FROM THEIR FACILITY TO ENSURE THE CLINIC HAS UTD HEP PANEL & CHEST XRAY (WITHIN 30 DAYS FROM D/C FROM THE ACUTE REHAB - NOT THIS HOSPITALIZATION). THIS IS THE TYPICAL PRACTICE FOR D/C FOR OPHD PATIENT'S DISCHARGING TO ACUTE REHAB FACILITIES. PLEASE FEEL FREE TO CONTACT ME WITH ANY QUESTIONS REGARDING THIS REFERRAL/PLACEMENT/PROCESS. ([phone]) ILAN ANN, PATIENT PATHWAYS, DIALYSIS COORDINATOR.
--- NOTE | 2020-08-15 11:03 | NUR ---
PT UP TO BSC. PT STATES THAT SHE HAD AN INCONTINENT BM "IT IS CONCERNING BECAUSE I DIDNT KNOW IT. I DIDNT HAVE THE URGE AND I DIDNT FEEL THAT IT HAPPENED" PER PT. PT DENIES PRESENCE OF PAIN/CRAMPING. STUDENT NURSE ASSISTING WITH ADLS AND FULL LINEN CHANGE.
--- NOTE | 2020-08-15 11:31 | NUR ---
Nutrition Follow-up: S/p fistulagram yesterday but unable to have HD yesterday. Ate 100% of breakfast this AM, 75% of dinner last night. Not drinking Nepro. No N/V this AM. Noted pt refusing Renagel. Diet: Renal ADA Wt: 200# (08/01) Last BM: 08/15 Labs noted: Na 132, K+ 4.1, Glu 178, Ca 7.3, Alb 1.9, PO4 5.6 (08/14) Meds noted: Renagel, Lasix, Protonix, Humalog -Need new wt if possible. -RD following.
--- NOTE | 2020-08-15 12:45 | NUR ---
OT NOTE: PT PERFORMED WELL TODAY. BED MOB WITH SPV; TOILET TRANSFERS WITH MIN/MOD ASSIST; HYGIENE WITH MIN ASSIST; SET UP FOR UPPER BODY BATHING; IN ROOM AMB WITH WALKER AND MIN ASSIST. JAMA BROTHERS, OTR/L [phone]
[2020-08-15 13:19] LABS: BASOPHILS 0.1 % (0-2); EOSINOPHILS 9.7 % (0-7); IMMATURE GRANULOCYTES 0.8 % (0-5); MONOCYTES 9.5 % (2-11)
[2020-08-15 16:00] VITALS: BP 150/62
--- NOTE | 2020-08-15 17:40 | NUR ---
CONSENT SIGNED FOR HEMOSPLIT PLACEMENT AND FISTULOGRAM WITH MECHANICAL THROMBECTOMY WITH DR RODGERS ON 08/16/2020 SIGNED BY PATIENT. PT DENIES FURTHER QUESTIONS/CONCERNS AT THIS TIME. SIGNED CONSENTS PLACED IN PT CHART.
[2020-08-15 20:00] VITALS: BP 116/75
[2020-08-16 04:00] VITALS: BP 90/67
[2020-08-16 06:08] LABS: BASOPHILS 0.1 % (0-2); EOSINOPHILS 9.2 % (0-7); HEMATOCRIT 27.2 % (36.0-48.0); HEMOGLOBIN 8.6 g/dL (12-16); LYMPHOCYTES 12.7 % (15-50); MCHC 31.6 g/dL (31.0-37.0); MCV 85.3 fL (80.0-100.0); MEAN PLATELET VOLUME 8.9 fL (7.4-10.4); MONOCYTES 9.4 % (2-11); NEUTROPHILS 67.6 % (40-80); PLATELET COUNT 270 10x3/uL (130-400); RBC 3.19 10x6/uL (4.00-5.40); RDW 15.3 % (11.5-14.5)
[2020-08-16 06:16] LABS: WBC 11.5 10x3/uL (4.8-10.8)
[2020-08-16 06:35] LABS: ALBUMIN 1.6 g/dL (3.4-5.0); ANION GAP 18.4 mmol/L (8-16); BILIRUBIN - TOTAL 0.38 mg/dL (0.2-1.3); CREATININE - SERUM 10.7 mg/dL (0.6-1.3); POTASSIUM - SERUM 4.4 mmol/L (3.5-5.1); PROTEIN - SERUM 4.8 g/dL (6.4-8.2)
[2020-08-16 07:18] LABS: PHOSPHOROUS 7.2 mg/dL (2.5-4.9)
[2020-08-16 07:20] LABS: CALCIUM 6.9 mg/dL (8.5-10.1)
[2020-08-16 09:00] VITALS: BP 99/48
--- NOTE | 2020-08-16 15:00 | NUR ---
PATIENT TO SURGERY VIA BED.
--- NOTE | 2020-08-16 15:47 | MORECARE ---
CASE MANAGEMENT DISCHARGE SUMMARY PATIENT: MELY FRY UNIT: [id number] ADM DATE: 07/31/20 AGE: 45 : 79 SEX: F ROOM/BED: D.3224 AUTHOR: CAL,DOC PHYSICIAN: REFERRING PHYSICIAN: MIGNON MACHADO MD DATE OF SERVICE: 08/16/20 Discharge Plan Patient Name: MELY FRY Facility: [facility]:[place] : 1975 Planned Disposition: Inpatient Rehab Anticipated Discharge Date: Discharge Date: Expected LOS: 0 Initial Reviewer: [email or web address] Initial Review Date: 08/06/2020 Generated: 08/16/20 4:46 pm Comments DCP- Discharge Planning Updated by [email or web address]: Lara Klein on 08/16/20 2:[address] CM spoke with Joyce this morning ([facility]). The plan is for patient to DC today to [facility]. Patient is pending surgery and HD. DCP- Discharge Planning Updated by [email or web address]: Aisha Mark on 08/14/20 3:[address] Dulce Maria with [facility] called and states they have Auth from patient's insurance for admission. I informed Dulce Maria of the fistulagram today and she may need to do PD. Dulce Maria states that the nurses there cannot assist with PD, so the patient or family member would need to do all PD themselves and use their own supplies. I called Norma Pat and informed her, they will assess patient in the am. CM will continue to follow and assist with discharge planning/needs. DCP- Discharge Planning Updated by [id number]: Aisha Mark on 08/12/20 9:[address] Updated clinical faxed to [facility] and I spoke with Dulce Maria. Dulce Maria states she will submit updates to insurance for PA. CM will continue to follow and assist with discharge planning/needs. DCP- Discharge Planning Updated by [email or web address]: Aisha Mark on 08/09/20 6:[address] Updated clinical with PT/OT notes faxed to [facility] INpatient rehab. CM will continue to follow and assist with discharge planning/needs. DCP- Discharge Planning Updated by [email or web address]: Lara Klein on 08/08/20 4:[address] CM left a message for Joyce, with [facility] regarding acceptance, but has not received a response as yet. DCP- Discharge Planning Updated by [email or web address]: Aisha Mark on 08/07/20 10:[address] CM received a call from patient's boyfriend stating he had just spoken to patient and she would prefer a referral to [facility]. I have called Dulce Maria with [facility] and clinical faxed. She is pending possible surgery Wednesday, so will continue to follow. CM will continue to follow and assist with discharge planning/needs. DCP- Discharge Planning Updated by [email or web address]: Aisha Mark on 08/07/20 7:[address] Patient Name: MELY FRY Admission Status: Elective Accout number: [id number] Admission Date: 07-31-2020 : 1975 Admission Diagnosis:OTH COMPLICATION OF VASCULAR PROSTH DEV/GRFT, INIT Attending: Mignon Machado Current LOS: 7 Anticipated DC Date: Unknown Planned Disposition: Inpatient Rehab Primary Insurance: [employer] MEDICAID Discharge Planning Comments: CM met with patient to complete initial dc planning assessment. CM educated patient on the CM role and verbal consent given by patient to complete assessment. CM verified patient's address, phone number, and emergency contact phone numbers. At discharge patient plans to go to an inpatient rehab. THUAN form signed by patient for [facility] inpatient rehab or [facility]. States "whoever will take my insurance. Signed form placed in chart and signed form given to patient. I discussed SNF as well, she does not want to choose a SNF at this time. CM will continue to follow and will assist as needed with dc plans/needs. Meter Inspector: Aisha Mark DCPIA - Discharge Planning Initial Assessment Updated by [id number]: Aisha Lopezanabell on 08/07/20 8:15 am * Is the patient Alert and Oriented? Yes * How many steps to enter\\exit or inside your home? 2/0 * PCP Dr. Young in [place] * Pharmacy [facility] in [place] * Preadmission Environment Trimming Machine Set Up Operator Acute Care Facility * Facility Name [facility] in [place] * ADLs Partial Dependent * Partial ADLs (Assistance needed) Ambulation Medication Management Toileting Transfers * Equipment Cane * List name and contact numbers for known caregivers / representatives who currently or will assist patient after discharge: Keith collier - [phone] * Verbal permission to speak to the caregivers and representatives has been obtained from the patient. Yes * Community resources currently utilized None * Additional services required to return to the preadmission environment? Yes * Can the patient safely return to the preadmission environment? Yes * Has this patient been hospitalized within the prior 30 days at any hospital? Yes Coverage Notice Reviewer: [email or web address] Lux Mark Notice Issued Date-Time: 08/07/2020 8:21 Notice Type: Patient Choice Letter Notice Delivered To: Patient Relationship to Patient: Self Dietitian Therapeutic Name: Delivery Method: HAND - Hand Delivered Tiffany Days: Prior Verbal Notification: Recipient Understood Notice: Yes Recipient Signature: Yes Med Rec Note Co-signed by Attending: Coverage Notice Comment: THUAN for [facility] inpatient rehab or [facility] Last DP export: 08/14/20 3:31 Patient Name: MELY FRY Page [id number] at 1547 All edits/amendments must be made on the electronic document DICTATION DATE: 08/16/20 1546 TECHNICAL APPLICATIONS SCIENTIST: CHAS 08/16/20 1546 RPT#: [id number] DC DATE: STATUS: ADM IN [facility] [address] [place] [address] END OF REPORT
--- NOTE | 2020-08-16 19:10 | NUR ---
OT NOTE: PT COMPLETED SUPINE TO SIT WITH CGA. PT COMPLETED SIT TO STAND WITH CGA. PT EXHIBITED INCREASED ACTIVITY TOLERANCE. [phone] THANK YOU,GILDA SMITH
--- NOTE | 2020-08-16 19:22 | NUR ---
PATIENT RETURNED TO ROOM FROM SURGERY WITH AT BEDSIDE. ALERT WITH COMPLAINS OF PAIN, WILL REPORT OFF TO ONCOMING NURSE AND TREAT PAIN.
[2020-08-16 21:00] VITALS: BP 117/71
[2020-08-17 05:00] VITALS: BP 115/67
--- NOTE | 2020-08-17 07:22 | NUR ---
RESTING QUIETLY WITH EYES CLOSED, MONITOR FOR NEEDS.
[2020-08-17 07:37] LABS: ALBUMIN 1.6 g/dL (3.4-5.0); BILIRUBIN - TOTAL 0.39 mg/dL (0.2-1.3); CARBON DIOXIDE 21.8 mmol/L (21.0-32.0); CREATININE - SERUM 11.3 mg/dL (0.6-1.3); POTASSIUM - SERUM 4.8 mmol/L (3.5-5.1); PROTEIN - SERUM 5.1 g/dL (6.4-8.2)
[2020-08-17 07:49] LABS: CALCIUM 6.8 mg/dL (8.5-10.1)
[2020-08-17 08:22] LABS: BASOPHILS 0.2 % (0-2); HEMATOCRIT 23.3 % (36.0-48.0); IMMATURE GRANULOCYTES 1.1 % (0-5); LYMPHOCYTES 14.6 % (15-50); MCH 26.7 pg (26.0-34.0); MCHC 31.3 g/dL (31.0-37.0); MCV 85.3 fL (80.0-100.0); MEAN PLATELET VOLUME 9.7 fL (7.4-10.4); MONOCYTES 8.1 % (2-11); PLATELET COUNT 244 10x3/uL (130-400); RBC 2.73 10x6/uL (4.00-5.40); RDW 15.6 % (11.5-14.5); WBC 12.2 10x3/uL (4.8-10.8)
[2020-08-17] MEDS ORDERED: LOPRESSOR25 MG PO (08:22)
[2020-08-17] MEDS ORDERED: PHOSLO667 MG PO (08:24)
[2020-08-17] MEDS ORDERED: Retacrit IV (08:25)
[2020-08-17] MEDS ORDERED: PROTONIX40 MG PO (08:25)
[2020-08-17 08:29] LABS: HEMOGLOBIN 7.3 g/dL (12-16)
[2020-08-17 10:53] VITALS: BP 111/85
--- NOTE | 2020-08-17 15:31 | MORECARE ---
CASE MANAGEMENT DISCHARGE SUMMARY PATIENT: MELY FRY UNIT: [id number] ADM DATE: 07/31/20 AGE: 45 : 79 SEX: F ROOM/BED: D.7714 AUTHOR: CAL,DOC PHYSICIAN: REFERRING PHYSICIAN: MIGNON MACHADO MD DATE OF SERVICE: 08/17/20 Discharge Plan Patient Name: MELY FRY Facility: [facility]:[place] : 1975 Planned Disposition: Inpatient Rehab Anticipated Discharge Date: Discharge Date: Expected LOS: 0 Initial Reviewer: [email or web address] Initial Review Date: 08/06/2020 Generated: 08/17/20 4:30 pm Comments DCP- Discharge Planning Updated by [email or web address]: Geronimo Coello on 08/17/20 2:[address] Spoke with [facility] in regards to request from field staff manager query for DC potential. [facility] stated that they could not intake on the weekend due to the lack of admin staff. CM will follow and assist PRN. DCP- Discharge Planning Updated by [id number]: Lara Klein on 08/16/20 2:[address] CM spoke with Joyce this morning ([facility]). The plan is for patient to DC today to [facility]. Patient is pending surgery and HD. DCP- Discharge Planning Updated by [id number]: Aisha Mark on 08/14/20 3:[address] Dulce Maria with [facility] called and states they have Auth from patient's insurance for admission. I informed Dulce Maria of the fistulagram today and she may need to do PD. Dulce Maria states that the nurses there cannot assist with PD, so the patient or family member would need to do all PD themselves and use their own supplies. I called Norma Adilia and informed her, they will assess patient in the am. CM will continue to follow and assist with discharge planning/needs. DCP- Discharge Planning Updated by [id number]: Aisha Mark on 08/12/20 9:[address] Updated clinical faxed to [facility] and I spoke with Dulce Maria. Dulce Maria states she will submit updates to insurance for PA. CM will continue to follow and assist with discharge planning/needs. DCP- Discharge Planning Updated by [id number]: Aisha Mark on 08/09/20 6:[address] Updated clinical with PT/OT notes faxed to [facility] INpatient rehab. CM will continue to follow and assist with discharge planning/needs. DCP- Discharge Planning Updated by [id number]: Lara Klein on 08/08/20 4:[address] CM left a message for Joyce, with [facility] regarding acceptance, but has not received a response as yet. DCP- Discharge Planning Updated by [email or web address]: Aisha Mark on 08/07/20 10:[address] CM received a call from patient's boyfriend stating he had just spoken to patient and she would prefer a referral to [facility]. I have called Dulce Maria with [facility] and clinical faxed. She is pending possible surgery Wednesday, so will continue to follow. CM will continue to follow and assist with discharge planning/needs. DCP- Discharge Planning Updated by [id number]: Aisha Mark on 08/07/20 7:[address] Patient Name: MELY FRY Admission Status: Elective Accout number: [id number] Admission Date: 07-31-2020 : 1975 Admission Diagnosis:OTH COMPLICATION OF VASCULAR PROSTH DEV/GRFT, INIT Attending: Mignon Machado Current LOS: 7 Anticipated DC Date: Unknown Planned Disposition: Inpatient Rehab Primary Insurance: [facility] MANAGED MEDICAID Discharge Planning Comments: CM met with patient to complete initial dc planning assessment. CM educated patient on the CM role and verbal consent given by patient to complete assessment. CM verified patient's address, phone number, and emergency contact phone numbers. At discharge patient plans to go to an inpatient rehab. THUAN form signed by patient for [facility] inpatient rehab or [facility]. States "whoever will take my insurance. Signed form placed in chart and signed form given to patient. I discussed SNF as well, she does not want to choose a SNF at this time. CM will continue to follow and will assist as needed with dc plans/needs. Health And Wellness Sales Consultant: Aisha Mark DCPIA - Discharge Planning Initial Assessment Updated by [email or web address]: Aisha Mark on 08/07/20 8:15 am * Is the patient Alert and Oriented? Yes * How many steps to enter\\exit or inside your home? 2/0 * PCP Dr. Young in [place] * Pharmacy [facility] in [place] * Preadmission Environment Branch Assistant Acute Care Facility * Facility Name [facility] in [place] * ADLs Partial Dependent * Partial ADLs (Assistance needed) Ambulation Medication Management Toileting Transfers * Equipment Cane * List name and contact numbers for known caregivers / representatives who currently or will assist patient after discharge: Keith collier - [phone] * Verbal permission to speak to the caregivers and representatives has been obtained from the patient. Yes * Community resources currently utilized None * Additional services required to return to the preadmission environment? Yes * Can the patient safely return to the preadmission environment? Yes * Has this patient been hospitalized within the prior 30 days at any hospital? Yes Coverage Notice Reviewer: [email or web address] Lux Mark Notice Issued Date-Time: 08/07/2020 8:21 Notice Type: Patient Choice Letter Notice Delivered To: Patient Relationship to Patient: Self Air Brake Worker Name: Delivery Method: HAND - Hand Delivered Tiffany Days: Prior Verbal Notification: Recipient Understood Notice: Yes Recipient Signature: Yes Med Rec Note Co-signed by Attending: Coverage Notice Comment: THUAN for [facility] inpatient rehab or [facility] Last DP export: 08/16/20 2:47 Patient Name: MELY FRY Page [id number] at 1531 All edits/amendments must be made on the electronic document DICTATION DATE: 08/17/201529 MARKETING LIAISON: CHAS 08/17/201529 RPT#: [id number] DC DATE: STATUS: ADM IN [facility] [address] [place] [address] END OF REPORT
[2020-08-17 16:35] VITALS: BP 106/73
--- NOTE | 2020-08-17 18:45 | NUR ---
PATIENT RETURNED FROM DIALYSIS WITH SALINE LOCK PULLED OUT, ATTEMPTED 3 TIMES TO RESITE, ASK GUEST SERVICES ASSISTANT TO RESITE, CALLED ER AND ICU FOR ASSISTANCE AND COULD GET NO HELP. AT THIS POINT WILL HAND OFF TO LEGAL INSTRUCTOR.
--- NOTE | 2020-08-17 19:05 | NUR ---
REPORT RECEIVED, PT CARE ASSUMED. WROTE NAME ON BOARD. PT LYING IN BED, VISITING WITH FIANCE AT BEDSIDE. REQUESTING WATER AND CUP OF ICE, PROVIDED. DENIES ANY OTHER NEEDS AT THIS TIME. BED IN LOWEST, SRX2, CALL LIGHT WITHIN REACH. WILL CTM.
[2020-08-17 20:30] VITALS: BP 126/63
[2020-08-18 04:30] VITALS: BP 139/80
[2020-08-18 07:44] LABS: ALBUMIN 1.8 g/dL (3.4-5.0); ANION GAP 18.2 mmol/L (8-16); BILIRUBIN - TOTAL 0.31 mg/dL (0.2-1.3); CARBON DIOXIDE 22.8 mmol/L (21.0-32.0); CREATININE - SERUM 7.3 mg/dL (0.6-1.3); PHOSPHOROUS 5.3 mg/dL (2.5-4.9); PROTEIN - SERUM 5.4 g/dL (6.4-8.2)
[2020-08-18 07:45] LABS: CALCIUM 6.8 mg/dL (8.5-10.1)
--- NOTE | 2020-08-18 08:00 | NUR ---
PT LYING IN BED WITH EYES CLOSED. CHEST RISING AND FALLING. ON ROOM AIR. BED LOW. CL IN REACH. WILL CONTINUE TO MONITOR.
[2020-08-18 09:04] VITALS: BP 128/68; BP 150/69
--- NOTE | 2020-08-18 10:18 | NUR ---
SPOKE WITH KIRBY LOVELACE AND STATES PT DOES NOT NEED IV AND CALCIUM IS OK BECAUSE IT WAS CORRECTED. I VERBALIZED UDNERSTANDING.
[2020-08-18 10:23] LABS: BASOPHILS 0.3 % (0-2); EOSINOPHILS 6.1 % (0-7); IMMATURE GRANULOCYTES 1.1 % (0-5); LYMPHOCYTES 12.7 % (15-50); MCH 26.9 pg (26.0-34.0); MCHC 31.3 g/dL (31.0-37.0); MCV 86.1 fL (80.0-100.0); MEAN PLATELET VOLUME 9.6 fL (7.4-10.4); MONOCYTES 11.2 % (2-11); NEUTROPHILS 68.6 % (40-80); PLATELET COUNT 228 10x3/uL (130-400); RDW 15.9 % (11.5-14.5); WBC 11.5 10x3/uL (4.8-10.8)
[2020-08-18 10:33] LABS: HEMATOCRIT 30.4 % (36.0-48.0); HEMOGLOBIN 9.5 g/dL (12-16); RBC 3.53 10x6/uL (4.00-5.40)
[2020-08-18 12:46] VITALS: BP 142/78
--- NOTE | 2020-08-18 13:06 | NUR ---
I have reviewed this patient and I concur with the Shift Assessment completed by the Licensed Practical Nurse today this shift.
[2020-08-18 17:30] VITALS: BP 135/78
[2020-08-18 20:00] VITALS: BP 146/77
[2020-08-19] VITALS: BP 113/56
[2020-08-19 06:55] LABS: BASOPHILS 0.3 % (0-2); EOSINOPHILS 8.8 % (0-7); HEMATOCRIT 28.9 % (36.0-48.0); HEMOGLOBIN 9.1 g/dL (12-16); IMMATURE GRANULOCYTES 1.5 % (0-5); LYMPHOCYTES 14.3 % (15-50); MCH 27.2 pg (26.0-34.0); MCHC 31.5 g/dL (31.0-37.0); MCV 86.3 fL (80.0-100.0); MEAN PLATELET VOLUME 9.3 fL (7.4-10.4); NEUTROPHILS 62.1 % (40-80); PLATELET COUNT 217 10x3/uL (130-400); RBC 3.35 10x6/uL (4.00-5.40); RDW 15.9 % (11.5-14.5); WBC 8.9 10x3/uL (4.8-10.8)
[2020-08-19 07:31] LABS: ALBUMIN 1.7 g/dL (3.4-5.0); ANION GAP 19.7 mmol/L (8-16); BILIRUBIN - TOTAL 0.38 mg/dL (0.2-1.3); CALCIUM 7.3 mg/dL (8.5-10.1); CARBON DIOXIDE 24.5 mmol/L (21.0-32.0); CREATININE - SERUM 7.9 mg/dL (0.6-1.3); POTASSIUM - SERUM 4.2 mmol/L (3.5-5.1); PROTEIN - SERUM 5.5 g/dL (6.4-8.2)
--- NOTE | 2020-08-19 10:13 | NUR ---
NURSE TAKES PATIENT CUP OF ICE. PATIENT DENIES FURTHER NEEDS. CALL LIGHT IN REACH
[2020-08-19 10:23] VITALS: BP 126/71
--- NOTE | 2020-08-19 12:18 | NUR ---
KELLYT GIVEN PRN PAIN MEDS FOR RIGHT SHOULDER PAIN. GENERALIZED PAIN. PATIENT SITTING UP EATING LUNCH/ PATIENT INSTRUCTED TO CALL OUT WHEN DONE SO NURSE COULD PUT NEW DRESSING ON HER CATH.
[2020-08-19 14:34] VITALS: BP 126/73
--- NOTE | 2020-08-19 15:17 | NUR ---
OT NOTE: PT REPORTED FEELING BETTER TODAY. REQUESTING A SHOWER BECAUSE SHE REPORTS BEING UNABLE TO TAKE A SHOWER FOR MONTHS. ASSISTED PT WITH SHOWER THIS AM. MIN ASSIST FOR SUPINE TO SIT; COVERED ALL AREAS WITH DRESSING WITH TAPE AND PLASTIC TO PREVENT BANDAGES FROM GETTING WET. AMB WITH WALKER TO SHOWER AND TRANSFER TO SHOWER CHAIR, ALL WITH MIN ASSIST; BATHING WITH MIN ASSIST FOR LES AND SET UP FOR REMAINDER. MOD ASSIST TO DRY OFF. MIN ASSIST TO FRANDY GOWN AND MIN ASSIST TO FRANDY SOCKS. PT REPORTED FEELING SO MUCH BETTER FOLLOWING A SHOWER. ASSISTED PT TO CHAIR AND NURSING WAS THERE TO REPLACE BANDAGES. JAMA BROTHERS, OTR/L [phone] D
--- NOTE | 2020-08-19 16:10 | MORECARE ---
CASE MANAGEMENT DISCHARGE SUMMARY PATIENT: MELY FRY UNIT: [id number] ADM DATE: 07/31/20 AGE: 45 : 79 SEX: F ROOM/BED: D.2103 AUTHOR: CAL,DOC PHYSICIAN: REFERRING PHYSICIAN: MIGNON MACHADO MD DATE OF SERVICE: 08/19/20 Discharge Plan Patient Name: MELY FRY Facility: [facility]:[place] : 1975 Planned Disposition: Inpatient Rehab Anticipated Discharge Date: 08/19/20 Discharge Date: Expected LOS: 19 Initial Reviewer: [email or web address] Initial Review Date: 08/06/2020 Generated: 08/19/20 5:10 pm Comments DCP- Discharge Planning Updated by [id number]: Geronimo Coello on 08/17/20 2:[address] Spoke with [facility] in regards to request from staffing program manager query for DC potential. [facility] stated that they could not intake on the weekend due to the lack of admin staff. CM will follow and assist PRN. DCP- Discharge Planning Updated by [email or web address]: Lara Klein on 08/16/20 2:[address] CM spoke with Joyce this morning ([facility]). The plan is for patient to DC today to [facility]. Patient is pending surgery and HD. DCP- Discharge Planning Updated by [id number]: Aisha Mark on 08/14/20 3:[address] Dulce Maria with [facility] called and states they have Auth from patient's insurance for admission. I informed Dulce Maria of the fistulagram today and she may need to do PD. Dulce Maria states that the nurses there cannot assist with PD, so the patient or family member would need to do all PD themselves and use their own supplies. I called Norma Pat and informed her, they will assess patient in the am. CM will continue to follow and assist with discharge planning/needs. DCP- Discharge Planning Updated by [email or web address]: Aisha Mark on 08/12/20 9:[address] Updated clinical faxed to [facility] and I spoke with Dulce Maria. Dulce Maria states she will submit updates to insurance for PA. CM will continue to follow and assist with discharge planning/needs. DCP- Discharge Planning Updated by [id number]: Aisha Mark on 08/09/20 6:[address] Updated clinical with PT/OT notes faxed to [facility] INpatient rehab. CM will continue to follow and assist with discharge planning/needs. DCP- Discharge Planning Updated by [id number]: Lara Ernie on 08/08/20 4:[address] CM left a message for Joyce with [facility] regarding acceptance, but has not received a response as yet. DCP- Discharge Planning Updated by [id number]: Aisha Mark on 08/07/20 10:[address] CM received a call from patient's boyfriend stating he had just spoken to patient and she would prefer a referral to [facility]. I have called Dulce Maria with [facility] and clinical faxed. She is pending possible surgery Wednesday, so will continue to follow. CM will continue to follow and assist with discharge planning/needs. DCP- Discharge Planning Updated by [id number]: Aisha Mark on 08/07/20 7:[address] Patient Name: MELY FRY Admission Status: Elective Accout number: [id number] Admission Date: 07-31-2020 : 1975 Admission Diagnosis:OTH COMPLICATION OF VASCULAR PROSTH DEV/LIBRA, INIT Attending: Mignon Machado Current LOS: 7 Anticipated DC Date: Unknown Planned Disposition: Inpatient Rehab Primary Insurance: [facility] MANAGED MEDICAID Discharge Planning Comments: CM met with patient to complete initial dc planning assessment. CM educated patient on the CM role and verbal consent given by patient to complete assessment. CM verified patient's address, phone number, and emergency contact phone numbers. At discharge patient plans to go to an inpatient rehab. THUAN form signed by patient for [facility] inpatient rehab or [facility]. States "whoever will take my insurance. Signed form placed in chart and signed form given to patient. I discussed SNF as well, she does not want to choose a SNF at this time. CM will continue to follow and will assist as needed with dc plans/needs. Abap Developer: Aisha Mark DCPIA - Discharge Planning Initial Assessment Updated by [email or web address]: Aisha Mark on 08/07/20 8:15 am * Is the patient Alert and Oriented? Yes * How many steps to enter\\exit or inside your home? 2/0 * PCP Dr. Young in [place] * Pharmacy [facility] in [place] * Preadmission Environment Retirement Acute Care Facility * Facility Name [facility] in [place] * ADLs Partial Dependent * Partial ADLs (Assistance needed) Ambulation Medication Management Toileting Transfers * Equipment Cane * List name and contact numbers for known caregivers / representatives who currently or will assist patient after discharge: Keith collier - [phone] * Verbal permission to speak to the caregivers and representatives has been obtained from the patient. Yes * Community resources currently utilized None * Additional services required to return to the preadmission environment? Yes * Can the patient safely return to the preadmission environment? Yes * Has this patient been hospitalized within the prior 30 days at any hospital? Yes Coverage Notice Reviewer: [id number] Lux Mark Notice Issued Date-Time: 08/07/2020 8:21 Notice Type: Patient Choice Letter Notice Delivered To: Patient Relationship to Patient: Self Public Affairs Director Name: Delivery Method: HAND - Hand Delivered Tiffany Days: Prior Verbal Notification: Recipient Understood Notice: Yes Recipient Signature: Yes Med Rec Note Co-signed by Attending: Coverage Notice Comment: THUAN for [facility] inpatient rehab or [facility] Last DP export: 08/17/20 2:31 Patient Name: MELY FRY Page [id number] at 1610 All edits/amendments must be made on the electronic document DICTATION DATE: 08/19/20 1610 EXPRESS MANAGER: CHAS 08/19/20 1610 RPT#: [id number] DC DATE: STATUS: ADM IN [facility] [address] [place] [address] END OF REPORT
--- NOTE | 2020-08-19 16:36 | MORECARE ---
CASE MANAGEMENT DISCHARGE SUMMARY PATIENT: MELY FRY UNIT: [id number] ADM DATE: 07/31/20 AGE: 45 : [birth year] SEX: F ROOM/BED: D.2103 AUTHOR: CAL,DOC PHYSICIAN: REFERRING PHYSICIAN: MIGNON MACHADO MD DATE OF SERVICE: 08/19/20 Discharge Plan Patient Name: MELY FRY Facility: [facility]:[place] : 1975 Planned Disposition: Inpatient Rehab Anticipated Discharge Date: 08/19/20 Discharge Date: Expected LOS: 19 Initial Reviewer: [email or web address] Initial Review Date: 08/06/2020 Generated: 08/19/20 5:35 pm Comments DCP- Discharge Planning Updated by [id number]: Geronimo Coello on 08/17/20 2:[address] Spoke with [facility] in regards to request from medical staff specialist query for DC potential. [facility] stated that they could not intake on the weekend due to the lack of admin staff. CM will follow and assist PRN. DCP- Discharge Planning Updated by [email or web address]: Lara Klein on 08/16/20 2:[address] CM spoke with Joyce this morning ([facility]). The plan is for patient to DC today to [facility]. Patient is pending surgery and HD. DCP- Discharge Planning Updated by [id number]: Aisha Mark on 08/14/20 3:[address] Dulce Maria with [facility] called and states they have Auth from patient's insurance for admission. I informed Dulce Maria of the fistulagram today and she may need to do PD. Dulce Maria states that the nurses there cannot assist with PD, so the patient or family member would need to do all PD themselves and use their own supplies. I called Nomra Pat and informed her, they will assess patient in the am. CM will continue to follow and assist with discharge planning/needs. DCP- Discharge Planning Updated by [id number]: Aisha Mark on 08/12/20 9:[address] Updated clinical faxed to [facility] and I spoke with Dulce Maria. Dulce Maria states she will submit updates to insurance for PA. CM will continue to follow and assist with discharge planning/needs. DCP- Discharge Planning Updated by [email or web address]: Aisha Mark on 08/09/20 6:[address] Updated clinical with PT/OT notes faxed to [facility] INpatient rehab. CM will continue to follow and assist with discharge planning/needs. DCP- Discharge Planning Updated by [email or web address]: Lara Ernie on 08/08/20 4:[address] CM left a message for Joyce with [facility] regarding acceptance, but has not received a response as yet. DCP- Discharge Planning Updated by [id number]: Aisah Mark on 08/07/20 10:[address] CM received a call from patient's boyfriend stating he had just spoken to patient and she would prefer a referral to [facility]. I have called Dulce Maria with [facility] and clinical faxed. She is pending possible surgery Wednesday, so will continue to follow. CM will continue to follow and assist with discharge planning/needs. DCP- Discharge Planning Updated by [id number]: Aisha Mark on 08/07/20 7:[address] Patient Name: MELY FRY Admission Status: Elective Accout number: [id number] Admission Date: 07-31-2020 : 1975 Admission Diagnosis:OTH COMPLICATION OF VASCULAR PROSTH DEV/LIBRA, INIT Attending: Mignon Machado Current LOS: 7 Anticipated DC Date: Unknown Planned Disposition: Inpatient Rehab Primary Insurance: [facility] MANAGED MEDICAID Discharge Planning Comments: CM met with patient to complete initial dc planning assessment. CM educated patient on the CM role and verbal consent given by patient to complete assessment. CM verified patient's address, phone number, and emergency contact phone numbers. At discharge patient plans to go to an inpatient rehab. THUAN form signed by patient for [facility] inpatient rehab or [facility]. States "whoever will take my insurance. Signed form placed in chart and signed form given to patient. I discussed SNF as well, she does not want to choose a SNF at this time. CM will continue to follow and will assist as needed with dc plans/needs. Paste Mixer: Aisha Mark DCPIA - Discharge Planning Initial Assessment Updated by [email or web address]: Aisha Mark on 08/07/20 8:15 am * Is the patient Alert and Oriented? Yes * How many steps to enter\\exit or inside your home? 2/0 * PCP Dr. Young in [place] * Pharmacy [facility] in [place] * Preadmission Environment [facility] * Facility Name [facility] in [place] * ADLs Partial Dependent * Partial ADLs (Assistance needed) Ambulation Medication Management Toileting Transfers * Equipment Cane * List name and contact numbers for known caregivers / representatives who currently or will assist patient after discharge: Keith collier - [phone] * Verbal permission to speak to the caregivers and representatives has been obtained from the patient. Yes * Community resources currently utilized None * Additional services required to return to the preadmission environment? Yes * Can the patient safely return to the preadmission environment? Yes * Has this patient been hospitalized within the prior 30 days at any hospital? Yes External Providers External Provider: [facility] Next Contact Date: Service Request Date: Service Type: Resolution: Reviewer: Comments: Coverage Notice Reviewer: [email or web address] Lux Mark Notice Issued Date-Time: 08/07/2020 8:21 Notice Type: Patient Choice Letter Notice Delivered To: Patient Relationship to Patient: Self Extractions Technologist Name: Delivery Method: HAND - Hand Delivered Tiffany Days: Prior Verbal Notification: Recipient Understood Notice: Yes Recipient Signature: Yes Med Rec Note Co-signed by Attending: Coverage Notice Comment: THUAN for [facility] inpatient rehab or [facility] Last DP export: 08/19/20 3:10 Patient Name: MELY FRY Page [id number] at 1636 All edits/amendments must be made on the electronic document DICTATION DATE: 08/19/20 1636 OSTOMY RN: CHAS 08/19/20 1636 RPT#: [id number] DC DATE: STATUS: ADM IN [facility] [address] [place] [address] END OF REPORT
--- NOTE | 2020-08-19 17:50 | NUR ---
REPORT GIVEN TO [facility] NURSE MAX BEFORE PATIENT TRANSFER.
--- NOTE | 2020-08-21 09:28 | MORECARE ---
CASE MANAGEMENT DISCHARGE SUMMARY PATIENT: MELY FRY UNIT: [id number] ADM DATE: 07/31/20 AGE: 45 : [birth year] SEX: F ROOM/BED: D.2103 AUTHOR: CAL,DOC PHYSICIAN: REFERRING PHYSICIAN: MIGNON MACHADO MD DATE OF SERVICE: 08/21/20 Discharge Plan Patient Name: MELY FRY Facility: [facility]:[place] : 1975 Planned Disposition: Inpatient Rehab Anticipated Discharge Date: 08/19/20 Discharge Date: 08/19/2020 Expected LOS: 19 Initial Reviewer: [email or web address] Initial Review Date: 08/06/2020 Generated: 08/21/20 10:27 am Comments DCP- Discharge Planning Updated by [email or web address]: Geronimo Coello on 08/17/20 2:[address] Spoke with [facility] in regards to request from public health staff nurse query for DC potential. [facility] stated that they could not intake on the weekend due to the lack of admin staff. CM will follow and assist PRN. DCP- Discharge Planning Updated by [email or web address]: Lara Klein on 08/16/20 2:[address] CM spoke with Joyce this morning ([facility]). The plan is for patient to DC today to [facility]. Patient is pending surgery and HD. DCP- Discharge Planning Updated by [email or web address]: Aisha Mark on 08/14/20 3:[address] Dulce Maria with [facility] called and states they have Auth from patient's insurance for admission. I informed Dulce Maria of the fistulagram today and she may need to do PD. Dulce Maria states that the nurses there cannot assist with PD, so the patient or family member would need to do all PD themselves and use their own supplies. I called Norma Pat and informed her, they will assess patient in the am. CM will continue to follow and assist with discharge planning/needs. DCP- Discharge Planning Updated by [email or web address]: Aisha Mark on 08/12/20 9:[address] Updated clinical faxed to [facility] and I spoke with Dulce Maria. Dulce Maria states she will submit updates to insurance for PA. CM will continue to follow and assist with discharge planning/needs. DCP- Discharge Planning Updated by [email or web address]: Aisha Mark on 08/09/20 6:[address] Updated clinical with PT/OT notes faxed to [facility] INpatient rehab. CM will continue to follow and assist with discharge planning/needs. DCP- Discharge Planning Updated by [id number]: Lara Ernie on 08/08/20 4:[address] CM left a message for Joyce with [facility] regarding acceptance, but has not received a response as yet. DCP- Discharge Planning Updated by [email or web address]: Aisha Mark on 08/07/20 10:[address] CM received a call from patient's boyfriend stating he had just spoken to patient and she would prefer a referral to [facility]. I have called Dulce Maria with [facility] and clinical faxed. She is pending possible surgery Wednesday, so will continue to follow. CM will continue to follow and assist with discharge planning/needs. DCP- Discharge Planning Updated by [email or web address]: Aisha Mark on 08/07/20 7:[address] Patient Name: MELY FRY Admission Status: Elective Accout number: [id number] Admission Date: 07-31-2020 : 1975 Admission Diagnosis:OTH COMPLICATION OF VASCULAR PROSTH DEV/LIBRA, INIT Attending: Mignon Machado Current LOS: 7 Anticipated DC Date: Unknown Planned Disposition: Inpatient Rehab Primary Insurance: [facility] MEDICAID Discharge Planning Comments: CM met with patient to complete initial dc planning assessment. CM educated patient on the CM role and verbal consent given by patient to complete assessment. CM verified patient's address, phone number, and emergency contact phone numbers. At discharge patient plans to go to an inpatient rehab. THUAN form signed by patient for [facility] inpatient rehab or [facility]. States "whoever will take my insurance. Signed form placed in chart and signed form given to patient. I discussed SNF as well, she does not want to choose a SNF at this time. CM will continue to follow and will assist as needed with dc plans/needs. Commercial Specialist: Aisha Mark DCPIA - Discharge Planning Initial Assessment Updated by [email or web address]: Aisha Mark on 08/07/20 8:15 am * Is the patient Alert and Oriented? Yes * How many steps to enter\\exit or inside your home? 2/0 * PCP Dr. Young in [place] * Pharmacy [facility] in [place] * Preadmission Environment [facility] * Facility Name [facility] in [place] * ADLs Partial Dependent * Partial ADLs (Assistance needed) Ambulation Medication Management Toileting Transfers * Equipment Cane * List name and contact numbers for known caregivers / representatives who currently or will assist patient after discharge: Keith collier - [phone] * Verbal permission to speak to the caregivers and representatives has been obtained from the patient. Yes * Community resources currently utilized None * Additional services required to return to the preadmission environment? Yes * Can the patient safely return to the preadmission environment? Yes * Has this patient been hospitalized within the prior 30 days at any hospital? Yes Coverage Notice Reviewer: [id number] Lux Mark Notice Issued Date-Time: 08/07/2020 8:21 Notice Type: Patient Choice Letter Notice Delivered To: Patient Relationship to Patient: Self Belt Cleaner Name: Delivery Method: HAND - Hand Delivered Tiffany Days: Prior Verbal Notification: Recipient Understood Notice: Yes Recipient Signature: Yes Med Rec Note Co-signed by Attending: Coverage Notice Comment: THUAN for [facility] inpatient rehab or [facility] Last DP export: 08/19/20 3:36 Patient Name: MELY FRY Page [id number] at 0928 All edits/amendments must be made on the electronic document DICTATION DATE: 08/21/20926 RETAIL BANKING MANAGER: CHAS 08/21/20926 RPT#: [id number] DC DATE:08/19/20 STATUS: DIS IN [facility] [address] [place] [address] END OF REPORT
== END 2020-08-19 18:32 | DRG 252 ==
LOC: D.M2 19:11
PROVIDERS: General Practice; Internal Medicine; Internal Medicine Nephrology; Specialist; Surgery; ADMIT Internal Medicine Nephrology; ATTEND Internal Medicine Nephrology
PROC: 5A1D70Z Performance of Urinary Filtration, Intermittent, Less than 6 Hours Per Day (ICD-10-PCS; 2020-08-01)
PROC: 03V Upper Arteries, Restriction (ICD-10-PCS; principal; 2020-08-09 11:30)
PROC: B51W1ZZ Fluoroscopy of Dialysis Shunt/Fistula using Low Osmolar Contrast (ICD-10-PCS; 2020-08-13)
PROC: 3C1ZX8Z Irrigation of Indwelling Device using Irrigating Substance, External Approach (ICD-10-PCS; 2020-08-13)
PROC: 05WY3JZ Revision of Synthetic Substitute in Upper Vein, Percutaneous Approach (ICD-10-PCS; 2020-08-14)
PROC: 0JH63XZ Insertion of Tunneled Vascular Access Device into Chest Subcutaneous Tissue and Fascia, Percutaneous Approach (ICD-10-PCS; 2020-08-16)
PROC: 05HM33Z Insertion of Infusion Device into Right Internal Jugular Vein, Percutaneous Approach (ICD-10-PCS; 2020-08-16)
PROC: B5131ZA Fluoroscopy of Right Jugular Veins using Low Osmolar Contrast, Guidance (ICD-10-PCS; 2020-08-16)
PROC: B51W1ZZ Fluoroscopy of Dialysis Shunt/Fistula using Low Osmolar Contrast (ICD-10-PCS; 2020-08-16)
PROC: 03CY3ZZ Extirpation of Matter from Upper Artery, Percutaneous Approach (ICD-10-PCS; 2020-08-16 11:45)
DX: T82.898A Other specified complication of vascular prosthetic devices, implants and grafts, initial encounter (principal); N18.6 End stage renal disease; I12.0 Hypertensive chronic kidney disease with stage 5 chronic kidney disease or end stage renal disease; E87.1 Hypo-osmolality and hyponatremia; R78.81 Bacteremia; Y83.9 Surgical procedure, unspecified as the cause of abnormal reaction of the patient, or of later complication, without mention of misadventure at the time of the procedure; E11.22 Type 2 diabetes mellitus with diabetic chronic kidney disease; D63.1 Anemia in chronic kidney disease; R00.0 Tachycardia, unspecified; E83.39 Other disorders of phosphorus metabolism; Z99.2 Dependence on renal dialysis

== ENCOUNTER 2021-04-22 06:16 | Day surgery (SDC) | payer MEDICARE, OTHER ==
[~2021-04-22] VITALS: Ht 175.3 cm; Wt 93.0 kg
--- NOTE | ~2021-04-22 | OP ---
PATIENT NAME: MELY FRY MEDICAL RECORD: [id number] :[birth year] LOCATION:[facility] ADMISSION DATE: SURGEON: GABRIELA STEELE MD DATE OF OPERATION: 04/22/2021 SURGEON: Gabriela Steele MD ANESTHESIA: General with LMA per [facility] MANAGEMENT SPECIALIST REFERRING PHYSICIAN: Mignon Rai MD PREOPERATIVE DIAGNOSES: End-stage renal disease, dependence on intermittent dialysis and malfunctioning peritoneal dialysis catheter. POSTOPERATIVE DIAGNOSES: End-stage renal disease, dependence on intermittent dialysis and malfunctioning peritoneal dialysis catheter. OPERATION PERFORMED: Removal of peritoneal dialysis catheter. SURGEON: Gabriela Steele MD PREOPERATIVE NOTE: Ms. Fry is a 45-year-old white female patient from [facility]. She has end-stage renal disease and is presently dialyzing with an AV graft in her left arm. She had a peritoneal dialysis catheter inserted months ago, but it has simply not functioned for her and rather than allowing me to revise it as we had originally planned for today she has requested that I remove the catheter. Honoring her wishes, we will go ahead with that simple procedure in the OR today. DESCRIPTION OF PROCEDURE: Under anesthesia in supine position, the patient was prepped and draped in sterile manner. Rincon catheter was inserted and at the end of the case withdrawn, there being a confusion whether this case would involve laparoscopy, which it did not. I made a small incision near the catheter exit site and exposed the superficial Dacron cuff. I put traction on the catheter and I was then able to palpate the course of the catheter subcutaneously to the subumbilical midline where I made another midline incision through the skin and subcutaneous tissues and exposed the catheter and the deep Dacron felt cuff just deep to the anterior rectus sheath. This was all dissected free of surrounding structures and the catheter then easily withdrawn from the peritoneal cavity. There was no purulence or signs of infection. There was no biofilm. The catheter was divided in two and the two segments were removed and they were discarded, but only after I examined him and irrigated the catheter both fragments and found some rcag-gl-ativoknf fibrin present, but no significant obstruction as they actually irrigated fairly easily. These specimens were not submitted for any pathological review, but were discarded. The patient's wounds were irrigated with Ancef and gentamicin solution. I did not think that a heavy stitch was necessary to approximate the small existing defect in the anterior rectus sheath. Instead, the wound after irrigation was infiltrated with 0.25% Marcaine without epinephrine and then closed without the use of drain with interrupted inverted 3-0 Vicryl. The smaller wound at the exit site was handled in a similar manner. Skin closure was completed with running intracuticular 4-0 Stratafix and Dermabond glue. The 2 wound sites were OPERATIVE REPORT [id number] MELY FRY both dressed with Maxorb AG, Tegaderm and Cavilon skin prep. The patient awakened was taken to the recovery room in stable condition. Blood loss during the operation was about 2 mL, unreplaced. Sponges, instruments and needles were accounted for. No drain was used. PLAN: The patient will go home today and continue her usual diet, medications and exercise and dialysis schedule. She will return to see me in my office next week for wound check. I will plan to remove the initial operative dressings at that time. She was given an office telephone number and my personal cell phone number to call if she has any problems or concerns in the interim. There are also instructions for her to call for a telemed visit with me or my nurse if she or her nurses at dialysis have any concerns or problems with her dressings or wounds. TRANSINT:[id number] Voice Confirmation ID: [id number] DOCUMENT ID: [id number] GABRIELA STEELE MD CC: GEORGIANA VERGARA RN and MIGNON RAI MD [id number] DICTATION DATE: 04/22/21 1049 CONTROL ENGINEER: 04/22/21 1126 [facility] [address] [place] [address]
[~2021-04-22 06:16] MED LIST changes: +COLACE100 MG PO; +LOPRESSOR25 MG PO; +PHOSLO667 MG PO; +PROTONIX40 MG PO; +REGLAN5 MG PO; +Retacrit IV; +ZYLOPRIM100 MG PO
[2021-04-22 06:36] LABS: BASOPHILS 0.8 % (0-2); EOSINOPHILS 3.9 % (0-7); HEMATOCRIT 34.4 % (36.0-48.0); HEMOGLOBIN 11.3 g/dL (12-16); LYMPHOCYTES 14.7 % (15-50); MCH 31.4 pg (26.0-34.0); MCHC 32.9 g/dL (31.0-37.0); MCV 95.6 fL (80.0-100.0); MEAN PLATELET VOLUME 7.3 fL (7.4-10.4); NEUTROPHILS 72.6 % (40-80); PLATELET COUNT 212 10x3/uL (130-400); WBC 8.9 10x3/uL (4.8-10.8)
[2021-04-22 06:40] LABS: ANION GAP 17.2 mmol/L (8-16); CALCIUM 8.2 mg/dL (8.5-10.1); CARBON DIOXIDE 26.1 mmol/L (21.0-32.0); CREATININE - SERUM 5.2 mg/dL (0.6-1.3); POTASSIUM - SERUM 4.3 mmol/L (3.5-5.1)
[2021-04-22 06:58] LABS: INR 1.03 (0.85-1.17); PROTIME 12.5 SECONDS (11.6-15.0)
[2021-04-22] MEDS ORDERED: LOPRESSOR25 MG PO (08:15)
[2021-04-22] MEDS ORDERED: RETACRIT IV (08:17)
[2021-04-22] MEDS ORDERED: KLONOPIN0.5 MG PO (08:19)
[2021-04-22] MEDS ORDERED: RENA-VITE TABL0.8 MG PO (08:19)
[2021-04-22] MEDS ORDERED: LINZESS72 MCG PO (08:19)
[2021-04-22 08:31] VITALS: Ht 175.3 cm; Wt 93.0 kg
--- NOTE | 2021-04-22 14:44 | NUR ---
1230 - IV D/C'D WITH TIP INTACT. DRESSED FOR DISCHARGE.
--- NOTE | 2021-04-22 14:45 | NUR ---
1335 - PATIENT DISCHARGED VIA WHEELCHAIR TO PRIVATE CAR.
== END 2021-04-22 13:35 | disposition home or self-care (01) ==
LOC: D.OPS 06:16
PROVIDERS: Surgery; ATTEND Internal Medicine Nephrology
DX: N18.6 End stage renal disease (principal); Z99.2 Dependence on renal dialysis; T85.611A Breakdown (mechanical) of intraperitoneal dialysis catheter, initial encounter; I10 Essential (primary) hypertension